=== PATIENT | male | born 1930 | race Caucasian/White ===

== ENCOUNTER 2018-11-13 12:27 | Observation (INO) | payer MEDICARE ==
[2018-11-13] MEDS ORDERED: Sodium Chloride 0.9% 1000 ML 1,000 ML IV STA (13:27)
--- NOTE | 2018-11-13 13:34 | ERPHSYRPT ---
- History of Present Illness Time Seen by Provider: 11/13/18 13:31 Source: patient, family Exam Limitations: no limitations Patient Subjective Stated Complaint: overall weakness, hasn't really ate anything since , no desire to drink anything, tingling in right middle finger for 1 week, just doesn't feel right Triage Nursing Assessment: Pt c/o of overall weakness for the past couple of days, hasn't really ate anything since , no desire to drink anything, mucous membranes dry, tingling in right middle finger for past week, was on vacation and family reports some confusion that has resolved, states "I just don 't feel right", lungs clear, vitals normal, pulses normal, sinus rhythm, A&O x3 , walked with unsteady gait, denies pain Physician History: overall weakness, hasn't really ate anything since , no desire to drink anything, tingling in right middle finger for 1 week, just doesn't feel right family reports some confusion that has resolved, states "I just don't feel right " Timing/Duration: day(s) Associated Symptoms: weakness Allergies/Adverse Reactions: No Known Drug Allergies Allergy (Verified 07/29/16 15:26) Home Medications: [place]-3 Fatty Acids [[place]-3] 1,000 mg PO DAILY 09/16/14 [History] FA/Mv,Ca,Iron,Min/Lycopene/Lut [Centrum Tablet] 1 each PO DAILY 12/12/14 [ History] Indapamide 2.5 mg PO DAILY 12/12/14 [History] Metoprolol Tartrate 25 mg PO DAILY 12/12/14 [History] Gabapentin 300 mg PO TID 11/13/18 [History] Hx Tetanus, Diphtheria Vaccination/Date Given: Yes (UNKNOWN) Hx Influenza Vaccination/Date Given: Yes Hx Pneumococcal Vaccination/Date Given: Yes - Review of Systems Constitutional: Weakness, No Fever, No Chills Eyes: No Symptoms Ears, Nose, & Throat: No Symptoms Respiratory: No Cough, No Dyspnea Cardiac: No Chest Pain, No Edema, No Syncope Abdominal/Gastrointestinal: No Abdominal Pain, No Nausea, No Vomiting, No Diarrhea Genitourinary Symptoms: No Dysuria Musculoskeletal: No Back Pain, No Neck Pain Skin: No Rash Neurological: No Dizziness, No Focal Weakness, No Sensory Changes Psychological: No Symptoms Endocrine: No Symptoms All Other Systems: Reviewed and Negative - Past Medical History Pertinent Past Medical History: Yes Neurological History: No Pertinent History ENT History: No Pertinent History Cardiac History: Hypertension Respiratory History: No Pertinent History Endocrine Medical History: No Pertinent History Musculoskeletal History: Arthritis, Degenerative Disk Disease GI Medical History: No Pertinent History History: No Pertinent History Psycho-Social History: No Pertinent History Male Reproductive Disorders: No Pertinent History Other Medical History: BACK PAIN, Abdominal aortic aneurysm - Past Surgical History Past Surgical History: Yes Neuro Surgical History: No Pertinent History Cardiac: No Pertinent History Respiratory: No Pertinent History Gastrointestinal: Cholecystectomy, Other Genitourinary: No Pertinent History Musculoskeletal: Orthopedic Surgery Male Surgical History: No Pertinent History Other Surgical History: back surgery, EGD w/ dilitation, bilateral knee surgeries-repairs on minicus, VEDA - Social History Smoking Status: Former smoker Exposure to second hand smoke: No Drug Use: none Patient Lives Alone: No - Nursing Vital Signs Nursing Vital Signs: Initial Vital Signs Temperature 98.1 F 11/13/18 12:56 Pulse Rate 95 H 11/13/18 12:56 Blood Pressure 128/83 11/13/18 12:56 O2 Sat by Pulse Oximetry 94 L 11/13/18 12:56 Pain Scale Pain Intensity 0 - Physical Exam General Appearance: no apparent distress, alert Eye Exam: PERRL/EOMI, eyes nml inspection Ears, Nose, Throat Exam: normal ENT inspection, TMs normal, pharynx normal, moist mucous membranes Neck Exam: normal inspection, non-tender, supple, full range of motion Respiratory Exam: normal breath sounds, lungs clear, No respiratory distress Cardiovascular Exam: regular rate/rhythm, normal heart sounds, normal peripheral pulses Gastrointestinal/Abdomen Exam: soft, normal bowel sounds, No tenderness, No mass Back Exam: normal inspection, normal range of motion, No CVA tenderness, No vertebral tenderness Extremity Exam: normal inspection, normal range of motion, pelvis stable Neurologic Exam: alert, oriented x 3, cooperative, normal mood/affect, nml cerebellar function, nml station & gait, sensation nml, No motor deficits Skin Exam: normal color, warm, dry, No rash Lymphatic Exam: No adenopathy SpO2: 94 - Course Nursing assessment & vital signs reviewed: Yes - Radiology Exams Chest X-ray Interpretation: Reviewed by me (COPD changes) Ordered Tests: Active Orders 24 hr Category Date Time Status Clean Catch Urine Specimen STAT Care 11/13/18 13:27 Active EKG-ER Only STAT Care 11/13/18 13:27 Active CHEST 1 VIEW (PORTABLE) Stat Exams 11/13/18 13:44 Taken CBC W DIFF Stat Lab 11/13/18 13:35 Completed CMP Stat Lab 11/13/18 13:35 Completed Lactic Acid Stat Lab 11/13/18 13:27 Completed MAGNESIUM Stat Lab 11/13/18 13:35 Completed NT PRO BNP Stat Lab 11/13/18 13:35 Completed TROPONIN Q3H Lab 11/13/18 13:35 Completed TROPONIN Q3H Lab 11/13/18 16:30 Ordered TROPONIN Q3H Lab 11/13/18 19:30 Ordered TROPONIN Q3H Lab 11/13/18 22:30 Ordered TROPONIN Q3H Lab 11/14/18 01:30 Ordered UA W/RFX UR CULTURE Stat Lab 11/13/18 14:41 Ordered Transfer Order Routine Transfer 11/13/18 Ordered Medication Summary Discontinued Medications Generic Name Dose Route Start Last Admin Trade Name Anastasiya PRN Reason Stop Dose Admin Sodium Chloride 1,000 mls @ 999 mls/hr 11/13/18 13:27 11/13/18 14:53 Sodium Chloride 0.9% 1000 Ml IV 11/13/18 14:27 Infused .Q1H1M STA Infusion Sodium Chloride Confirm 11/13/18 13:36 Sodium Chloride 0.9% 1000 Ml Administered 11/13/18 13:37 Dose 1,000 mls @ ud .ROUTE .STK-MED ONE Lab/Rad Data: Laboratory Result Diagrams 11/13/18 13:35 11/13/18 13:35 Laboratory Results 11/13/18 11/13/18 11/13/18 Range/Units 13:35 13:35 13:35 WBC 11.6 H (4.0-10.5) K/mm3 RBC 3.69 L (4.1-5.6) M/mm3 Hgb 10.9 L (12.5-18.0) gm/dl Hct 33.4 L (42-50) % MCV 90.5 (78-100) fl MCH 29.5 (26-32) pg MCHC 32.6 (32-36) g/dl RDW 14.7 H (11.5-14.0) % Plt Count 226 (150-450) K/mm3 MPV 8.9 (6-9.5) fl Gran % 75.6 H (36.0-66.0) % Eos # (Auto) 0.18 (0-0.5) Absolute Lymphs (auto) 1.69 (1.0-4.6) Absolute Monos (auto) 0.93 (0.0-1.3) Lymphocytes % 14.6 L (24.0-44.0) % Monocytes % 8.0 (0.0-12.0) % Eosinophils % 1.6 (0.00-5.0) % Basophils % 0.2 (0.0-0.4) % Absolute Granulocytes 8.74 H (1.4-6.9) Basophils # 0.02 (0-0.4) Sodium 140 (137-145) mmol/L Potassium 3.0 L (3.5-5.1) mmol/L Chloride 107 (98-107) mmol/L Carbon Dioxide 25 (22-30) mmol/L Anion Gap 11.3 (5-15) MEQ/L BUN 25 H (9-20) mg/dL Creatinine 1.36 H (0.66-1.25) mg/dL Estimated GFR 52.7 ML/MIN Glucose 95 (74-106) mg/dL Lactic Acid (0.4-2.0) Calcium 9.3 (8.4-10.2) mg/dL Magnesium 1.8 (1.6-2.3) mg/dL Total Bilirubin 0.70 (0.2-1.3) mg/dL AST 20 (17-59) U/L ALT 17 (0-50) U/L Alkaline Phosphatase 51 (38-126) U/L Troponin I 0.034 (0.000-0.034) ng/mL NT-Pro-B Natriuret Pep 218 (0-1800) pg/mL Serum Total Protein 6.9 (6.3-8.2) g/dL Albumin 3.5 (3.5-5.0) g/dL 11/13/18 Range/Units 13:27 WBC (4.0-10.5) K/mm3 RBC (4.1-5.6) M/mm3 Hgb (12.5-18.0) gm/dl Hct (42-50) % MCV (78-100) fl MCH (26-32) pg MCHC (32-36) g/dl RDW (11.5-14.0) % Plt Count (150-450) K/mm3 MPV (6-9.5) fl Gran % (36.0-66.0) % Eos # (Auto) (0-0.5) Absolute Lymphs (auto) (1.0-4.6) Absolute Monos (auto) (0.0-1.3) Lymphocytes % (24.0-44.0) % Monocytes % (0.0-12.0) % Eosinophils % (0.00-5.0) % Basophils % (0.0-0.4) % Absolute Granulocytes (1.4-6.9) Basophils # (0-0.4) Sodium (137-145) mmol/L Potassium (3.5-5.1) mmol/L Chloride (98-107) mmol/L Carbon Dioxide (22-30) mmol/L Anion Gap (5-15) MEQ/L BUN (9-20) mg/dL Creatinine (0.66-1.25) mg/dL Estimated GFR ML/MIN Glucose (74-106) mg/dL Lactic Acid 1.1 (0.4-2.0) Calcium (8.4-10.2) mg/dL Magnesium (1.6-2.3) mg/dL Total Bilirubin (0.2-1.3) mg/dL AST (17-59) U/L ALT (0-50) U/L Alkaline Phosphatase (38-126) U/L Troponin I (0.000-0.034) ng/mL NT-Pro-B Natriuret Pep (0-1800) pg/mL Serum Total Protein (6.3-8.2) g/dL Albumin (3.5-5.0) g/dL - Progress Progress: unchanged Discussed with : Beltran (Dr Martínez covering) Will see patient in: hospital (observation) Counseled pt/family regarding: lab results, diagnosis, need for follow-up, rad results - Departure Departure Disposition: Observation Clinical Impression: Hypokalemia UTI (urinary tract infection) Qualifiers: Urinary tract infection type: acute cystitis Hematuria presence: without hematuria Qualified Code(s): N30.00 - Acute cystitis without hematuria Condition: Fair Critical Care Time: Yes Critical Care Time(excluding separately billable procedures): 30-74 minutes Referrals: CRISTINA HORTA MD [Primary Care Provider] -
[2018-11-13] MEDS ORDERED: Sodium Chloride 0.9% 1000 ML 1,000 ML ONE (13:36)
[2018-11-13 14:01] LABS: BASOPHIL % 0.2 % (0.0-0.4); Basophil (Absolute #) 0.02 (0-0.4); Eosinophil % 1.6 % (0.00-5.0); Eosinophil (Absolute #) 0.18 (0-0.5); Granulocyte Absolute (ANC) 8.74 (1.4-6.9); Granulocytes % 75.6 % (36.0-66.0); Hematocrit 33.4 % (42-50); Hemoglobin 10.9 gm/dl (12.5-18.0); Lymphocyte (Absolute #) 1.69 (1.0-4.6); Lymphocytes % 14.6 % (24.0-44.0); Mean Cell Volume 90.5 fl (78-100); Mean Corpuscular Hemoglobin 29.5 pg (26-32); Mean Corpuscular Hgb Concent. 32.6 g/dl (32-36); Mean Platelet Volume 8.9 fl (6-9.5); Monocyte (Absolute #) 0.93 (0.0-1.3); Platelet Count 226 K/mm3 (150-450); Red Blood Count 3.69 M/mm3 (4.1-5.6); Red Cell Distribution Width 14.7 % (11.5-14.0); White Blood Count 11.6 K/mm3 (4.0-10.5)
[2018-11-13 14:24] LABS: ALBUMIN 3.5 g/dL (3.5-5.0); ANION GAP 11.3 MEQ/L (5-15); BILIRUBIN,TOTAL 0.7 mg/dL (0.2-1.3); Calcium 9.3 mg/dL (8.4-10.2); Creatinine 1 1.36 mg/dL (0.66-1.25); MAGNESIUM 1.8 mg/dL (1.6-2.3); Total Protein 6.9 g/dL (6.3-8.2)
[2018-11-13] MEDS ORDERED: TYLENOL 325 MG PO PRN (15:07)
[2018-11-13 15:08] LABS: Appearance CLEAR (CLEAR); Bacteria FEW /HPF (NEGATIVE); Bilirubin NEGATIVE (NEGATIVE); Blood SMALL Ery/ul (0-5); Epithelial Cells RARE /HPF (FEW); Glucose NEGATIVE (NEGATIVE); Ketones SMALL (NEGATIVE); Leukocyte Esterase NEGATIVE (NEGATIVE); Mucus SLIGHT /HPF (NEGATIVE); Nitrite NEGATIVE (NEGATIVE); Protein,Urine Dip 30 (Negative); Specific Gravity 1.019 (1.005-1.025); Urobilinogen 2 mg/dL (0-1)
[2018-11-13] MEDS: ROCEPHIN 1 Gm-D5w 50 ml Bag** 1 G/50 ML IVPB IV SCH (15:56)
[2018-11-13] MEDS: Sodium Chloride 0.9% W/ 20 mEq KCl/LITER 1,000 ML IV SCH (15:56)
--- NOTE | 2018-11-13 20:09 | XRAY ---
Indication: Weakness. Comparison: August 19, 2014. Portable apical lordotic chest hyperinflated again with lingular calcified granuloma. No focal infiltrate, consolidation, or large effusion. Heart and mediastinal structures within normal limits. Bony thorax intact again with mild osteopenia and degenerative changes. Impression: Nonacute hyperinflated chest with chronic features.
[2018-11-13] MEDS: NEURONTIN 300 MG PO SCH (21:19)
[2018-11-13] MEDS: Pepcid 20 MG VIAL IV SCH (21:19)
[2018-11-14 02:41] LABS: BASOPHIL % 0.3 % (0.0-0.4); Basophil (Absolute #) 0.03 (0-0.4); Eosinophil % 3.5 % (0.00-5.0); Eosinophil (Absolute #) 0.36 (0-0.5); Granulocyte Absolute (ANC) 6.87 (1.4-6.9); Hematocrit 28.1 % (42-50); Hemoglobin 9.1 gm/dl (12.5-18.0); Lymphocyte (Absolute #) 2.23 (1.0-4.6); Lymphocytes % 21.5 % (24.0-44.0); Mean Cell Volume 91.2 fl (78-100); Mean Corpuscular Hemoglobin 29.5 pg (26-32); Mean Corpuscular Hgb Concent. 32.4 g/dl (32-36); Monocytes % 8.7 % (0.0-12.0); Platelet Count 194 K/mm3 (150-450); Red Blood Count 3.08 M/mm3 (4.1-5.6); Red Cell Distribution Width 14.4 % (11.5-14.0); White Blood Count 10.4 K/mm3 (4.0-10.5)
[2018-11-14 02:53] LABS: ALBUMIN 2.7 g/dL (3.5-5.0); ALKALINE PHOSPHATASE 43 U/L (38-126); ANION GAP 9.6 MEQ/L (5-15); BLOOD UREA NITROGEN 22 mg/dL (9-20); CHLORIDE 108 mmol/L (98-107); Calcium 8.4 mg/dL (8.4-10.2); Carbon Dioxide 24 mmol/L (22-30); Creatinine 1 1.11 mg/dL (0.66-1.25); Glucose 76 mg/dL (74-106); SGOT/AST 18 U/L (17-59); SGPT/ALT 15 U/L (0-50); SODIUM 139 mmol/L (137-145); Total Protein 5.4 g/dL (6.3-8.2)
[2018-11-14 02:55] LABS: Potassium 3.1 mmol/L (3.5-5.1)
[2018-11-14] MEDS: Sodium Chloride 0.9% W/ 20 mEq KCl/LITER 1,000 ML IV SCH ×2 (03:20→21:32)
--- NOTE | 2018-11-14 08:29 | PCM.HP ---
History of Present Illness - Chief Complaint Chief Complaint: weakness hypokalemia History of Present Illness: is a 87 year old male who arrived yesterday complaining of weakness and feeling poorly, he denies chest pain or shortness of breath. no recent vomiting or diarrhea. he is feeling better since receiving IV fluids. - Review of Systems Constitutional: Weakness, No Fever, No Chills Respiratory: No Cough, No Short Of Breath Cardiac: No Chest Pain, No Edema, No Syncope Abdominal/Gastrointestinal: No Abdominal Pain, No Nausea, No Vomiting, No Diarrhea Genitourinary Symptoms: No Dysuria Skin: No Rash All Other Systems: Reviewed and Negative Medications & Allergies Home Medications: Home Medication List Indapamide 2.5 mg PO DAILY 12/12/14 [History Confirmed 11/13/18] Metoprolol Tartrate 25 mg PO DAILY 12/12/14 [History Confirmed 11/13/18] Gabapentin 300 mg PO TID 11/13/18 [History Confirmed 11/13/18] Allergies/Adverse Reactions: Allergies Allergy/AdvReac Type Severity Reaction Status Date / Time No Known Drug Allergies Allergy Verified 07/29/16 15:26 - Past Medical History Past Medical History: Yes Neurological History: No Pertinent History ENT History: No Pertinent History Cardiac History: Hypertension Respiratory History: No Pertinent History Endocrine Medical History: No Pertinent History Musculoskelatal History: Arthritis, Degenerative Disk Disease GI Medical History: No Pertinent History History: No Pertinent History Pyscho-Social History: No Pertinent History Male Reproductive Disorders: No Pertinent History Comment: BACK PAIN, Abdominal aortic aneurysm - Past Surgical History Past Surgical History: Yes Neuro Surgical History: No Pertinent History Cardiac History: No Pertinent History Respiratory Surgery: No Pertinent History GI Surgical History: Cholecystectomy, Other Genitourinary Surgical Hx: No Pertinent History Musculskeletal Surgical Hx: Orthopedic Surgery Male Surgical History: No Pertinent History Other Surgical History: back surgery, EGD w/ dilitation, bilateral knee surgeries-repairs on minicus, VEDA - Social History Smoking Status: Former smoker Exposure to second hand smoke: No Alcohol: Occasionally Drug Use: none - Physical Exam Vital Signs: Vital Signs - 24 hr Temp Pulse Resp BP Pulse Ox 11/14/18 07:33 97.5 F 81 16 138/67 96 11/14/18 04:00 97.7 F 80 18 127/63 95 11/14/18 00:00 97.6 F 72 18 119/56 94 L 11/13/18 20:00 98.5 F 92 H 16 139/92 94 L 11/13/18 15:13 97.6 F 97 H 20 166/82 99 11/13/18 14:55 94 L 11/13/18 14:51 92 H 27 H 139/83 96 11/13/18 12:56 98.1 F 95 H 128/83 94 L General Appearance: no apparent distress, alert Neurologic Exam: alert, oriented x 3, cooperative Eye Exam: PERRL/EOMI, eyes nml inspection Respiratory Exam: normal breath sounds, lungs clear, No respiratory distress Cardiovascular Exam: regular rate/rhythm, normal heart sounds, normal peripheral pulses Gastrointestinal/Abdomen Exam: soft, normal bowel sounds, No tenderness, No mass Extremity Exam: normal inspection, normal range of motion, pelvis stable Skin Exam: normal color, warm, dry, No rash Results - Labs Lab/Micro Results: Lab Results-Last 24 Hours 11/13/18 11/13/18 11/13/18 Range/Units 13:27 13:35 13:35 WBC 11.6 H (4.0-10.5) K/mm3 RBC 3.69 L (4.1-5.6) M/mm3 Hgb 10.9 L (12.5-18.0) gm/dl Hct 33.4 L (42-50) % MCV 90.5 (78-100) fl MCH 29.5 (26-32) pg MCHC 32.6 (32-36) g/dl RDW 14.7 H (11.5-14.0) % Plt Count 226 (150-450) K/mm3 MPV 8.9 (6-9.5) fl Gran % 75.6 H (36.0-66.0) % Eos # (Auto) 0.18 (0-0.5) Absolute Lymphs (auto) 1.69 (1.0-4.6) Absolute Monos (auto) 0.93 (0.0-1.3) Lymphocytes % 14.6 L (24.0-44.0) % Monocytes % 8.0 (0.0-12.0) % Eosinophils % 1.6 (0.00-5.0) % Basophils % 0.2 (0.0-0.4) % Absolute Granulocytes 8.74 H (1.4-6.9) Basophils # 0.02 (0-0.4) Sodium 140 (137-145) mmol/L Potassium 3.0 L (3.5-5.1) mmol/L Chloride 107 (98-107) mmol/L Carbon Dioxide 25 (22-30) mmol/L Anion Gap 11.3 (5-15) MEQ/L BUN 25 H (9-20) mg/dL Creatinine 1.36 H (0.66-1.25) mg/dL Estimated GFR 52.7 ML/MIN Glucose 95 (74-106) mg/dL Lactic Acid 1.1 (0.4-2.0) Calcium 9.3 (8.4-10.2) mg/dL Magnesium 1.8 (1.6-2.3) mg/dL Total Bilirubin 0.70 (0.2-1.3) mg/dL AST 20 (17-59) U/L ALT 17 (0-50) U/L Alkaline Phosphatase 51 (38-126) U/L Troponin I (0.000-0.034) ng/mL NT-Pro-B Natriuret Pep 218 (0-1800) pg/mL Serum Total Protein 6.9 (6.3-8.2) g/dL Albumin 3.5 (3.5-5.0) g/dL Urine Color (YELLOW) Urine Appearance (CLEAR) Urine pH (5-6) Ur Specific [place] (1.005-1.025) Urine Protein (Negative) Urine Ketones (NEGATIVE) Urine Blood (0-5) Sanjay/ul Urine Nitrite (NEGATIVE) Urine Bilirubin (NEGATIVE) Urine Urobilinogen (0-1) mg/dL Ur Leukocyte Esterase (NEGATIVE) Urine WBC (Auto) (0-5) /HPF Urine RBC (Auto) (0-2) /HPF U Hyaline Cast (Auto) (0-2) /LPF U Epithel Cells (Auto) (FEW) /HPF Urine Bacteria (Auto) (NEGATIVE) /HPF Urine Mucus (Auto) (NEGATIVE) /HPF Urine Culture Reflexed (NO) Urine Glucose (NEGATIVE) mg/dL 11/13/18 11/13/18 11/13/18 Range/Units 13:35 14:41 16:16 WBC (4.0-10.5) K/mm3 RBC (4.1-5.6) M/mm3 Hgb (12.5-18.0) gm/dl Hct (42-50) % MCV (78-100) fl MCH (26-32) pg MCHC (32-36) g/dl RDW (11.5-14.0) % Plt Count (150-450) K/mm3 MPV (6-9.5) fl Gran % (36.0-66.0) % Eos # (Auto) (0-0.5) Absolute Lymphs (auto) (1.0-4.6) Absolute Monos (auto) (0.0-1.3) Lymphocytes % (24.0-44.0) % Monocytes % (0.0-12.0) % Eosinophils % (0.00-5.0) % Basophils % (0.0-0.4) % Absolute Granulocytes (1.4-6.9) Basophils # (0-0.4) Sodium (137-145) mmol/L Potassium (3.5-5.1) mmol/L Chloride (98-107) mmol/L Carbon Dioxide (22-30) mmol/L Anion Gap (5-15) MEQ/L BUN (9-20) mg/dL Creatinine (0.66-1.25) mg/dL Estimated GFR ML/MIN Glucose (74-106) mg/dL Lactic Acid (0.4-2.0) Calcium (8.4-10.2) mg/dL Magnesium (1.6-2.3) mg/dL Total Bilirubin (0.2-1.3) mg/dL AST (17-59) U/L ALT (0-50) U/L Alkaline Phosphatase (38-126) U/L Troponin I 0.034 0.033 (0.000-0.034) ng/mL NT-Pro-B Natriuret Pep (0-1800) pg/mL Serum Total Protein (6.3-8.2) g/dL Albumin (3.5-5.0) g/dL Urine Color YELLOW (YELLOW) Urine Appearance CLEAR (CLEAR) Urine pH 5.0 (5-6) Ur Specific [place] 1.019 (1.005-1.025) Urine Protein 30 (Negative) Urine Ketones SMALL (NEGATIVE) Urine Blood SMALL (0-5) Sanjay/ul Urine Nitrite NEGATIVE (NEGATIVE) Urine Bilirubin NEGATIVE (NEGATIVE) Urine Urobilinogen 2 (0-1) mg/dL Ur Leukocyte Esterase NEGATIVE (NEGATIVE) Urine WBC (Auto) 6-10 (0-5) /HPF Urine RBC (Auto) 6-10 (0-2) /HPF U Hyaline Cast (Auto) 6-10 (0-2) /LPF U Epithel Cells (Auto) RARE (FEW) /HPF Urine Bacteria (Auto) FEW (NEGATIVE) /HPF Urine Mucus (Auto) SLIGHT (NEGATIVE) /HPF Urine Culture Reflexed YES (NO) Urine Glucose NEGATIVE (NEGATIVE) mg/dL 11/13/18 11/13/18 11/14/18 Range/Units 19:37 22:26 02:38 WBC (4.0-10.5) K/mm3 RBC (4.1-5.6) M/mm3 Hgb (12.5-18.0) gm/dl Hct (42-50) % MCV (78-100) fl MCH (26-32) pg MCHC (32-36) g/dl RDW (11.5-14.0) % Plt Count (150-450) K/mm3 MPV (6-9.5) fl Gran % (36.0-66.0) % Eos # (Auto) (0-0.5) Absolute Lymphs (auto) (1.0-4.6) Absolute Monos (auto) (0.0-1.3) Lymphocytes % (24.0-44.0) % Monocytes % (0.0-12.0) % Eosinophils % (0.00-5.0) % Basophils % (0.0-0.4) % Absolute Granulocytes (1.4-6.9) Basophils # (0-0.4) Sodium (137-145) mmol/L Potassium (3.5-5.1) mmol/L Chloride (98-107) mmol/L Carbon Dioxide (22-30) mmol/L Anion Gap (5-15) MEQ/L BUN (9-20) mg/dL Creatinine (0.66-1.25) mg/dL Estimated GFR ML/MIN Glucose (74-106) mg/dL Lactic Acid (0.4-2.0) Calcium (8.4-10.2) mg/dL Magnesium (1.6-2.3) mg/dL Total Bilirubin (0.2-1.3) mg/dL AST (17-59) U/L ALT (0-50) U/L Alkaline Phosphatase (38-126) U/L Troponin I 0.041 H* 0.041 H* 0.047 H* (0.000-0.034) ng/mL NT-Pro-B Natriuret Pep (0-1800) pg/mL Serum Total Protein (6.3-8.2) g/dL Albumin (3.5-5.0) g/dL Urine Color (YELLOW) Urine Appearance (CLEAR) Urine pH (5-6) Ur Specific [place] (1.005-1.025) Urine Protein (Negative) Urine Ketones (NEGATIVE) Urine Blood (0-5) Sanjay/ul Urine Nitrite (NEGATIVE) Urine Bilirubin (NEGATIVE) Urine Urobilinogen (0-1) mg/dL Ur Leukocyte Esterase (NEGATIVE) Urine WBC (Auto) (0-5) /HPF Urine RBC (Auto) (0-2) /HPF U Hyaline Cast (Auto) (0-2) /LPF U Epithel Cells (Auto) (FEW) /HPF Urine Bacteria (Auto) (NEGATIVE) /HPF Urine Mucus (Auto) (NEGATIVE) /HPF Urine Culture Reflexed (NO) Urine Glucose (NEGATIVE) mg/dL 11/14/18 11/14/18 Range/Units 02:38 02:38 WBC 10.4 (4.0-10.5) K/mm3 RBC 3.08 L (4.1-5.6) M/mm3 Hgb 9.1 L (12.5-18.0) gm/dl Hct 28.1 L (42-50) % MCV 91.2 (78-100) fl MCH 29.5 (26-32) pg MCHC 32.4 (32-36) g/dl RDW 14.4 H (11.5-14.0) % Plt Count 194 (150-450) K/mm3 MPV 9.0 (6-9.5) fl Gran % 66.0 (36.0-66.0) % Eos # (Auto) 0.36 (0-0.5) Absolute Lymphs (auto) 2.23 (1.0-4.6) Absolute Monos (auto) 0.90 (0.0-1.3) Lymphocytes % 21.5 L (24.0-44.0) % Monocytes % 8.7 (0.0-12.0) % Eosinophils % 3.5 (0.00-5.0) % Basophils % 0.3 (0.0-0.4) % Absolute Granulocytes 6.87 (1.4-6.9) Basophils # 0.03 (0-0.4) Sodium 139 (137-145) mmol/L Potassium 3.1 L (3.5-5.1) mmol/L Chloride 108 H (98-107) mmol/L Carbon Dioxide 24 (22-30) mmol/L Anion Gap 9.6 (5-15) MEQ/L BUN 22 H (9-20) mg/dL Creatinine 1.11 (0.66-1.25) mg/dL Estimated GFR > 60.0 ML/MIN Glucose 76 (74-106) mg/dL Lactic Acid (0.4-2.0) Calcium 8.4 (8.4-10.2) mg/dL Magnesium (1.6-2.3) mg/dL Total Bilirubin 0.50 (0.2-1.3) mg/dL AST 18 (17-59) U/L ALT 15 (0-50) U/L Alkaline Phosphatase 43 (38-126) U/L Troponin I (0.000-0.034) ng/mL NT-Pro-B Natriuret Pep (0-1800) pg/mL Serum Total Protein 5.4 L (6.3-8.2) g/dL Albumin 2.7 L (3.5-5.0) g/dL Urine Color (YELLOW) Urine Appearance (CLEAR) Urine pH (5-6) Ur Specific [place] (1.005-1.025) Urine Protein (Negative) Urine Ketones (NEGATIVE) Urine Blood (0-5) Sanjay/ul Urine Nitrite (NEGATIVE) Urine Bilirubin (NEGATIVE) Urine Urobilinogen (0-1) mg/dL Ur Leukocyte Esterase (NEGATIVE) Urine WBC (Auto) (0-5) /HPF Urine RBC (Auto) (0-2) /HPF U Hyaline Cast (Auto) (0-2) /LPF U Epithel Cells (Auto) (FEW) /HPF Urine Bacteria (Auto) (NEGATIVE) /HPF Urine Mucus (Auto) (NEGATIVE) /HPF Urine Culture Reflexed (NO) Urine Glucose (NEGATIVE) mg/dL - Radiology Impressions Radiology Exams & Impressions: Radiology Procedures Category Date Time Status CHEST 1 VIEW (PORTABLE) Stat Exams 11/13/18 13:44 Completed Assessment/Plan (1) Hypokalemia Current Visit: Yes Status: Acute Assessment & Plan: mild improvement, receiving potassium in fluids. will add po Code(s): E87.6 - HYPOKALEMIA (2) UTI (urinary tract infection) Current Visit: Yes Status: Acute Qualifiers: Urinary tract infection type: acute cystitis Hematuria presence: without hematuria Qualified Code(s): N30.00 - Acute cystitis without hematuria Assessment & Plan: continue rocephin Code(s): N39.0 - URINARY TRACT INFECTION, SITE NOT SPECIFIED
[2018-11-14] MEDS: Lopressor 25MG Tab PO SCH (09:39)
[2018-11-14] MEDS: ENOXAPARIN SODIUM SQ SCH (09:39)
[2018-11-14] MEDS: Pepcid 20 MG VIAL IV SCH ×2 (09:39→21:44)
[2018-11-14] MEDS: NEURONTIN 300 MG PO SCH ×3 (09:40→21:34)
[2018-11-14] MEDS: Klor Con 10 MEQ PO SCH (09:40)
[2018-11-14] MEDS: INDAPAMIDE PO SCH (09:41)
[2018-11-14] MEDS: ROCEPHIN 1 Gm-D5w 50 ml Bag** 1 G/50 ML IVPB IV SCH (09:41)
[2018-11-15 05:10] VITALS: O2SAT 94
[2018-11-15 06:11] LABS: BASOPHIL % 0.4 % (0.0-0.4); Basophil (Absolute #) 0.03 (0-0.4); Eosinophil % 4.4 % (0.00-5.0); Eosinophil (Absolute #) 0.36 (0-0.5); Granulocyte Absolute (ANC) 5.56 (1.4-6.9); Granulocytes % 67.1 % (36.0-66.0); Hematocrit 29.9 % (42-50); Hemoglobin 9.5 gm/dl (12.5-18.0); Lymphocytes % 20.6 % (24.0-44.0); Mean Corpuscular Hemoglobin 29.2 pg (26-32); Mean Corpuscular Hgb Concent. 31.8 g/dl (32-36); Mean Platelet Volume 9.4 fl (6-9.5); Monocyte (Absolute #) 0.62 (0.0-1.3); Monocytes % 7.5 % (0.0-12.0); Platelet Count 190 K/mm3 (150-450); Red Blood Count 3.25 M/mm3 (4.1-5.6); Red Cell Distribution Width 14.5 % (11.5-14.0); White Blood Count 8.3 K/mm3 (4.0-10.5)
[2018-11-15 06:27] LABS: ANION GAP 10.5 MEQ/L (5-15); BLOOD UREA NITROGEN 19 mg/dL (9-20); CHLORIDE 111 mmol/L (98-107); Calcium 8.7 mg/dL (8.4-10.2); Carbon Dioxide 23 mmol/L (22-30); Creatinine 1 1.04 mg/dL (0.66-1.25); Glucose 74 mg/dL (74-106); MAGNESIUM 1.8 mg/dL (1.6-2.3); Potassium 3.4 mmol/L (3.5-5.1); SODIUM 141 mmol/L (137-145)
[2018-11-15 07:40] VITALS: BP 147/69; PULSE 72
--- NOTE | 2018-11-15 09:08 | PCM.DS ---
Discharge Summary Date of Admission: 11/13/18 15:06 Admitting Physician: CLAUDIO IBARRA Primary Care Provider: CRISTINA HORTA PARKER Allergies Allergies No Known Drug Allergies Allergy (Verified 07/29/16 15:26) Hospital Summary - Hospital Course Hospital Course: patient was admitted with weakness, found to have low potassium. was started on antibiotics but urine culture returned negative. - Vitals & Intake/Output Vital Signs: Vital Signs Temperature 98.1 F 11/15/18 07:39 Pulse Rate 72 11/15/18 07:39 Respiratory Rate 18 11/15/18 07:39 Blood Pressure 147/69 11/15/18 07:39 O2 Sat by Pulse Oximetry 94 L 11/15/18 07:39 Intake & Output: Intake & Output 11/12/18 11/13/18 11/14/18 11/15/18 11:59 11:59 11:59 11:59 Intake Total 2184 2933 Balance 2184 2933 Weight 95.8 kg - Lab Result Diagrams: 11/15/18 05:20 11/15/18 05:20 Lab Results-Last 24 Hrs: Lab Results-Last 24 Hours 11/15/18 11/15/18 Range/Units 05:20 05:20 WBC 8.3 (4.0-10.5) K/mm3 RBC 3.25 L (4.1-5.6) M/mm3 Hgb 9.5 L (12.5-18.0) gm/dl Hct 29.9 L (42-50) % MCV 92.0 (78-100) fl MCH 29.2 (26-32) pg MCHC 31.8 L (32-36) g/dl RDW 14.5 H (11.5-14.0) % Plt Count 190 (150-450) K/mm3 MPV 9.4 (6-9.5) fl Gran % 67.1 H (36.0-66.0) % Eos # (Auto) 0.36 (0-0.5) Absolute Lymphs (auto) 1.70 (1.0-4.6) Absolute Monos (auto) 0.62 (0.0-1.3) Lymphocytes % 20.6 L (24.0-44.0) % Monocytes % 7.5 (0.0-12.0) % Eosinophils % 4.4 (0.00-5.0) % Basophils % 0.4 (0.0-0.4) % Absolute Granulocytes 5.56 (1.4-6.9) Basophils # 0.03 (0-0.4) Sodium 141 (137-145) mmol/L Potassium 3.4 L (3.5-5.1) mmol/L Chloride 111 H (98-107) mmol/L Carbon Dioxide 23 (22-30) mmol/L Anion Gap 10.5 (5-15) MEQ/L BUN 19 (9-20) mg/dL Creatinine 1.04 (0.66-1.25) mg/dL Estimated GFR > 60.0 ML/MIN Glucose 74 (74-106) mg/dL Calcium 8.7 (8.4-10.2) mg/dL Magnesium 1.8 (1.6-2.3) mg/dL Micro Results-Entire Visit: Microbiology 11/13/18 14:41 Urine Culture - Final Clean Catch Midstream NO GROWTH - Radiology Exams Ordered Rad Exams-Entire Visit: Radiology Procedures Category Date Time Status CHEST 1 VIEW (PORTABLE) Stat Exams 11/13/18 13:44 Completed - Procedures and Test Procedures and Tests throughout Hospitalization: Therapy Orders & Screens 11/13/18 15:07 Oxygen Nasal Cannula 2 lpm Comment: Discharge Exam General Appearance: no apparent distress, alert Neurologic Exam: alert, oriented x 3 Skin Exam: normal color, warm, dry Respiratory Exam: normal breath sounds, lungs clear, No respiratory distress Cardiovascular Exam: regular rate/rhythm, normal heart sounds Gastrointestinal/Abdomen Exam: soft, No tenderness, No mass Extremity Exam: normal inspection, normal range of motion Final Diagnosis/Problem List - Final Discharge Diagnosis/Problem (1) Weakness Current Visit: Yes Status: Acute Assessment & Plan: resolved with hydration and potassium replacement Code(s): R53.1 - WEAKNESS (2) Hypokalemia Current Visit: Yes Status: Acute Assessment & Plan: replaced Code(s): E87.6 - HYPOKALEMIA (3) UTI (urinary tract infection) Current Visit: Yes Status: Acute Assessment & Plan: urine culture negative, no further abx required Code(s): N39.0 - URINARY TRACT INFECTION, SITE NOT SPECIFIED - Discharge Disposition: Home, Self-Care Condition: Fair Prescriptions: Continue Metoprolol Tartrate 25 mg PO DAILY Indapamide 2.5 mg PO DAILY Gabapentin 300 mg PO TID Follow up with: CRISTINA HORTA MD [Primary Care Provider] - 1 Week
[2018-11-15] MEDS: Lopressor 25MG Tab PO SCH (09:57)
[2018-11-15] MEDS: Klor Con 10 MEQ PO SCH (09:57)
[2018-11-15] MEDS: INDAPAMIDE PO SCH (09:58)
[2018-11-15] MEDS: NEURONTIN 300 MG PO SCH (09:58)
[2018-11-15] MEDS: ENOXAPARIN SODIUM SQ SCH (10:11)
[2018-11-15] MEDS: ROCEPHIN 1 Gm-D5w 50 ml Bag** 1 G/50 ML IVPB IV SCH (10:12)
[2018-11-15] MEDS: Pepcid 20 MG VIAL IV SCH (10:12)
== END 2018-11-15 10:45 | disposition home or self-care (01) ==
LOC: ED 12:27 → MED SURG 15:06
PROVIDERS: ADMIT General Practice; ATTEND Family Medicine
DX: R53.1 Weakness (principal); E87.6 Hypokalemia; N39.0 Urinary tract infection, site not specified; Z79.899 Other long term (current) drug therapy
CPT/HCPCS: 36415; 71045; 80048; 80053; 81001; 83605; 83735; 83880; 84484; 85025; 87086; 93005; 93268; 96360; 99285; G0378; J0696; J1650; A9270-GY

== ENCOUNTER 2018-12-06 02:54 | Observation (INO) | payer MEDICARE ==
--- NOTE | 2018-12-06 03:22 | ERPHSYRPT ---
- History of Present Illness Time Seen by Provider: 12/06/18 03:10 Source: patient, family Exam Limitations: no limitations Patient Subjective Stated Complaint: pt reports shortness of breath beginning yesterday, states he has periods where he cannot catch his breath, pt reports he has not been sleeping well, reports his days and nights are mixed up. pt reports a recent visit to this ED for hypokalemia and dehydration. states he was observed for his hypokalemia and an elevated troponin. Triage Nursing Assessment: pt is aox3, pupils perrl, afebrile, resps easy and non labored, pt appears in no distress, lung sounds are clear and equal, radial pulses are strong and irregular, cap refill < 3 seconds, no edema appreciated. pt skin pale warm dry. Physician History: 88 y/o white male with h/o htn and low potassium in the past, presents with 2 to 3 day h/o worsening intermittent soa. has intermittent substernal nonradiating mild pressure. denies fever, denies cough, denies abd pain. denies diarrhea and denies vomiting Timing/Duration: day(s) (2 to 3) Activities at Onset: none Severity of Dyspnea-Max: mild Severity of Dyspnea-Current: mild Possible Cause: occasional episodes Modifying Factors: Improves With: nothing Associated Symptoms: intermittent, insomnia, No chest pain/discomfort, No muscle spasms hands, No painful breathing, No productive cough, No tightness, No tingling hands Allergies/Adverse Reactions: No Known Drug Allergies Allergy (Verified 12/06/18 03:15) Home Medications: Indapamide 2.5 mg PO DAILY 12/12/14 [History] Metoprolol Tartrate 25 mg PO DAILY 12/12/14 [History] Gabapentin 300 mg PO TID 11/13/18 [History] Hx Tetanus, Diphtheria Vaccination/Date Given: No Hx Influenza Vaccination/Date Given: Yes Hx Pneumococcal Vaccination/Date Given: Yes Immunizations Up to Date: No - Review of Systems Constitutional: No Symptoms Eyes: No Symptoms Ears, Nose, & Throat: No Symptoms Respiratory: Dyspnea (mild), No Cough, No Stridor, No Wheezing Cardiac: No Symptoms Abdominal/Gastrointestinal: No Symptoms Genitourinary Symptoms: No Symptoms Musculoskeletal: No Symptoms Skin: No Symptoms Neurological: No Symptoms Psychological: No Symptoms Endocrine: No Symptoms Hematologic/Lymphatic: No Symptoms Immunological/Allergic: No Symptoms All Other Systems: Reviewed and Negative - Past Medical History Pertinent Past Medical History: Yes Neurological History: No Pertinent History ENT History: No Pertinent History Cardiac History: Hypertension Respiratory History: No Pertinent History Endocrine Medical History: No Pertinent History Musculoskeletal History: Arthritis, Degenerative Disk Disease GI Medical History: No Pertinent History History: No Pertinent History Psycho-Social History: No Pertinent History Male Reproductive Disorders: No Pertinent History Other Medical History: BACK PAIN, Abdominal aortic aneurysm. hypokalemia - Past Surgical History Past Surgical History: Yes Neuro Surgical History: No Pertinent History Cardiac: No Pertinent History Respiratory: No Pertinent History Gastrointestinal: Cholecystectomy, Other Genitourinary: No Pertinent History Musculoskeletal: Orthopedic Surgery Male Surgical History: No Pertinent History Other Surgical History: back surgery, EGD w/ dilitation, bilateral knee surgeries-repairs on minicus, VDEA - Social History Smoking Status: Never smoker Exposure to second hand smoke: No Drug Use: none Patient Lives Alone: No - Nursing Vital Signs Nursing Vital Signs: Initial Vital Signs Temperature 97.8 F 12/06/18 02:55 Pulse Rate 76 12/06/18 02:55 Respiratory Rate 22 12/06/18 02:55 Blood Pressure 159/74 12/06/18 02:55 O2 Sat by Pulse Oximetry 96 12/06/18 02:55 Pain Scale Pain Intensity 0 - Physical Exam General Appearance: no apparent distress, alert Eye Exam: PERRL/EOMI Ears, Nose, Throat Exam: hearing grossly normal, normal ENT inspection, normal pharynx Neck Exam: normal inspection, non-tender, supple, full range of motion Respiratory Exam: normal breath sounds, lungs clear, airway intact, No chest tenderness, No respiratory distress, No accessory muscle use, No rhonchi, No wheezing, No stridor Cardiovascular/Chest Exam: normal heart sounds, regular rate/rhythm, murmur Abdominal/Gastrointestinal Exam: soft, normal bowel sounds, No tenderness, No guarding, No rebound Rectal Exam: not done Extremity Exam: non-tender, normal range of motion, normal inspection Neurologic Exam: alert, oriented x 3, cooperative, 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, normal mood/affect Skin Exam: normal color, warm, dry Lymphatic Exam: No adenopathy SpO2 Interpretation: normal SpO2: 97 O2 Delivery: Room Air - Course Nursing assessment & vital signs reviewed: Yes EKG Interpreted by Me: RATE (71), Sinus Rhythm, Left [place] Deviation, 1st degree AV Block, Other (persisent left ant fascicular block and new pvcs and incomplete rbbb compared to ekg 11/13/18) Ordered Tests: Active Orders 24 hr Category Date Time Status Chief Guard STAT Care 12/06/18 03:25 Active EKG-ER Only STAT Care 12/06/18 03:24 Active IV Insertion STAT Care 12/06/18 03:24 Active Pulse Oximetry (ED) STAT Care 12/06/18 03:24 Active CHEST 1 VIEW (PORTABLE) Stat Exams 12/06/18 03:24 Taken CBC W DIFF Stat Lab 12/06/18 03:25 Completed CMP Stat Lab 12/06/18 03:25 Completed D-DIMER QUANTITATION Stat Lab 12/06/18 03:25 Completed NT PRO BNP Stat Lab 12/06/18 03:25 Completed PROTIME WITH INR Stat Lab 12/06/18 03:25 Completed TROPONIN Q3H Lab 12/06/18 03:25 Completed TROPONIN Q3H Lab 12/06/18 06:30 Ordered TROPONIN Q3H Lab 12/06/18 09:30 Ordered TROPONIN Q3H Lab 12/06/18 12:30 Ordered TROPONIN Q3H Lab 12/06/18 15:30 Ordered Transfer Order Routine Transfer 12/06/18 Ordered Medication Summary Generic Name Dose Route Start Last Admin Trade Name Freq PRN Reason Stop Dose Admin Potassium Chloride 20 meq in 100 mls @ 50 mls/hr 12/06/18 03:56 12/06/18 04: 04 Potassium Chloride 20 Meq In Water 100ml IV 12/06/18 05:55 50 mls/hr STAT ONE Administration Sodium Chloride 1,000 mls @ 50 mls/hr 12/06/18 04:30 12/06/18 04:29 Sodium Chloride 0.9% 1000 Ml IV 01/05/19 04:29 50 mls/hr .Q20H RACHELLE Administration Discontinued Medications Generic Name Dose Route Start Last Admin Trade Name Freq PRN Reason Stop Dose Admin Al Hydrox/Mg Hydrox/Simethicone Confirm 12/06/18 04:10 Maalox Es 30 Ml Unit Dose Administered 12/06/18 04:11 Dose 30 ml .ROUTE .STK-MED ONE Enoxaparin Sodium 90 mg 12/06/18 04:28 12/06/18 04:31 Enoxaparin Sodium 1 mg/kg (90 mg) 12/06/18 04:29 90 mg SQ Administration STAT ONE Enoxaparin Sodium Confirm 12/06/18 04:30 Enoxaparin Sodium Administered 12/06/18 04:31 Dose 120 mg SQ .STK-MED ONE Potassium Chloride Confirm 12/06/18 03:59 Potassium Chloride 20 Meq In Water 100ml Administered 12/06/18 04:00 Dose 100 mls @ ud IV .STK-MED ONE Sodium Chloride Confirm 12/06/18 04:19 Sodium Chloride 0.9% 1000 Ml Administered 12/06/18 04:20 Dose 1,000 mls @ ud .ROUTE .STK-MED ONE Lidocaine HCl Confirm 12/06/18 04:09 Xylocaine Hcl Viscous * Administered 12/06/18 04:10 Dose 15 ml .ROUTE .STK-MED ONE Magnesium Hydroxide 45 ml 12/06/18 04:08 12/06/18 04:12 Gi Cocktail 45 Ml (Maalox/Lidocaine) PO 12/06/18 04:09 45 ml STAT ONE Administration Potassium Bicarbonate 25 meq 12/06/18 03:56 12/06/18 04:04 K-Lyte 25 Meq PO 12/06/18 03:57 25 meq STAT ONE Administration Potassium Bicarbonate Confirm 12/06/18 03:59 K-Lyte 25 Meq Administered 12/06/18 04:00 Dose 25 meq .ROUTE .STK-MED ONE Lab/Rad Data: Laboratory Result Diagrams 12/06/18 03:25 12/06/18 03:25 Laboratory Results 12/06/18 12/06/18 12/06/18 Range/Units 03:25 03:25 03:25 WBC (4.0-10.5) K/mm3 RBC (4.1-5.6) M/mm3 Hgb (12.5-18.0) gm/dl Hct (42-50) % MCV (78-100) fl MCH (26-32) pg MCHC (32-36) g/dl RDW (11.5-14.0) % Plt Count (150-450) K/mm3 MPV (6-9.5) fl Gran % (36.0-66.0) % Eos # (Auto) (0-0.5) Absolute Lymphs (auto) (1.0-4.6) Absolute Monos (auto) (0.0-1.3) Lymphocytes % (24.0-44.0) % Monocytes % (0.0-12.0) % Eosinophils % (0.00-5.0) % Basophils % (0.0-0.4) % Absolute Granulocytes (1.4-6.9) Basophils # (0-0.4) PT 13.6 H (8.83-12.87) SECONDS INR 1.17 (0.8-3.0) D-Dimer 1905 H* (215-500) ng/mL Sodium 140 (137-145) mmol/L Potassium 3.3 L (3.5-5.1) mmol/L Chloride 102 (98-107) mmol/L Carbon Dioxide 26 (22-30) mmol/L Anion Gap 14.7 (5-15) MEQ/L BUN 28 H (9-20) mg/dL Creatinine 1.49 H (0.66-1.25) mg/dL Estimated GFR 47.3 ML/MIN Glucose 122 H (74-106) mg/dL Calcium 11.3 H (8.4-10.2) mg/dL Total Bilirubin 0.80 (0.2-1.3) mg/dL AST 20 (17-59) U/L ALT 17 (0-50) U/L Alkaline Phosphatase 73 (38-126) U/L Troponin I < 0.012 (0.000-0.034) ng/mL NT-Pro-B Natriuret Pep 337 (0-1800) pg/mL Serum Total Protein 7.6 (6.3-8.2) g/dL Albumin 3.9 (3.5-5.0) g/dL 12/06/18 Range/Units 03:25 WBC 10.2 (4.0-10.5) K/mm3 RBC 3.84 L (4.1-5.6) M/mm3 Hgb 11.1 L (12.5-18.0) gm/dl Hct 34.6 L (42-50) % MCV 90.1 (78-100) fl MCH 28.9 (26-32) pg MCHC 32.1 (32-36) g/dl RDW 14.3 H (11.5-14.0) % Plt Count 238 (150-450) K/mm3 MPV 9.5 (6-9.5) fl Gran % 73.9 H (36.0-66.0) % Eos # (Auto) 0.13 (0-0.5) Absolute Lymphs (auto) 1.84 (1.0-4.6) Absolute Monos (auto) 0.66 (0.0-1.3) Lymphocytes % 18.1 L (24.0-44.0) % Monocytes % 6.5 (0.0-12.0) % Eosinophils % 1.3 (0.00-5.0) % Basophils % 0.2 (0.0-0.4) % Absolute Granulocytes 7.52 H (1.4-6.9) Basophils # 0.02 (0-0.4) PT (8.83-12.87) SECONDS INR (0.8-3.0) D-Dimer (215-500) ng/mL Sodium (137-145) mmol/L Potassium (3.5-5.1) mmol/L Chloride (98-107) mmol/L Carbon Dioxide (22-30) mmol/L Anion Gap (5-15) MEQ/L BUN (9-20) mg/dL Creatinine (0.66-1.25) mg/dL Estimated GFR ML/MIN Glucose (74-106) mg/dL Calcium (8.4-10.2) mg/dL Total Bilirubin (0.2-1.3) mg/dL AST (17-59) U/L ALT (0-50) U/L Alkaline Phosphatase (38-126) U/L Troponin I (0.000-0.034) ng/mL NT-Pro-B Natriuret Pep (0-1800) pg/mL Serum Total Protein (6.3-8.2) g/dL Albumin (3.5-5.0) g/dL - Progress Progress: improved Air Movement: good Progress Note: 12/06/18 04:00 cxr- no acute process. no changes when compared to cxr dated 11/13/18 12/06/18 04:09 denies cp but does have some heartburn. family states they are concerned about his confusion more than anything. 12/06/18 04:[address] cates, pts pcp. i reviewed hx, condition, labs, ekg and cxr results. he accepts pt for observation. will begin lovenox, recheck labs on floor. Discussed with : Beltran Counseled pt/family regarding: lab results, diagnosis, need for follow-up, rad results - Departure Departure Disposition: Observation Clinical Impression: Dyspnea, Elevated d-dimer, Hypokalemia, Renal insufficiency Condition: Stable Critical Care Time: No Referrals: CRISTINA CATES MD [Primary Care Provider] -
[2018-12-06 03:41] LABS: BASOPHIL % 0.2 % (0.0-0.4); Basophil (Absolute #) 0.02 (0-0.4); Eosinophil % 1.3 % (0.00-5.0); Eosinophil (Absolute #) 0.13 (0-0.5); Granulocyte Absolute (ANC) 7.52 (1.4-6.9); Granulocytes % 73.9 % (36.0-66.0); Hematocrit 34.6 % (42-50); Hemoglobin 11.1 gm/dl (12.5-18.0); Lymphocyte (Absolute #) 1.84 (1.0-4.6); Lymphocytes % 18.1 % (24.0-44.0); Mean Cell Volume 90.1 fl (78-100); Mean Corpuscular Hemoglobin 28.9 pg (26-32); Mean Corpuscular Hgb Concent. 32.1 g/dl (32-36); Mean Platelet Volume 9.5 fl (6-9.5); Monocyte (Absolute #) 0.66 (0.0-1.3); Monocytes % 6.5 % (0.0-12.0); Platelet Count 238 K/mm3 (150-450); Red Blood Count 3.84 M/mm3 (4.1-5.6); Red Cell Distribution Width 14.3 % (11.5-14.0); White Blood Count 10.2 K/mm3 (4.0-10.5)
[2018-12-06 03:47] LABS: ALBUMIN 3.9 g/dL (3.5-5.0); ANION GAP 14.7 MEQ/L (5-15); BILIRUBIN,TOTAL 0.8 mg/dL (0.2-1.3); Calcium 11.3 mg/dL (8.4-10.2); Creatinine 1 1.49 mg/dL (0.66-1.25); Potassium 3.3 mmol/L (3.5-5.1); Total Protein 7.6 g/dL (6.3-8.2)
[2018-12-06 03:55] LABS: INR 1.17 (0.8-3.0); PROTIME 13.6 SECONDS (8.83-12.87)
[2018-12-06] MEDS ORDERED: POTASSIUM CHLORIDE 20 mEq IN WATER 100ML 20 MEQ/100 ML BAG IV ONE (03:56)
[2018-12-06] MEDS ORDERED: K-LYTE 25 MEQ PO ONE (03:56)
[2018-12-06] MEDS ORDERED: K-LYTE 25 MEQ ONE (03:59)
[2018-12-06] MEDS ORDERED: POTASSIUM CHLORIDE 20 mEq IN WATER 100ML 100 ML IV ONE (03:59)
[2018-12-06] MEDS ORDERED: GI COCKTAIL 45 ML (Maalox/Lidocaine) PO ONE (04:08)
[2018-12-06] MEDS ORDERED: XYLOCAINE HCl Viscous ONE (04:09)
[2018-12-06] MEDS ORDERED: MAALOX ES 30 ML UNIT DOSE ONE (04:10)
[2018-12-06] MEDS ORDERED: Sodium Chloride 0.9% 1000 ML 1,000 ML ONE (04:19)
[2018-12-06] MEDS ORDERED: ENOXAPARIN SODIUM SQ ONE ×2 (04:28→04:30)
[2018-12-06] MEDS ORDERED: Sodium Chloride 0.9% 1000 ML 1,000 ML IV SCH ×2 (04:30→04:43)
[2018-12-06] MEDS ORDERED: Zofran 4 MG/2 ML VIAL IV PRN (04:43)
[2018-12-06] MEDS ORDERED: TYLENOL 325 MG PO PRN (04:43)
[2018-12-06] MEDS ORDERED: PROTONIX 40 MG IV IV SCH (04:45)
[2018-12-06] MEDS: PROTONIX 40 MG IV IV SCH (08:08)
--- NOTE | 2018-12-06 08:43 | XRAY ---
Indication: Short of breath. Comparison: November 13, 2018. Portable apical lordotic chest remains hyperinflated again with minimal right midlung fibrosis/scarring and a few incidental tiny calcified granulomas. Remaining heart and lungs unremarkable. No new/acute findings.
--- NOTE | 2018-12-06 09:32 | PCM.HP ---
History of Present Illness - Chief Complaint Chief Complaint: Elevated Ddimer, Hypokalemia History of Present Illness: is a 88 year old male pt of Dr. Hdz with PMHx CAD, AAA (2.9 cm), HTN, and esophageal stricture who was brought to ER for SOB. He was recently in the hospital for hypokalemia apparently. Pt's potassium 3.3 here. D-dimer 1905. CXR read is pending. Troponins neg x 2. Apparently his family was concerned most about his change in mental status/ increase in confusion. Pt was started on lovenox 90mg SQ q12h. Renal function was decreased with BUN 28 and Cr 1.49, for eGFR 47.3 (usually eGFR in 50s->60). This morning he tells me that he was having epigastric pain. States not SOB this morning. Not on O2. He is oriented to place, but says the month is, "I don't know - February" and the year is 2018. He tells me he has been sleeping all day and up at night with the belly pain. Thinks the epigastric pain, characterized as burning, was due to drinking more coffee than usual lately. - Review of Systems All Other Systems: Unable due to condition (disorientation) Medications & Allergies Home Medications: Home Medication List Indapamide 2.5 mg PO DAILY 12/12/14 [History Confirmed 12/06/18] Metoprolol Tartrate 25 mg PO DAILY 12/12/14 [History Confirmed 12/06/18] Gabapentin 300 mg PO TID 11/13/18 [History Confirmed 12/06/18] Allergies/Adverse Reactions: Allergies Allergy/AdvReac Type Severity Reaction Status Date / Time No Known Drug Allergies Allergy Verified 12/06/18 03:15 - Past Medical History Past Medical History: Yes Neurological History: No Pertinent History ENT History: No Pertinent History Cardiac History: Hypertension Respiratory History: No Pertinent History Endocrine Medical History: No Pertinent History Musculoskelatal History: Arthritis, Degenerative Disk Disease GI Medical History: No Pertinent History History: No Pertinent History Pyscho-Social History: No Pertinent History Male Reproductive Disorders: No Pertinent History Comment: BACK PAIN, Abdominal aortic aneurysm. hypokalemia - Past Surgical History Past Surgical History: Yes Neuro Surgical History: No Pertinent History Cardiac History: No Pertinent History Respiratory Surgery: No Pertinent History GI Surgical History: Cholecystectomy, Other Genitourinary Surgical Hx: No Pertinent History Musculskeletal Surgical Hx: Orthopedic Surgery Male Surgical History: No Pertinent History Other Surgical History: back surgery, EGD w/ dilitation, bilateral knee surgeries-repairs on minicus, VEDA - Social History Smoking Status: Former smoker Exposure to second hand smoke: No Alcohol: None Drug Use: none - Physical Exam Vital Signs: Vital Signs - 24 hr Temp Pulse Resp BP Pulse Ox 12/06/18 07:21 98.3 F 67 17 157/70 94 L 12/06/18 05:52 99 F 68 21 152/65 93 L 12/06/18 05:22 99 F 68 21 152/65 93 L 12/06/18 04:43 93 L 12/06/18 04:34 97 12/06/18 04:13 65 22 115/73 93 L 12/06/18 03:25 97 12/06/18 02:57 22 97 12/06/18 02:55 97.8 F 76 22 159/74 96 General Appearance: no apparent distress, alert Neurologic Exam: cooperative, normal mood/affect, disoriented Eye Exam: eyes nml inspection Ears, Nose, Throat Exam: moist mucous membranes Neck Exam: normal inspection, non-tender, No lymphadenopathy Respiratory Exam: normal breath sounds, diminished breath sounds, No crackles/ rales, No rhonchi, No wheezing Cardiovascular Exam: regular rate/rhythm, normal heart sounds, No murmur Gastrointestinal/Abdomen Exam: soft, normal bowel sounds, No tenderness, No distention, No mass, No guarding, No rebound Back Exam: normal inspection, No rash Extremity Exam: normal inspection, No pedal edema, No swelling Skin Exam: normal color, warm, dry, No rash Results - Labs Lab/Micro Results: Lab Results-Last 24 Hours 12/06/18 12/06/18 12/06/18 Range/Units 03:25 03:25 03:25 WBC 10.2 (4.0-10.5) K/mm3 RBC 3.84 L (4.1-5.6) M/mm3 Hgb 11.1 L (12.5-18.0) gm/dl Hct 34.6 L (42-50) % MCV 90.1 (78-100) fl MCH 28.9 (26-32) pg MCHC 32.1 (32-36) g/dl RDW 14.3 H (11.5-14.0) % Plt Count 238 (150-450) K/mm3 MPV 9.5 (6-9.5) fl Gran % 73.9 H (36.0-66.0) % Eos # (Auto) 0.13 (0-0.5) Absolute Lymphs (auto) 1.84 (1.0-4.6) Absolute Monos (auto) 0.66 (0.0-1.3) Lymphocytes % 18.1 L (24.0-44.0) % Monocytes % 6.5 (0.0-12.0) % Eosinophils % 1.3 (0.00-5.0) % Basophils % 0.2 (0.0-0.4) % Absolute Granulocytes 7.52 H (1.4-6.9) Basophils # 0.02 (0-0.4) PT 13.6 H (8.83-12.87) SECONDS INR 1.17 (0.8-3.0) D-Dimer 1905 H* (215-500) ng/mL Sodium 140 (137-145) mmol/L Potassium 3.3 L (3.5-5.1) mmol/L Chloride 102 (98-107) mmol/L Carbon Dioxide 26 (22-30) mmol/L Anion Gap 14.7 (5-15) MEQ/L BUN 28 H (9-20) mg/dL Creatinine 1.49 H (0.66-1.25) mg/dL Estimated GFR 47.3 ML/MIN Glucose 122 H (74-106) mg/dL Calcium 11.3 H (8.4-10.2) mg/dL Total Bilirubin 0.80 (0.2-1.3) mg/dL AST 20 (17-59) U/L ALT 17 (0-50) U/L Alkaline Phosphatase 73 (38-126) U/L Troponin I (0.000-0.034) ng/mL NT-Pro-B Natriuret Pep 337 (0-1800) pg/mL Serum Total Protein 7.6 (6.3-8.2) g/dL Albumin 3.9 (3.5-5.0) g/dL 12/06/18 12/06/18 12/06/18 Range/Units 03:25 06:30 08:36 WBC (4.0-10.5) K/mm3 RBC (4.1-5.6) M/mm3 Hgb (12.5-18.0) gm/dl Hct (42-50) % MCV (78-100) fl MCH (26-32) pg MCHC (32-36) g/dl RDW (11.5-14.0) % Plt Count (150-450) K/mm3 MPV (6-9.5) fl Gran % (36.0-66.0) % Eos # (Auto) (0-0.5) Absolute Lymphs (auto) (1.0-4.6) Absolute Monos (auto) (0.0-1.3) Lymphocytes % (24.0-44.0) % Monocytes % (0.0-12.0) % Eosinophils % (0.00-5.0) % Basophils % (0.0-0.4) % Absolute Granulocytes (1.4-6.9) Basophils # (0-0.4) PT (8.83-12.87) SECONDS INR (0.8-3.0) D-Dimer (215-500) ng/mL Sodium (137-145) mmol/L Potassium (3.5-5.1) mmol/L Chloride (98-107) mmol/L Carbon Dioxide (22-30) mmol/L Anion Gap (5-15) MEQ/L BUN (9-20) mg/dL Creatinine (0.66-1.25) mg/dL Estimated GFR ML/MIN Glucose (74-106) mg/dL Calcium (8.4-10.2) mg/dL Total Bilirubin (0.2-1.3) mg/dL AST (17-59) U/L ALT (0-50) U/L Alkaline Phosphatase (38-126) U/L Troponin I < 0.012 < 0.012 < 0.012 (0.000-0.034) ng/mL NT-Pro-B Natriuret Pep (0-1800) pg/mL Serum Total Protein (6.3-8.2) g/dL Albumin (3.5-5.0) g/dL 12/06/18 Range/Units 08:36 WBC (4.0-10.5) K/mm3 RBC (4.1-5.6) M/mm3 Hgb (12.5-18.0) gm/dl Hct (42-50) % MCV (78-100) fl MCH (26-32) pg MCHC (32-36) g/dl RDW (11.5-14.0) % Plt Count (150-450) K/mm3 MPV (6-9.5) fl Gran % (36.0-66.0) % Eos # (Auto) (0-0.5) Absolute Lymphs (auto) (1.0-4.6) Absolute Monos (auto) (0.0-1.3) Lymphocytes % (24.0-44.0) % Monocytes % (0.0-12.0) % Eosinophils % (0.00-5.0) % Basophils % (0.0-0.4) % Absolute Granulocytes (1.4-6.9) Basophils # (0-0.4) PT (8.83-12.87) SECONDS INR (0.8-3.0) D-Dimer (215-500) ng/mL Sodium (137-145) mmol/L Potassium 3.5 (3.5-5.1) mmol/L Chloride (98-107) mmol/L Carbon Dioxide (22-30) mmol/L Anion Gap (5-15) MEQ/L BUN (9-20) mg/dL Creatinine (0.66-1.25) mg/dL Estimated GFR ML/MIN Glucose (74-106) mg/dL Calcium (8.4-10.2) mg/dL Total Bilirubin (0.2-1.3) mg/dL AST (17-59) U/L ALT (0-50) U/L Alkaline Phosphatase (38-126) U/L Troponin I (0.000-0.034) ng/mL NT-Pro-B Natriuret Pep (0-1800) pg/mL Serum Total Protein (6.3-8.2) g/dL Albumin (3.5-5.0) g/dL - Radiology Impressions Radiology Exams & Impressions: Radiology Procedures Category Date Time Status CHEST 1 VIEW (PORTABLE) Stat Exams 12/06/18 03:24 Completed PULMONARY PERF VENTILATION [NUCMED] Urgent Exams 12/06/18 09:25 Ordered VENOUS BILATERAL EXTREMITY [US] Urgent Exams 12/06/18 Ordered - Other Procedures and Tests Respiratory Therapy 12/06/18 04:43 EKG REPEAT IN AM Assessment/Plan (1) Altered mental status Current Visit: Yes Status: Acute Qualifiers: Altered mental status type: disorientation Qualified Code(s): R41.0 - Disorientation, unspecified Assessment & Plan: Nurse to check with family, when they come in, to see if pt is at his baseline or not. Code(s): R41.82 - ALTERED MENTAL STATUS, UNSPECIFIED (2) Dyspnea Current Visit: Yes Status: Resolved Qualifiers: Dyspnea type: shortness of breath Qualified Code(s): R06.02 - Shortness of breath; R06.00 - Dyspnea, unspecified; R06.01 - Orthopnea Assessment & Plan: Not currently present. However, with his elevated d-dimer and c/o dyspnea on presentation, will check VQ scan. On lovenox therapeutic dose. Will also check bilat LE dopplers. Code(s): R06.00 - DYSPNEA, UNSPECIFIED (3) Elevated d-dimer Current Visit: Yes Status: Acute Code(s): R79.89 - OTHER SPECIFIED ABNORMAL FINDINGS OF BLOOD CHEMISTRY (4) Renal insufficiency Current Visit: Yes Status: Acute Assessment & Plan: recheck in a.m.
[2018-12-06] MEDS: NEURONTIN 300 MG PO SCH ×3 (10:27→22:02)
[2018-12-06] MEDS: Lopressor 25MG Tab PO SCH (10:27)
[2018-12-06] MEDS: INDAPAMIDE PO SCH (10:43)
--- NOTE | 2018-12-06 11:15 | XRAY ---
Indication: Elevated d-dimer. Two-dimensional sonogram and color Doppler imaging of the major venous vessels of the left and right leg was performed. Comparison: None No thrombus seen in the examined deep venous vessels of the left and right leg including greater saphenous vein. Veins demonstrate normal compressibility. Venous waveforms are normal with and without augmentation. Impression: Left and right legs negative for DVT.
[2018-12-06] MEDS: ENOXAPARIN SODIUM SQ SCH (17:35)
[2018-12-06] MEDS ORDERED: ENOXAPARIN SODIUM SQ SCH (18:00)
[2018-12-06 18:38] LABS: Folate (Folic Acid) 10.5 ng/mL (2.76 - >20)
[2018-12-07 05:55] LABS: BASOPHIL % 0.4 % (0.0-0.4); Basophil (Absolute #) 0.03 (0-0.4); Eosinophil % 4.8 % (0.00-5.0); Eosinophil (Absolute #) 0.37 (0-0.5); Granulocyte Absolute (ANC) 3.87 (1.4-6.9); Granulocytes % 50.2 % (36.0-66.0); Hemoglobin 9.5 gm/dl (12.5-18.0); Lymphocyte (Absolute #) 2.77 (1.0-4.6); Mean Cell Volume 91.5 fl (78-100); Mean Corpuscular Hgb Concent. 31.7 g/dl (32-36); Mean Platelet Volume 9.5 fl (6-9.5); Monocyte (Absolute #) 0.66 (0.0-1.3); Monocytes % 8.6 % (0.0-12.0); Platelet Count 196 K/mm3 (150-450); Red Blood Count 3.28 M/mm3 (4.1-5.6); Red Cell Distribution Width 14.4 % (11.5-14.0); White Blood Count 7.7 K/mm3 (4.0-10.5)
[2018-12-07 06:00] LABS: Mean Corpuscular Hemoglobin 28.9 pg (26-32)
[2018-12-07 06:16] LABS: ALBUMIN 3.2 g/dL (3.5-5.0); ANION GAP 13.2 MEQ/L (5-15); BILIRUBIN,TOTAL 0.4 mg/dL (0.2-1.3); Calcium 9.5 mg/dL (8.4-10.2); Creatinine 1 1.5 mg/dL (0.66-1.25); Potassium 3.1 mmol/L (3.5-5.1); Total Protein 6.3 g/dL (6.3-8.2)
[2018-12-07] MEDS: ENOXAPARIN SODIUM SQ SCH (06:34)
--- NOTE | 2018-12-07 08:56 | PCM.NOTE ---
Date and Time: 12/07/18 0852 Subjective Assessment: patient feeling better today, he denies any shortness of breath or chest pain since admission, sats are good on room air. Objective Exam General Appearance: no apparent distress, alert Skin Exam: normal color, warm, dry Respiratory Exam: normal breath sounds, lungs clear, No respiratory distress Cardiovascular Exam: regular rate/rhythm, normal heart sounds Gastrointestinal/Abdomen Exam: soft, No tenderness, No mass Extremity Exam: normal inspection, normal range of motion OBJECTIVE DATA Vital Signs: Vital Signs - 24 hr Temp Pulse Resp BP Pulse Ox 12/07/18 08:00 18 12/07/18 07:31 98.2 F 51 L 18 111/55 95 12/07/18 07:24 92 L 12/07/18 04:00 18 12/07/18 03:49 97.4 F 52 L 20 116/56 93 L 12/06/18 23:53 97.7 F 52 L 20 121/58 93 L 12/06/18 20:00 16 12/06/18 19:57 97.9 F 56 L 16 94/50 96 12/06/18 19:26 94 L 12/06/18 16:00 98.4 F 58 L 18 115/55 93 L 12/06/18 12:00 98.3 F 59 L 18 102/55 95 Pain Assessment - Last Documented Pain Intensity 0 Pain Scale Used 0-10 Pain Scale Intake and Output: Intake & Output 12/04/18 12/05/18 12/06/18 12/07/18 11:59 11:59 11:59 11:59 Intake Total 480 1240 Output Total 280 1200 Balance 200 40 Weight 99.2 kg 99 kg Lab Results: Lab Results-Last 24 Hours 12/06/18 12/06/18 12/06/18 Range/Units 08:36 12:32 16:03 WBC (4.0-10.5) K/mm3 RBC (4.1-5.6) M/mm3 Hgb (12.5-18.0) gm/dl Hct (42-50) % MCV (78-100) fl MCH (26-32) pg MCHC (32-36) g/dl RDW (11.5-14.0) % Plt Count (150-450) K/mm3 MPV (6-9.5) fl Gran % (36.0-66.0) % Eos # (Auto) (0-0.5) Absolute Lymphs (auto) (1.0-4.6) Absolute Monos (auto) (0.0-1.3) Lymphocytes % (24.0-44.0) % Monocytes % (0.0-12.0) % Eosinophils % (0.00-5.0) % Basophils % (0.0-0.4) % Absolute Granulocytes (1.4-6.9) Basophils # (0-0.4) Sodium (137-145) mmol/L Potassium (3.5-5.1) mmol/L Chloride (98-107) mmol/L Carbon Dioxide (22-30) mmol/L Anion Gap (5-15) MEQ/L BUN (9-20) mg/dL Creatinine (0.66-1.25) mg/dL Estimated GFR ML/MIN Glucose (74-106) mg/dL Calcium (8.4-10.2) mg/dL Total Bilirubin (0.2-1.3) mg/dL AST (17-59) U/L ALT (0-50) U/L Alkaline Phosphatase (38-126) U/L Ammonia (9-30) umol/L Troponin I < 0.012 < 0.012 < 0.012 (0.000-0.034) ng/mL Serum Total Protein (6.3-8.2) g/dL Albumin (3.5-5.0) g/dL Vitamin B12 (239-931) pg/mL Folic Acid (2.76 - >20) ng/mL TSH 3rd Generation (0.47-4.68) mIU/L 12/06/18 12/06/18 12/06/18 Range/Units 17:12 17:12 17:12 WBC (4.0-10.5) K/mm3 RBC (4.1-5.6) M/mm3 Hgb (12.5-18.0) gm/dl Hct (42-50) % MCV (78-100) fl MCH (26-32) pg MCHC (32-36) g/dl RDW (11.5-14.0) % Plt Count (150-450) K/mm3 MPV (6-9.5) fl Gran % (36.0-66.0) % Eos # (Auto) (0-0.5) Absolute Lymphs (auto) (1.0-4.6) Absolute Monos (auto) (0.0-1.3) Lymphocytes % (24.0-44.0) % Monocytes % (0.0-12.0) % Eosinophils % (0.00-5.0) % Basophils % (0.0-0.4) % Absolute Granulocytes (1.4-6.9) Basophils # (0-0.4) Sodium (137-145) mmol/L Potassium (3.5-5.1) mmol/L Chloride (98-107) mmol/L Carbon Dioxide (22-30) mmol/L Anion Gap (5-15) MEQ/L BUN (9-20) mg/dL Creatinine (0.66-1.25) mg/dL Estimated GFR ML/MIN Glucose (74-106) mg/dL Calcium (8.4-10.2) mg/dL Total Bilirubin (0.2-1.3) mg/dL AST (17-59) U/L ALT (0-50) U/L Alkaline Phosphatase (38-126) U/L Ammonia < 9 L (9-30) umol/L Troponin I (0.000-0.034) ng/mL Serum Total Protein (6.3-8.2) g/dL Albumin (3.5-5.0) g/dL Vitamin B12 300 (239-931) pg/mL Folic Acid 10.5 (2.76 - >20) ng/mL TSH 3rd Generation 1.180 (0.47-4.68) mIU/L 12/07/18 12/07/18 Range/Units 05:12 05:12 WBC 7.7 (4.0-10.5) K/mm3 RBC 3.28 L (4.1-5.6) M/mm3 Hgb 9.5 L (12.5-18.0) gm/dl Hct 30.0 L (42-50) % MCV 91.5 (78-100) fl MCH 28.9 (26-32) pg MCHC 31.7 L (32-36) g/dl RDW 14.4 H (11.5-14.0) % Plt Count 196 (150-450) K/mm3 MPV 9.5 (6-9.5) fl Gran % 50.2 (36.0-66.0) % Eos # (Auto) 0.37 (0-0.5) Absolute Lymphs (auto) 2.77 (1.0-4.6) Absolute Monos (auto) 0.66 (0.0-1.3) Lymphocytes % 36.0 (24.0-44.0) % Monocytes % 8.6 (0.0-12.0) % Eosinophils % 4.8 (0.00-5.0) % Basophils % 0.4 (0.0-0.4) % Absolute Granulocytes 3.87 (1.4-6.9) Basophils # 0.03 (0-0.4) Sodium 142 (137-145) mmol/L Potassium 3.1 L (3.5-5.1) mmol/L Chloride 103 (98-107) mmol/L Carbon Dioxide 28 (22-30) mmol/L Anion Gap 13.2 (5-15) MEQ/L BUN 29 H (9-20) mg/dL Creatinine 1.50 H (0.66-1.25) mg/dL Estimated GFR 46.9 ML/MIN Glucose 81 (74-106) mg/dL Calcium 9.5 D (8.4-10.2) mg/dL Total Bilirubin 0.40 (0.2-1.3) mg/dL AST 17 (17-59) U/L ALT 13 (0-50) U/L Alkaline Phosphatase 53 (38-126) U/L Ammonia (9-30) umol/L Troponin I (0.000-0.034) ng/mL Serum Total Protein 6.3 (6.3-8.2) g/dL Albumin 3.2 L (3.5-5.0) g/dL Vitamin B12 (239-931) pg/mL Folic Acid (2.76 - >20) ng/mL TSH 3rd Generation (0.47-4.68) mIU/L Radiology Exams: Radiology Procedures Category Date Time Status CHEST 1 VIEW (PORTABLE) Stat Exams 12/06/18 03:24 Completed PULMONARY PERF VENTILATION [NUCMED] Urgent Exams 12/08/18 09:25 Ordered VENOUS BILATERAL EXTREMITY [US] Urgent Exams 12/06/18 11:00 Completed Assessment/Plan (1) Altered mental status Current Visit: Yes Status: Acute Qualifiers: Altered mental status type: disorientation Qualified Code(s): R41.0 - Disorientation, unspecified Assessment & Plan: b12 and folate are normal, nothing acute on chest xray. plan to check u/a at this time. Code(s): R41.82 - ALTERED MENTAL STATUS, UNSPECIFIED (2) Hypokalemia Current Visit: Yes Status: Acute Assessment & Plan: replacing at this time Code(s): E87.6 - HYPOKALEMIA (3) Elevated d-dimer Current Visit: Yes Status: Acute Assessment & Plan: no symptoms at this time, no chest pain, shortness of breath was short lived. he feels great and doesn't see the need for any further testing and frankly I agree, will cancel vq and therapeutic lovenox. he agrees to cancelling and understands possibility of missing embolus Code(s): R79.89 - OTHER SPECIFIED ABNORMAL FINDINGS OF BLOOD CHEMISTRY
[2018-12-07] MEDS: Klor Con 10 MEQ PO SCH ×2 (09:21→22:59)
[2018-12-07] MEDS: INDAPAMIDE PO SCH (09:21)
[2018-12-07] MEDS: NEURONTIN 300 MG PO SCH ×3 (09:21→22:59)
[2018-12-07] MEDS: Lopressor 25MG Tab PO SCH (09:21)
[2018-12-07] MEDS: PROTONIX 40 MG IV IV SCH (09:21)
[2018-12-07] MEDS: Sodium Chloride 0.9% W/ 20 mEq KCl/LITER 1,000 ML IV SCH (18:32)
[2018-12-07 22:07] LABS: Appearance CLEAR (CLEAR); Bilirubin NEGATIVE (NEGATIVE); Blood NEGATIVE Ery/ul (0-5); Glucose NEGATIVE (NEGATIVE); Ketones NEGATIVE (NEGATIVE); Leukocyte Esterase NEGATIVE (NEGATIVE); Mucus SLIGHT /HPF (NEGATIVE); Nitrite NEGATIVE (NEGATIVE); Protein,Urine Dip NEGATIVE (Negative); Specific Gravity 1.016 (1.005-1.025); Urobilinogen NEGATIVE mg/dL (0-1); WBC 0-2 /HPF (0-5)
[2018-12-07 22:11] LABS: Bacteria NONE SEEN /HPF (NEGATIVE)
[2018-12-08 07:24] VITALS: BP 132/78; PULSE 80; O2SAT 96
[2018-12-08] MEDS: Sodium Chloride 0.9% W/ 20 mEq KCl/LITER 1,000 ML IV SCH (07:49)
--- NOTE | 2018-12-08 07:58 | PCM.DS ---
Discharge Summary Date of Admission: 12/06/18 04:41 Admitting Physician: CRISTINA HORTA Primary Care Provider: CRISTINA HORTA Allergies Allergies No Known Drug Allergies Allergy (Verified 12/06/18 03:15) Hospital Summary - Hospital Course Hospital Course: patient was admitted with shortness of breath, was very shortlived and resolved. he has been complaint free and sats are good on room air. had a minimally decreased potassium, resolved with fluids. doing great at this time - Vitals & Intake/Output Vital Signs: Vital Signs Temperature 97.7 F 12/08/18 07:23 Pulse Rate 80 12/08/18 07:23 Respiratory Rate 20 12/08/18 07:44 Blood Pressure 132/78 12/08/18 07:23 O2 Sat by Pulse Oximetry 96 12/08/18 07:23 Intake & Output: Intake & Output 12/05/18 12/06/18 12/07/18 12/08/18 11:59 11:59 11:59 11:59 Intake Total 480 1720 1200 Output Total 280 1200 Balance 180 342 8479 Weight 99.2 kg 99 kg 99.2 kg - Lab Result Diagrams: 12/07/18 05:12 12/07/18 05:12 Lab Results-Last 24 Hrs: Lab Results-Last 24 Hours 12/07/18 Range/Units 21:40 Urine Color YELLOW (YELLOW) Urine Appearance CLEAR (CLEAR) Urine pH 5.0 (5-6) Ur Specific Trail 1.016 (1.005-1.025) Urine Protein NEGATIVE (Negative) Urine Ketones NEGATIVE (NEGATIVE) Urine Blood NEGATIVE (0-5) Sanjay/ul Urine Nitrite NEGATIVE (NEGATIVE) Urine Bilirubin NEGATIVE (NEGATIVE) Urine Urobilinogen NEGATIVE (0-1) mg/dL Ur Leukocyte Esterase NEGATIVE (NEGATIVE) Urine WBC (Auto) 0-2 (0-5) /HPF Urine RBC (Auto) NONE (0-2) /HPF U Epithel Cells (Auto) NONE (FEW) /HPF Urine Bacteria (Auto) NONE SEEN (NEGATIVE) /HPF Urine Mucus (Auto) SLIGHT (NEGATIVE) /HPF Urine Culture Reflexed NO (NO) Urine Glucose NEGATIVE (NEGATIVE) mg/dL - Radiology Exams Ordered Rad Exams-Entire Visit: Radiology Procedures Category Date Time Status VENOUS BILATERAL EXTREMITY [US] Urgent Exams 12/06/18 11:00 Completed - Procedures and Test Procedures and Tests throughout Hospitalization: Therapy Orders & Screens 12/06/18 04:43 EKG Comment: 12/06/18 14:19 PT Eval & Treat ( Order) Reason for Eval:: WEAKNESS Diagnosis: Elevated Ddimer, Hypokalemia Discharge Exam General Appearance: no apparent distress, alert Skin Exam: normal color, warm, dry Respiratory Exam: normal breath sounds, lungs clear, No respiratory distress Cardiovascular Exam: regular rate/rhythm, normal heart sounds Gastrointestinal/Abdomen Exam: soft, No tenderness, No mass Extremity Exam: normal inspection, normal range of motion Final Diagnosis/Problem List - Final Discharge Diagnosis/Problem (1) Altered mental status Current Visit: Yes Status: Acute Assessment & Plan: resolved Code(s): R41.82 - ALTERED MENTAL STATUS, UNSPECIFIED (2) Hypokalemia Current Visit: Yes Status: Acute Code(s): E87.6 - HYPOKALEMIA (3) Elevated d-dimer Current Visit: Yes Status: Acute Code(s): R79.89 - OTHER SPECIFIED ABNORMAL FINDINGS OF BLOOD CHEMISTRY - Discharge Disposition: Home, Self-Care Condition: Stable Prescriptions: New Potassium Chloride 10 Meq Tab* [Klor Con 10 MEQ] 10 meq PO DAILY #30 tab Continue Metoprolol Tartrate 25 mg PO DAILY Indapamide 2.5 mg PO DAILY Gabapentin 300 mg PO TID Instructions: Hypokalemia (DC) Follow up with: CRISTINA HORTA MD [Primary Care Provider] - 1 Week
[2018-12-08] MEDS ORDERED: ENOXAPARIN SODIUM SQ SCH (10:00)
[2018-12-09 16:56] LABS: RPR Screen Non Reactive (Non Reactive)
== END 2018-12-08 08:20 | disposition home or self-care (01) ==
LOC: ED 02:54 → MED SURG 04:41
PROVIDERS: ADMIT Family Medicine; ATTEND Family Medicine
DX: R41.82 Altered mental status, unspecified (principal); R06.00 Dyspnea, unspecified; E87.6 Hypokalemia; R79.1 Abnormal coagulation profile; Z79.899 Other long term (current) drug therapy; I71.4 Abdominal aortic aneurysm, without rupture; I10 Essential (primary) hypertension; R10.13 Epigastric pain; N28.9 Disorder of kidney and ureter, unspecified
CPT/HCPCS: 36000; 36415; 71045; 80053; 81001; 82140; 82607; 82746; 83880; 84132; 84443; 84484; 85025; 85379; 85610; 86592; 86593; 86780; 93005; 93041; 93268; 93970; 94760; 96360; 96365; 96372; 99285; G0378; J1650; J3480; A9270-GY

== ENCOUNTER 2018-12-14 13:03 | Day surgery (SDC) | payer MEDICARE ==
[2018-12-14] MEDS ORDERED: Sodium Chloride 0.9(Preservative Free) 10 ML IJ ONE (13:04)
[2018-12-14] MEDS ORDERED: Depo-Medrol 40 MG/ML IM ONE (13:04)
[2018-12-14] MEDS ORDERED: Xylocaine 1% Vial 30 ML PF IJ ONE (13:04)
--- NOTE | 2018-12-14 16:43 | XRAY ---
Indication: L5-S1 VEDA. Intraoperative fluoroscopy was provided for 14 seconds. 2 digital spot images submitted for interpretation demonstrates midline posterior needle tip just posterior to the lumbosacral interspace. Correlate with intraoperative findings/report.
--- NOTE | 2018-12-14 16:47 | XRAY ---
14 seconds of fluoroscopy was used in surgery for L5-S1 VEDA.
== END 2018-12-14 15:11 | disposition home or self-care (01) ==
LOC: SDC-PAIN 13:03
PROVIDERS: ATTEND Psychiatry & Neurology Pain Medicine
DX: M54.16 Radiculopathy, lumbar region (principal); M47.9 Spondylosis, unspecified; I10 Essential (primary) hypertension; Z79.899 Other long term (current) drug therapy
CPT/HCPCS: 62323; 72100; 77003; J1030; J2001; Q9966

== ENCOUNTER 2019-07-09 10:02 | Observation (INO) | payer MEDICARE ==
--- NOTE | 2019-07-09 10:19 | ERPHSYRPT ---
- History of Present Illness Time Seen by Provider: 07/09/19 10:10 Source: patient, family Exam Limitations: no limitations Physician History: 88 y/o left handed white male presents with chronic right hand pain that shoots proximally. present for over a year. pt and great nephew have noticed redness and swelling back of right hand for last 2 days. pt did start accupuncture tx 2 weeks ago. pt not eating or drinking well last couple of days. Occurred: days ago (2) Method of Injury: other (unknown chronic injury. no acute trauma. however, accupuncture tx 2 weeks ago. ) Quality: constant, aching Severity of Pain-Max: moderate Severity of Pain-Current: mild Extremities Pain Location: hand: right (dorsal aspect) Modifying Factors: Improves With: movement Associated Symptoms: other (decreased appetite) Allergies/Adverse Reactions: No Known Drug Allergies Allergy (Verified 07/09/19 10:09) Home Medications: Indapamide 2.5 mg PO DAILY 12/12/14 [History] Metoprolol Tartrate 25 mg PO DAILY 12/12/14 [History] Gabapentin 300 mg PO TID 11/13/18 [History] Glucosam/Chondr/Collagn/Hyalur [Glucosamine & Chondroitin Cap] 1 each PO DAILY 07/05/19 [History] [place]-3/Dha/Epa/Fish Oil [[place] 3 500 Softgel] 1 each PO DAILY 07/05/19 [History ] Hx Tetanus, Diphtheria Vaccination/Date Given: No Hx Influenza Vaccination/Date Given: Yes Hx Pneumococcal Vaccination/Date Given: Yes - Review of Systems Constitutional: Malaise Eyes: No Symptoms Ears, Nose, & Throat: No Symptoms Respiratory: No Symptoms Cardiac: No Symptoms Abdominal/Gastrointestinal: Appetite Changes Genitourinary Symptoms: No Symptoms Musculoskeletal: Other (right hand pain) Skin: Cellulitis (dorsal aspect) Neurological: No Symptoms Psychological: No Symptoms Endocrine: No Symptoms Hematologic/Lymphatic: No Symptoms Immunological/Allergic: No Symptoms All Other Systems: Reviewed and Negative - Past Medical History Pertinent Past Medical History: Yes Neurological History: No Pertinent History ENT History: No Pertinent History Cardiac History: Hypertension Respiratory History: No Pertinent History Endocrine Medical History: No Pertinent History Musculoskeletal History: Arthritis, Degenerative Disk Disease GI Medical History: No Pertinent History History: No Pertinent History Psycho-Social History: No Pertinent History Male Reproductive Disorders: No Pertinent History Other Medical History: BACK PAIN, Abdominal aortic aneurysm. hypokalemia - Past Surgical History Past Surgical History: Yes Neuro Surgical History: No Pertinent History Cardiac: No Pertinent History Respiratory: No Pertinent History Gastrointestinal: Cholecystectomy, Other Genitourinary: No Pertinent History Musculoskeletal: Orthopedic Surgery Male Surgical History: No Pertinent History Other Surgical History: back surgery, EGD w/ dilitation, bilateral knee surgeries-repairs on minicus, VEDA - Social History Smoking Status: Former smoker How long have you smoked: 65 years Exposure to second hand smoke: No Drug Use: none Patient Lives Alone: No - Nursing Vital Signs Nursing Vital Signs: Initial Vital Signs Temperature 97.9 F 07/09/19 10:09 Pulse Rate 86 07/09/19 10:09 Respiratory Rate 18 07/09/19 10:09 Blood Pressure 153/88 07/09/19 10:09 O2 Sat by Pulse Oximetry 97 07/09/19 10:09 Pain Scale Pain Intensity 10 - Physical Exam General Appearance: no apparent distress, alert, anxiety Eyes, Ears, Nose, Throat Exam: normal ENT inspection, moist mucous membranes Neck Exam: normal inspection, non-tender, supple, full range of motion Cardiovascular/Respiratory Exam: chest non-tender Abdominal Exam: non-tender Back Exam: normal inspection, normal range of motion, No CVA tenderness, No vertebral tenderness Shoulder Exam: normal inspection, non-tender, no evidence of injury, normal ROM Elbow/Forearm Exam: normal inspection, non-tender, no evidence of injury, normal ROM Wrist Exam: normal inspection, non-tender, no evidence of injury, normal ROM Hand Exam: no evidence of injury, normal ROM, soft tissue tenderness (dorsally right hand), swelling (mild dorsal aspect right hand) Neuro/Tendon Exam: normal sensation, normal motor functions, normal tendon functions Mental Status Exam: alert, oriented x 3, cooperative Skin Exam: other (see above) SpO2 Interpretation: normal O2 Delivery: Room Air - Course Nursing assessment & vital signs reviewed: Yes Ordered Tests: Active Orders 24 hr Category Date Time Status IV Insertion STAT Care 07/09/19 10:19 Active HAND (MINIMUM 3 VIEWS) Stat Exams 07/09/19 10:45 Taken BLOOD CULTURE Stat Lab 07/09/19 10:38 Received BMP Stat Lab 07/09/19 10:25 Completed CBC W DIFF Stat Lab 07/09/19 10:25 Completed Lactic Acid Stat Lab 07/09/19 10:37 Results Transfer Order Routine Transfer 07/09/19 Ordered Medication Summary Generic Name Dose Route Start Last Admin Trade Name Anastasiya PRN Reason Stop Dose Admin Ceftriaxone Sodium/Dextrose 1 g in 50 mls @ 100 mls/hr 07/09/19 10:55 11:21 Rocephin 1 Gm-D5w 50 Ml Bag IV 07/09/19 11:24 100 mls/hr STAT STA 100 mls/hr Administration Discontinued Medications Generic Name Dose Route Start Last Admin Trade Name Anastasiya PRN Reason Stop Dose Admin Sodium Chloride 500 mls @ 500 mls/hr 07/09/19 10:21 07/09/19 10:27 Sodium Chloride 0.9% 500 Ml IV 07/09/19 11:20 500 mls/hr .Q1H ONE Administration Sodium Chloride Confirm 07/09/19 10:26 Sodium Chloride 0.9% 500 Ml Administered 07/09/19 10:27 Dose 500 mls @ ud IV .STK-MED ONE Lab/Rad Data: Laboratory Result Diagrams 07/09/19 10:25 07/09/19 10:25 Laboratory Results 07/09/19 07/09/19 07/09/19 Range/Units 10:37 10:25 10:25 WBC 9.7 (4.0-10.5) K/mm3 RBC 3.94 L (4.1-5.6) M/mm3 Hgb 11.3 L (12.5-18.0) gm/dl Hct 34.6 L (42-50) % MCV 87.8 (78-100) fl MCH 28.6 (26-32) pg MCHC 32.7 (32-36) g/dl RDW 14.1 H (11.5-14.0) % Plt Count 194 (150-450) K/mm3 MPV 9.7 H (6-9.5) fl Gran % 76.5 H (36.0-66.0) % Eos # (Auto) 0.20 (0-0.5) Absolute Lymphs (auto) 1.30 (1.0-4.6) Absolute Monos (auto) 0.75 (0.0-1.3) Lymphocytes % 13.4 L (24.0-44.0) % Monocytes % 7.8 (0.0-12.0) % Eosinophils % 2.1 (0.00-5.0) % Basophils % 0.2 (0.0-0.4) % Absolute Granulocytes 7.40 H (1.4-6.9) Basophils # 0.02 (0-0.4) Sodium 139 (137-145) mmol/L Potassium 2.5 L* (3.5-5.1) mmol/L Chloride 96 L (98-107) mmol/L Carbon Dioxide 28 (22-30) mmol/L Anion Gap 18.0 H (5-15) MEQ/L BUN 21 H (9-20) mg/dL Creatinine 1.18 (0.66-1.25) mg/dL Estimated GFR > 60.0 ML/MIN Glucose 97 (74-106) mg/dL Lactic Acid 1.9 (0.4-2.0) Calcium 9.5 (8.4-10.2) mg/dL - Progress Progress: improved Progress Note: 07/09/19 11:15 xray right hand-no acute fx or dislocation 07/09/19 11:[address] davila, covering for dr. cates. i reviewed pt hx, lab and xray results. she agrees with placement into observation Discussed with .: Cornelius Counseled pt/family regarding: lab results, diagnosis, rad results - Departure Departure Disposition: Observation Clinical Impression: Cellulitis, Hypokalemia Condition: Stable Critical Care Time: No Referrals: CRISTINA CATES MD [Primary Care Provider] -
[2019-07-09] MEDS ORDERED: Sodium Chloride 0.9% 500 ML 500 ML IV ONE ×2 (10:21→10:26)
[2019-07-09 10:39] LABS: Lactic Acid 1.9 (0.4-2.0)
[2019-07-09 10:45] LABS: BASOPHIL % 0.2 % (0.0-0.4); Basophil (Absolute #) 0.02 (0-0.4); Eosinophil % 2.1 % (0.00-5.0); Hematocrit 34.6 % (42-50); Hemoglobin 11.3 gm/dl (12.5-18.0); Lymphocytes % 13.4 % (24.0-44.0); Mean Cell Volume 87.8 fl (78-100); Mean Corpuscular Hgb Concent. 32.7 g/dl (32-36); Mean Platelet Volume 9.7 fl (6-9.5); Monocyte (Absolute #) 0.75 (0.0-1.3); Monocytes % 7.8 % (0.0-12.0); Neutrophil % 76.5 % (36.0-66.0); Platelet Count 194 K/mm3 (150-450); Red Blood Count 3.94 M/mm3 (4.1-5.6); Red Cell Distribution Width 14.1 % (11.5-14.0); White Blood Count 9.7 K/mm3 (4.0-10.5)
[2019-07-09 10:47] LABS: Mean Corpuscular Hemoglobin 28.6 pg (26-32)
[2019-07-09] MEDS ORDERED: ROCEPHIN 1 Gm-D5w 50 ml Bag** 1 G/50 ML IVPB IV STA (10:55)
[2019-07-09 10:58] LABS: BLOOD UREA NITROGEN 21 mg/dL (9-20); CHLORIDE 96 mmol/L (98-107); Calcium 9.5 mg/dL (8.4-10.2); Carbon Dioxide 28 mmol/L (22-30); Creatinine 1 1.18 mg/dL (0.66-1.25); Glucose 97 mg/dL (74-106); SODIUM 139 mmol/L (137-145)
[2019-07-09 11:08] LABS: Potassium 2.5 mmol/L (3.5-5.1)
[2019-07-09] MEDS ORDERED: ROCEPHIN 1 Gm-D5w 50 ml Bag** 1 G/50 ML IVPB IV ONE (11:20)
[2019-07-09] MEDS ORDERED: PERCOCET TABLET 5/325MG PO STA (12:11)
[2019-07-09] MEDS ORDERED: Klor Con 10 MEQ PO ONE ×2 (12:12→12:33)
[2019-07-09] MEDS ORDERED: PERCOCET TABLET 5/325MG ONE (12:33)
[2019-07-09] MEDS ORDERED: Zofran 4 MG/2 ML VIAL IV PRN (13:04)
[2019-07-09] MEDS: Sodium Chloride 0.9% W/ 20 mEq KCl/LITER 1,000 ML IV SCH (13:23)
[2019-07-09] MEDS: POTASSIUM CHLORIDE 20 mEq IN WATER 100ML 20 MEQ/100 ML BAG IV SCH ×2 (13:23→16:22)
[2019-07-09] MEDS ORDERED: PHARMACY DOSING REQUEST MC ONE (15:44)
[2019-07-09] MEDS ORDERED: Protonix 40MG Tablet PO PRN (15:46)
[2019-07-09] MEDS: TYLENOL 325 MG PO PRN (16:18)
[2019-07-09] MEDS: NEURONTIN 300 MG PO SCH ×2 (17:00→22:38)
[2019-07-09] MEDS: Lopressor 25MG Tab PO SCH (17:00)
[2019-07-09] MEDS: PERCOCET TABLET 5/325MG PO PRN (17:49)
[2019-07-09] MEDS: DELTASONE 20 MG PO SCH (17:50)
--- NOTE | 2019-07-09 20:08 | XRAY ---
Indication: Pain. Comparison: None 3 views of the right hand demonstrates mild osteopenia, mild degenerative changes all IP/MCP joints, moderate degenerative changes base 1st metacarpal, and widening scaphoid lunate interval favoring underlying ligamentous tear. No other bony, articular, or soft tissue abnormalities.
[2019-07-10] MEDS: Sodium Chloride 0.9% W/ 20 mEq KCl/LITER 1,000 ML IV SCH (04:33)
[2019-07-10 05:18] LABS: Absolute Neutrophil Ct (ANC) 7.35 (1.4-6.9); BASOPHIL % 0.1 % (0.0-0.4); Basophil (Absolute #) 0.01 (0-0.4); Eosinophil % 0.1 % (0.00-5.0); Eosinophil (Absolute #) 0.01 (0-0.5); Hematocrit 31.9 % (42-50); Hemoglobin 10.4 gm/dl (12.5-18.0); Lymphocyte (Absolute #) 0.78 (1.0-4.6); Lymphocytes % 9.2 % (24.0-44.0); Mean Cell Volume 87.2 fl (78-100); Mean Corpuscular Hemoglobin 28.4 pg (26-32); Mean Corpuscular Hgb Concent. 32.6 g/dl (32-36); Mean Platelet Volume 10.2 fl (6-9.5); Monocyte (Absolute #) 0.32 (0.0-1.3); Monocytes % 3.8 % (0.0-12.0); Neutrophil % 86.8 % (36.0-66.0); Platelet Count 192 K/mm3 (150-450); Red Blood Count 3.66 M/mm3 (4.1-5.6); Red Cell Distribution Width 14.1 % (11.5-14.0); White Blood Count 8.5 K/mm3 (4.0-10.5)
[2019-07-10 05:27] LABS: ANION GAP 13.9 MEQ/L (5-15); BLOOD UREA NITROGEN 19 mg/dL (9-20); CHLORIDE 99 mmol/L (98-107); Calcium 8.7 mg/dL (8.4-10.2); Carbon Dioxide 27 mmol/L (22-30); Creatinine 1 0.95 mg/dL (0.66-1.25); Glucose 145 mg/dL (74-106); Potassium 3.1 mmol/L (3.5-5.1); SODIUM 137 mmol/L (137-145)
[2019-07-10] MEDS ORDERED: Protonix 40MG Tablet PO PRN (06:33)
[2019-07-10] MEDS ORDERED: Pepto-Bismol PO PRN (07:29)
--- NOTE | 2019-07-10 08:52 | PCM.NOTE ---
Date and Time: 07/10/19 0850 Subjective Assessment: reports some improvement in pain, redness and swelling in the right hand. no new complaints. family reports he was not taking meds at home, gabapentin helps his neuropathic pain but he stops taking it and his potassium which explains the recurrence of hypokalemia Objective Exam General Appearance: no apparent distress, alert Respiratory Exam: normal breath sounds, lungs clear, No respiratory distress Cardiovascular Exam: regular rate/rhythm, normal heart sounds Gastrointestinal/Abdomen Exam: soft, No tenderness, No mass Extremity Exam: other (right dorsum of hand mild swelling, mild erythema. tender ) OBJECTIVE DATA Vital Signs: Vital Signs - 24 hr Temp Pulse Resp BP Pulse Ox 07/10/19 08:20 93 L 07/10/19 08:00 97.5 F 62 18 113/55 96 07/10/19 07:45 95 07/10/19 06:55 97.5 F 62 18 113/55 96 07/10/19 04:00 97.9 F 61 16 130/61 95 07/09/19 23:33 98.4 F 64 20 124/61 97 07/09/19 20:21 97 07/09/19 20:17 98.1 F 69 18 152/69 96 07/09/19 16:00 98.1 F 85 17 159/67 97 07/09/19 14:25 98.3 F 86 18 142/66 95 07/09/19 12:31 80 18 132/65 97 07/09/19 11:32 79 18 128/68 96 07/09/19 10:09 97.9 F 86 18 153/88 97 Oxygen-Last 24 hours O2 Percentage 2 Liters = 28% O2 Percentage 2 Liters = 28% O2 Percentage 2 Liters = 28% O2 Percentage 2 Liters = 28% O2 Percentage 2 Liters = 28% O2 Percentage 2 Liters = 28% Oxygen Flowrate (L/min)-RT 2 Pain Assessment - Last Documented Pain Intensity 10 [facility] Intake and Output: Intake & Output 07/07/19 07/08/19 07/09/19 07/10/19 11:59 11:59 11:59 11:59 Intake Total 1620 Balance 1620 Weight 84.368 kg 87.1 kg Lab Results: Lab Results-Last 24 Hours 07/09/19 07/09/19 07/09/19 Range/Units 10:25 10:25 10:25 WBC 9.7 (4.0-10.5) K/mm3 RBC 3.94 L (4.1-5.6) M/mm3 Hgb 11.3 L (12.5-18.0) gm/dl Hct 34.6 L (42-50) % MCV 87.8 (78-100) fl MCH 28.6 (26-32) pg MCHC 32.7 (32-36) g/dl RDW 14.1 H (11.5-14.0) % Plt Count 194 (150-450) K/mm3 MPV 9.7 H (6-9.5) fl Gran % 76.5 H (36.0-66.0) % Eos # (Auto) 0.20 (0-0.5) Absolute Lymphs (auto) 1.30 (1.0-4.6) Absolute Monos (auto) 0.75 (0.0-1.3) Lymphocytes % 13.4 L (24.0-44.0) % Monocytes % 7.8 (0.0-12.0) % Eosinophils % 2.1 (0.00-5.0) % Basophils % 0.2 (0.0-0.4) % Absolute Granulocytes 7.40 H (1.4-6.9) Basophils # 0.02 (0-0.4) Sodium 139 (137-145) mmol/L Potassium 2.5 L* (3.5-5.1) mmol/L Chloride 96 L (98-107) mmol/L Carbon Dioxide 28 (22-30) mmol/L Anion Gap 18.0 H (5-15) MEQ/L BUN 21 H (9-20) mg/dL Creatinine 1.18 (0.66-1.25) mg/dL Estimated GFR > 60.0 ML/MIN Glucose 97 (74-106) mg/dL Lactic Acid (0.4-2.0) Uric Acid (3.5-7.2) mg/dL Calcium 9.5 (8.4-10.2) mg/dL Magnesium 1.6 (1.6-2.3) mg/dL 07/09/19 07/09/19 07/09/19 Range/Units 10:30 10:37 20:40 WBC (4.0-10.5) K/mm3 RBC (4.1-5.6) M/mm3 Hgb (12.5-18.0) gm/dl Hct (42-50) % MCV (78-100) fl MCH (26-32) pg MCHC (32-36) g/dl RDW (11.5-14.0) % Plt Count (150-450) K/mm3 MPV (6-9.5) fl Gran % (36.0-66.0) % Eos # (Auto) (0-0.5) Absolute Lymphs (auto) (1.0-4.6) Absolute Monos (auto) (0.0-1.3) Lymphocytes % (24.0-44.0) % Monocytes % (0.0-12.0) % Eosinophils % (0.00-5.0) % Basophils % (0.0-0.4) % Absolute Granulocytes (1.4-6.9) Basophils # (0-0.4) Sodium (137-145) mmol/L Potassium 3.1 L D (3.5-5.1) mmol/L Chloride (98-107) mmol/L Carbon Dioxide (22-30) mmol/L Anion Gap (5-15) MEQ/L BUN (9-20) mg/dL Creatinine (0.66-1.25) mg/dL Estimated GFR ML/MIN Glucose (74-106) mg/dL Lactic Acid 1.9 (0.4-2.0) Uric Acid 9.9 H (3.5-7.2) mg/dL Calcium (8.4-10.2) mg/dL Magnesium (1.6-2.3) mg/dL 07/10/19 07/10/19 Range/Units 04:20 04:20 WBC 8.5 (4.0-10.5) K/mm3 RBC 3.66 L (4.1-5.6) M/mm3 Hgb 10.4 L (12.5-18.0) gm/dl Hct 31.9 L (42-50) % MCV 87.2 (78-100) fl MCH 28.4 (26-32) pg MCHC 32.6 (32-36) g/dl RDW 14.1 H (11.5-14.0) % Plt Count 192 (150-450) K/mm3 MPV 10.2 H (6-9.5) fl Gran % 86.8 H (36.0-66.0) % Eos # (Auto) 0.01 (0-0.5) Absolute Lymphs (auto) 0.78 L (1.0-4.6) Absolute Monos (auto) 0.32 (0.0-1.3) Lymphocytes % 9.2 L (24.0-44.0) % Monocytes % 3.8 (0.0-12.0) % Eosinophils % 0.1 (0.00-5.0) % Basophils % 0.1 (0.0-0.4) % Absolute Granulocytes 7.35 H (1.4-6.9) Basophils # 0.01 (0-0.4) Sodium 137 (137-145) mmol/L Potassium 3.1 L (3.5-5.1) mmol/L Chloride 99 (98-107) mmol/L Carbon Dioxide 27 (22-30) mmol/L Anion Gap 13.9 (5-15) MEQ/L BUN 19 (9-20) mg/dL Creatinine 0.95 (0.66-1.25) mg/dL Estimated GFR > 60.0 ML/MIN Glucose 145 H (74-106) mg/dL Lactic Acid (0.4-2.0) Uric Acid (3.5-7.2) mg/dL Calcium 8.7 (8.4-10.2) mg/dL Magnesium (1.6-2.3) mg/dL Radiology Exams: Radiology Procedures Category Date Time Status HAND (MINIMUM 3 VIEWS) Stat Exams 07/09/19 10:45 Completed Assessment/Plan (1) Gout attack Current Visit: Yes Status: Acute Assessment & Plan: continue prednisone and observe, appears more gout than infectious based on presentation Code(s): M10.9 - GOUT, UNSPECIFIED (2) Cellulitis Current Visit: Yes Status: Acute Assessment & Plan: continue rocephin Code(s): L03.90 - CELLULITIS, UNSPECIFIED (3) Hypokalemia Current Visit: Yes Status: Acute Assessment & Plan: replacing with po potassium and IV Code(s): E87.6 - HYPOKALEMIA
[2019-07-10] MEDS: ROCEPHIN 1 Gm-D5w 50 ml Bag** 1 G/50 ML IVPB IV SCH (09:30)
[2019-07-10] MEDS: Lopressor 25MG Tab PO SCH (09:30)
--- NOTE | 2019-07-10 10:15 | HP ---
HISTORY OF PRESENT ILLNESS: This is an 88 year-old patient of Dr. Hdz who presented to the emergency room with severe right hand pain and was found also to be hypokalemic. His great-nephew is at the bedside. The patient reports that he has had pain for quite some time. He goes to have acupuncture done and did have some acupuncture done on his right hand. His nephew reports the patient lives in an apartment connected to their house and he woke up screaming in pain last night. They gave him a Vicoprofen that he had left over from some back pain and then this morning the patient asked to come to the hospital. The patient reports that the stinging pain has been going on for about a week. It has also been red and tender. When asked if he had any diarrhea the patient said no but his great-nephew said he has. He has had decrease in appetite. For his hand he has gone to PT one time but was frustrated that they were working more on his gait than his hand. He had seen Dr. Hernandez one time but was again frustrated with any progress and did not follow up. His nephew reports he has been confused for a couple of days. REVIEW OF SYSTEMS: No chest pain. No dyspnea. No fever. No blood in his stool. Otherwise the review of systems is negative. MEDICATIONS: Please see the ambulatory orders which I have reviewed. ALLERGIES: NKDA. PAST MEDICAL HISTORY: Arthritis multiple places. Esophagus problems. He is actually scheduled for a dilatation tomorrow at 0900 hours here at our hospital. Hypertension. Hypokalemia. PAST SURGICAL HISTORY: Esophageal dilatation. SOCIAL HISTORY: He does not have any children. He lives with his great-nephew. He used to work in a [employer]. FAMILY HISTORY: Noncontributory. PHYSICAL EXAMINATION: VITAL SIGNS: Temperature current 97.9F, temperature max 97.9F, heart rate 80, respiratory rate 18, blood pressure 132/65, weight 84.3 kg. Oxygen saturation 97% on room air. GENERAL: The patient is a pleasant man sitting up in bed alert and talkative. CVS: He has a regular rate and rhythm. No murmurs, gallops or rubs. CHEST: Clear to auscultation bilaterally. No crackles or wheezes. ABDOMEN: Soft, nontender, nondistended with normal bowel sounds. EXTREMITIES: His right hand has mild swelling and erythema around his wrist. No tenderness to palpation. 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 He is left-handed. He has good range of motion of his left wrist and fingers. Toes - His left second toe is mildly erythematous. No clubbing, cyanosis or edema of his lower extremities. ASSESSMENT AND PLAN: 1) RIGHT HAND PAIN: I am concerned that there may be some infection after acupuncture so he has been started on IV antibiotics. I am also going to check uric acid level as I am concerned he may have gout. He had an x-ray done in the emergency room and will await for the radiologist dictation on that. 2) HYPOKALEMIA: Will preplace his potassium through IV, check magnesium level as well. 3) HYPERTENSION: Will probably hold his Dyazide diuretic and use something else to help control his blood pressure that may be contributing to his hypokalemia. 4) DIARRHEA: Will continue to monitor him and see how is here in the hospital. 5) CONFUSION: His nephew said he had been more confused over the past couple of days. Will monitor carefully, will put him on fall precautions.
[2019-07-10] MEDS ORDERED: Ketamine HCl 50 MG/ML IV ONE (11:36)
[2019-07-10] MEDS ORDERED: DIPRIVAN 200 MG/20 ML IV ONE (11:36)
[2019-07-10] MEDS ORDERED: Lactated Ringers 2,000 ML IV ONE (12:12)
[2019-07-10] MEDS: PERCOCET TABLET 5/325MG PO PRN (13:55)
[2019-07-10] MEDS: NEURONTIN 300 MG PO SCH ×2 (15:25→15:34)
[2019-07-10] MEDS: DELTASONE 20 MG PO SCH (15:34)
[2019-07-10] MEDS: Klor Con 10 MEQ PO SCH (15:34)
[2019-07-10] MEDS: INDAPAMIDE PO SCH (15:34)
[2019-07-10] MEDS: TYLENOL 325 MG PO PRN (15:35)
[2019-07-11] MEDS: Klor Con 10 MEQ PO SCH ×3 (00:04→22:38)
[2019-07-11] MEDS: NEURONTIN 300 MG PO SCH ×4 (00:05→22:38)
[2019-07-11 05:21] LABS: BASOPHIL % 0.1 % (0.0-0.4); Basophil (Absolute #) 0.01 (0-0.4); Eosinophil (Absolute #) 0 (0-0.5); Hematocrit 28.9 % (42-50); Hemoglobin 9.5 gm/dl (12.5-18.0); Lymphocyte (Absolute #) 1.08 (1.0-4.6); Lymphocytes % 12.3 % (24.0-44.0); Mean Cell Volume 86.8 fl (78-100); Mean Corpuscular Hemoglobin 28.5 pg (26-32); Mean Corpuscular Hgb Concent. 32.9 g/dl (32-36); Mean Platelet Volume 10.2 fl (6-9.5); Monocytes % 6.8 % (0.0-12.0); Neutrophil % 80.8 % (36.0-66.0); Platelet Count 212 K/mm3 (150-450); Red Blood Count 3.33 M/mm3 (4.1-5.6); Red Cell Distribution Width 14.3 % (11.5-14.0); White Blood Count 8.8 K/mm3 (4.0-10.5)
[2019-07-11 05:26] LABS: ALKALINE PHOSPHATASE 53 U/L (38-126); ANION GAP 10.8 MEQ/L (5-15); BLOOD UREA NITROGEN 21 mg/dL (9-20); CHLORIDE 103 mmol/L (98-107); Calcium 8.9 mg/dL (8.4-10.2); Carbon Dioxide 28 mmol/L (22-30); Glucose 142 mg/dL (74-106); MAGNESIUM 1.8 mg/dL (1.6-2.3); SGOT/AST 16 U/L (17-59); SGPT/ALT 9 U/L (0-50); SODIUM 139 mmol/L (137-145)
[2019-07-11 05:53] LABS: Potassium 2.8 mmol/L (3.5-5.1)
[2019-07-11] MEDS: POTASSIUM CHLORIDE 20 mEq IN WATER 100ML 20 MEQ/100 ML BAG IV SCH ×2 (06:39→10:43)
--- NOTE | 2019-07-11 08:24 | OP ---
SURGERY DATE/TIME: 07/10/2019 1145 PREOPERATIVE DIAGNOSIS: Dysphasia, need for upper endoscopy. POSTOPERATIVE DIAGNOSES: 1) Minimal gastritis just few little petechial hemorrhages. 2) Proximal esophageal spasm and narrowing requiring dilatation. 3) Distal esophageal narrowing and spasm requiring dilatation. PROCEDURES: 1) EGD with cold biopsy of the antrum to evaluate for Helicobacter pylori. 2) Cold biopsy distal esophagus. 3) Esophageal balloon dilatation distal esophagus size 20 balloon dilator. 4) Esophageal balloon dilatation symptomatic proximal esophageal narrowing and spasm (size 20 balloon dilator). SURGEON: Dr. Jorge Ceja. ANESTHESIA: MAC. ESTIMATED BLOOD LOSS: Minimal. INDICATIONS: The patient was in the hospital for some hand problems. There was question whether it was gout. He still had dysphagia and needed the endoscopy while he was here in the hospital as he had already been scheduled as an outpatient. Consent had been obtained. Risks and benefits explained in detail and not limited to and consent obtained. DESCRIPTION OF PROCEDURE AND FINDINGS: The patient is taken to the endoscopy suite. MAC anesthesia introduced. After official time out and no disagreement with planned procedure, bite block positioned. Video gastroscope passed down the oropharynx. There is a tightened, narrowing area in the proximal esophagus. There was no evidence of any obvious mass but it was felt that this definitely warrants dilatation as he is having symptoms choking and some bread getting stuck in this area. Otherwise the scope was able to be passed down through the distal esophagus which also appeared to have a little bit of narrowing and spasm area. It was felt this warranted dilatation as well. There is no obvious mass here. He did have some mild erythema. Some cold biopsies taken to evaluate for esophagitis versus other etiology. Otherwise the scope passed through the patent pylorus to the junction of the second and third portion of the duodenum. On withdrawal of the scope he did have little petechial hemorrhages in the stomach. Cold biopsy taken to evaluate for Helicobacter pylori. Good hemostasis noted. On retroflex he had a slight weakness in hiatus but no evidence of any large hiatal hernia. The scope was pulled back to gastroesophageal junction. Again, cold biopsy had been taken for further evaluation. No evidence of any obvious mass in the area. The scope pass passed back down into the stomach. A 20 balloon catheter carefully inserted and pulled back to the distal esophageal narrowing and this is carefully inflated up to size 19 initially for about 40 to 45 seconds and then finally the size 20 for a couple of minutes and then balloon catheter released. The catheter is then pulled back up to the main area of symptoms in proximal esophagus area. I felt this definitely warranted dilatation. There was no evidence of any obvious mass or mucosal lesion to biopsy. He had symptomatic narrowed area there. There for the balloon catheter is carefully pulled up to this area and inflated to size 18 for 30 to 45 seconds, size 19 for 30 to 45 seconds and finally size 20 balloon dilator for about 2 minutes. It was then decompressed. Balloon catheter removed. The scope much more easily passed through this area back down in the stomach and then gradually withdrawn. The two areas that were dilated had minimal abrasion but no evidence of any full thickness issues or injuries secondary to dilatation. Both of those areas appeared to be much more patent than they were previously. The scope much more easily passed through this area. The patient tolerated the procedure well. There was no family initially but I saw family over on the floor later and updated them on the findings.
--- NOTE | 2019-07-11 08:26 | PCM.NOTE ---
Date and Time: 07/11/19822 Subjective Assessment: patient had a very bad night, could not sleep well and feels poorly. has some pain in his hands Objective Exam General Appearance: no apparent distress, alert Respiratory Exam: normal breath sounds, lungs clear, No respiratory distress Cardiovascular Exam: regular rate/rhythm, normal heart sounds Gastrointestinal/Abdomen Exam: soft, No tenderness, No mass Extremity Exam: other (mild swelling right hand, redness and warmth improved) OBJECTIVE DATA Vital Signs: Vital Signs - 24 hr Temp Pulse Resp BP Pulse Ox 07/11/19 04:00 98.8 F 55 L 18 145/66 07/11/19 00:00 98.7 F 59 L 18 137/65 91 L 07/10/19 21:32 94 L 07/10/19 20:00 14 07/10/19 16:00 97.7 F 60 17 130/63 91 L 07/10/19 12:00 98.1 F 70 18 120/77 94 L Pain Assessment - Last Documented Pain Intensity 6 Pain [facility] Intake and Output: Intake & Output 07/08/19 07/09/19 07/10/19 07/11/19 11:59 11:59 11:59 11:59 Intake Total 1620 560 Balance 1620 560 Weight 84.368 kg 87.1 kg Lab Results: Lab Results-Last 24 Hours 07/11/19 07/11/19 Range/Units 04:22 04:22 WBC 8.8 (4.0-10.5) K/mm3 RBC 3.33 L (4.1-5.6) M/mm3 Hgb 9.5 L (12.5-18.0) gm/dl Hct 28.9 L (42-50) % MCV 86.8 (78-100) fl MCH 28.5 (26-32) pg MCHC 32.9 (32-36) g/dl RDW 14.3 H (11.5-14.0) % Plt Count 212 (150-450) K/mm3 MPV 10.2 H (6-9.5) fl Gran % 80.8 H (36.0-66.0) % Eos # (Auto) 0 (0-0.5) Absolute Lymphs (auto) 1.08 (1.0-4.6) Absolute Monos (auto) 0.60 (0.0-1.3) Lymphocytes % 12.3 L (24.0-44.0) % Monocytes % 6.8 (0.0-12.0) % Eosinophils % 0.0 (0.00-5.0) % Basophils % 0.1 (0.0-0.4) % Absolute Granulocytes 7.10 H (1.4-6.9) Basophils # 0.01 (0-0.4) Sodium 139 (137-145) mmol/L Potassium 2.8 L* (3.5-5.1) mmol/L Chloride 103 (98-107) mmol/L Carbon Dioxide 28 (22-30) mmol/L Anion Gap 10.8 (5-15) MEQ/L BUN 21 H (9-20) mg/dL Creatinine 0.90 (0.66-1.25) mg/dL Estimated GFR > 60.0 ML/MIN Glucose 142 H (74-106) mg/dL Calcium 8.9 (8.4-10.2) mg/dL Magnesium 1.8 (1.6-2.3) mg/dL Total Bilirubin 0.30 (0.2-1.3) mg/dL AST 16 L (17-59) U/L ALT 9 (0-50) U/L Alkaline Phosphatase 53 (38-126) U/L Serum Total Protein 6.0 L (6.3-8.2) g/dL Albumin 3.0 L (3.5-5.0) g/dL Radiology Exams: Radiology Procedures Category Date Time Status HAND (MINIMUM 3 VIEWS) Stat Exams 07/09/19 10:45 Completed Multi-Disciplinary Progress Notes: Multi-Disciplinary Progress Notes 07/10/19 11:01 Case Management Note by Danni Vázquez NORMALLY INDEPENDENT WITH ALL ADL'S. PLANS TO RETURN HOME TO PRE EPISODIC LEVEL OF FNX. Initialized on 07/10/19 11:01 - END OF NOTE Assessment/Plan (1) Gout attack Current Visit: Yes Status: Acute Assessment & Plan: continue prednisone, improving clinically Code(s): M10.9 - GOUT, UNSPECIFIED (2) Cellulitis Current Visit: Yes Status: Acute Assessment & Plan: on rocephin Code(s): L03.90 - CELLULITIS, UNSPECIFIED (3) Hypokalemia Current Visit: Yes Status: Acute Assessment & Plan: replace IV Code(s): E87.6 - HYPOKALEMIA (4) Altered mental status Current Visit: Yes Status: Acute Code(s): R41.82 - ALTERED MENTAL STATUS, UNSPECIFIED (5) Altered mental status Current Visit: No Status: Acute Qualifiers: Altered mental status type: disorientation Qualified Code(s): R41.0 - Disorientation, unspecified Assessment & Plan: will order prn zyprexa for agitation, has some underlying dementia exacerbated by hospital admission Code(s): R41.82 - ALTERED MENTAL STATUS, UNSPECIFIED
[2019-07-11] MEDS ORDERED: Zyprexa Zydis 5 MG PO PRN (08:30)
[2019-07-11] MEDS: ROCEPHIN 1 Gm-D5w 50 ml Bag** 1 G/50 ML IVPB IV SCH (10:25)
[2019-07-11] MEDS: Lopressor 25MG Tab PO SCH (10:25)
[2019-07-11] MEDS: DELTASONE 20 MG PO SCH (10:25)
[2019-07-11] MEDS: INDAPAMIDE PO SCH (10:26)
[2019-07-11] MEDS: PERCOCET TABLET 5/325MG PO PRN (10:45)
[2019-07-12 04:40] LABS: BASOPHIL % 0.1 % (0.0-0.4); Basophil (Absolute #) 0.01 (0-0.4); Eosinophil % 0.2 % (0.00-5.0); Eosinophil (Absolute #) 0.02 (0-0.5); Hemoglobin 10.7 gm/dl (12.5-18.0); Lymphocyte (Absolute #) 1.81 (1.0-4.6); Lymphocytes % 14.9 % (24.0-44.0); Mean Corpuscular Hemoglobin 28.5 pg (26-32); Mean Corpuscular Hgb Concent. 32.4 g/dl (32-36); Mean Platelet Volume 9.6 fl (6-9.5); Monocyte (Absolute #) 0.91 (0.0-1.3); Monocytes % 7.5 % (0.0-12.0); Neutrophil % 77.3 % (36.0-66.0); Platelet Count 263 K/mm3 (150-450); Red Blood Count 3.75 M/mm3 (4.1-5.6); Red Cell Distribution Width 14.6 % (11.5-14.0); White Blood Count 12.2 K/mm3 (4.0-10.5)
[2019-07-12 04:54] LABS: ANION GAP 11.5 MEQ/L (5-15); BLOOD UREA NITROGEN 25 mg/dL (9-20); CHLORIDE 104 mmol/L (98-107); Calcium 9.1 mg/dL (8.4-10.2); Carbon Dioxide 28 mmol/L (22-30); Creatinine 1 0.98 mg/dL (0.66-1.25); Glucose 109 mg/dL (74-106); MAGNESIUM 1.8 mg/dL (1.6-2.3); Potassium 3.5 mmol/L (3.5-5.1); SODIUM 140 mmol/L (137-145)
--- NOTE | 2019-07-12 09:13 | PCM.DS ---
Discharge Summary Date of Admission: 07/09/19 12:52 Admitting Physician: NIECY ELAM Consults: Consults on Case 07/10/19 07:06 Consult Surgery ROUTINE Primary Care Provider: CRISTINA HORTA PRAKER Allergies Allergies No Known Drug Allergies Allergy (Verified 07/09/19 10:09) Hospital Summary - Hospital Course Hospital Course: patient was admitted with pain, swelling in the hand and low potassium. treated with rocephin, had elevated uric acid. improved with prednisone. - Vitals & Intake/Output Vital Signs: Vital Signs Temperature 98.0 F 07/12/19 08:00 Pulse Rate 56 L 07/12/19 08:00 Respiratory Rate 16 07/12/19 08:00 Blood Pressure 145/72 07/12/19 08:00 O2 Sat by Pulse Oximetry 95 07/12/19 08:00 Oxygen-Last Documented O2 Percentage 2 Liters = 28% Intake & Output: Intake & Output 07/09/19 07/10/19 07/11/19 07/12/19 11:59 11:59 11:59 11:59 Intake Total 0987 547 0744 Output Total 2 Balance 9242 359 9677 Weight 84.368 kg 87.1 kg 89.2 kg 90.2 kg - Lab Result Diagrams: 07/12/19 04:39 07/12/19 04:39 Lab Results-Last 24 Hrs: Lab Results-Last 24 Hours 07/11/19 07/12/19 07/12/19 Range/Units 18:16 04:39 04:39 WBC 12.2 H (4.0-10.5) K/mm3 RBC 3.75 L (4.1-5.6) M/mm3 Hgb 10.7 L (12.5-18.0) gm/dl Hct 33.0 L (42-50) % MCV 88.0 (78-100) fl MCH 28.5 (26-32) pg MCHC 32.4 (32-36) g/dl RDW 14.6 H (11.5-14.0) % Plt Count 263 (150-450) K/mm3 MPV 9.6 H (6-9.5) fl Gran % 77.3 H (36.0-66.0) % Eos # (Auto) 0.02 (0-0.5) Absolute Lymphs (auto) 1.81 (1.0-4.6) Absolute Monos (auto) 0.91 (0.0-1.3) Lymphocytes % 14.9 L (24.0-44.0) % Monocytes % 7.5 (0.0-12.0) % Eosinophils % 0.2 (0.00-5.0) % Basophils % 0.1 (0.0-0.4) % Absolute Granulocytes 9.40 H (1.4-6.9) Basophils # 0.01 (0-0.4) Sodium 140 (137-145) mmol/L Potassium 3.7 D 3.5 (3.5-5.1) mmol/L Chloride 104 (98-107) mmol/L Carbon Dioxide 28 (22-30) mmol/L Anion Gap 11.5 (5-15) MEQ/L BUN 25 H (9-20) mg/dL Creatinine 0.98 (0.66-1.25) mg/dL Estimated GFR > 60.0 ML/MIN Glucose 109 H (74-106) mg/dL Calcium 9.1 (8.4-10.2) mg/dL Magnesium 1.8 (1.6-2.3) mg/dL Micro Results-Entire Visit: Microbiology 07/09/19 10:38 Blood Culture - Preliminary Blood NO GROWTH TO DATE 07/09/19 10:25 Blood Culture - Preliminary Blood NO GROWTH TO DATE - Procedures and Test Procedures and Tests throughout Hospitalization: Therapy Orders & Screens 07/09/19 15:20 OT Screen per Nursing Assess ONCE Comment: Protocol Order Physician Instructions: Greater than 3 points order OT Admission Screening Reason For Exam: Triggered on Admission Diagnosis: cellulitis Open Wound/Cellutlitis/Pressure Ulcers: Yes Acute Fx/ORIF/Change in wt bearing status: No Severe MUSCULOSKELETAL pain: No ADL Dysfunction: No Acute CVA w/Hemiparesis/Hemiplegia: No Decreased Functional Mobility/Strength: Yes Sprain/Strain: No Acute Post-op Mobility Dysfunction: No Total Points: 6 PT Screen per Nursing Assess ONCE Comment: Protocol Order Physician Instructions: Greater than 3 points order PT Admission Screenin Reason For Exam: Triggered on Admission Diagnosis: cellulitis Open Wound/Cellutlitis/Pressure Ulcers: Yes Acute Fx/ORIF/Change in wt bearing status: No Severe MUSCULOSKELETAL pain: No ADL Dysfunction: No Acute CVA w/Hemiparesis/Hemiplegia: No Decreased Functional Mobility/Strength: Yes Sprain/Strain: No Acute Post-op Mobility Dysfunction: No Total Points: 6 07/09/19 16:04 RT Screen per Nursing Assess ONCE Comment: Protocol Order Physician Instructions: Greater than 3 points order RT Admission Screen Reason For Exam: PLACED ON OXYGEN BY ER Diagnosis: cellulitis Diagnosis: cellulitis Pneumonia: No Home O2: No Asthma: No CHF: No Home CPAP/BIPAP: No Home Nebs/MDI: No Total Points: 0 07/09/19 20:20 Oxygen Nasal Cannula 2 lpm Comment: Diagnosis: cellulitis Discharge Exam General Appearance: no apparent distress, alert Respiratory Exam: normal breath sounds, lungs clear, No respiratory distress Cardiovascular Exam: regular rate/rhythm, normal heart sounds Gastrointestinal/Abdomen Exam: soft, No tenderness, No mass Extremity Exam: other (redness and swelling in right hand resolved) Final Diagnosis/Problem List - Final Discharge Diagnosis/Problem (1) Gout attack Current Visit: Yes Status: Acute Code(s): M10.9 - GOUT, UNSPECIFIED (2) Cellulitis Current Visit: Yes Status: Acute Code(s): L03.90 - CELLULITIS, UNSPECIFIED (3) Hypokalemia Current Visit: Yes Status: Acute Code(s): E87.6 - HYPOKALEMIA (4) Altered mental status Current Visit: Yes Status: Acute Assessment & Plan: has some underlying dementia, family lives with him and cares for him Code(s): R41.82 - ALTERED MENTAL STATUS, UNSPECIFIED - Discharge Disposition: Home, Self-Care Condition: Stable Prescriptions: New Prednisone 20 mg [Deltasone 20 mg] 60 mg PO DAILY #18 tablet Oxycodone/APAP 5 mg/325 mg [Percocet Tablet 5/325Mg] 1 tab PO Q4H PRN PRN #20 tablet MDD 5 PRN Reason: Pain Allopurinol 300 mg [Zyloprim 300 mg] 300 mg PO DAILY #30 tablet Continue Metoprolol Tartrate 25 mg PO DAILY Indapamide 2.5 mg PO DAILY Gabapentin 300 mg PO TID Potassium Chloride 10 Meq Tab* [Klor Con 10 MEQ] 10 meq PO DAILY #30 tab Senath-3/Dha/Epa/Fish Oil [Senath 3 500 Softgel] 1 each PO DAILY Aspirin [Aspir-Low] 81 mg PO DAILY Non-Formulary Drug [Non-Formulary Item] 1 each PO DAILY Non-Formulary Drug [Non-Formulary Item] 1 each PO DAILY Non-Formulary Drug [Non-Formulary Item] 1 each PO DAILY Non-Formulary Drug [Non-Formulary Item] 1 each PO DAILY Follow up with: CRISTINA HORTA MD [Primary Care Provider] - 1 Week LOIS VERNON [COURTESY STAFF] - 1 Week (FOLLOW UP WITH DR VERNON 1 WEEK AFTER RELEASE.)
[2019-07-12] MEDS: ROCEPHIN 1 Gm-D5w 50 ml Bag** 1 G/50 ML IVPB IV SCH (10:12)
[2019-07-12] MEDS: NEURONTIN 300 MG PO SCH (10:15)
[2019-07-12] MEDS: Klor Con 10 MEQ PO SCH (10:17)
[2019-07-12] MEDS: DELTASONE 20 MG PO SCH (10:18)
[2019-07-12] MEDS: Lopressor 25MG Tab PO SCH (10:18)
[2019-07-12] MEDS: INDAPAMIDE PO SCH (10:19)
[2019-07-12] MEDS: PERCOCET TABLET 5/325MG PO PRN (12:30)
[2019-07-12 13:06] VITALS: BP 155/74; PULSE 50; O2SAT 93
== END 2019-07-12 12:40 | disposition home or self-care (01) ==
LOC: ED 10:02 → MED SURG 12:52
PROVIDERS: ADMIT Internal Medicine; ATTEND Family Medicine
DX: M10.9 Gout, unspecified (principal); L03.114 Cellulitis of left upper limb; E87.6 Hypokalemia; K22.2 Esophageal obstruction; K29.70 Gastritis, unspecified, without bleeding; K22.4 Dyskinesia of esophagus; R41.82 Altered mental status, unspecified; Z79.899 Other long term (current) drug therapy; R13.10 Dysphagia, unspecified; I10 Essential (primary) hypertension; R19.7 Diarrhea, unspecified
CPT/HCPCS: 36000; 36415; 43239; 43249; 73130; 80048; 80053; 83605; 83735; 84132; 84550; 85025; 87040; 93268; 94760; 96360; 96365; 99285; G0378; 99100; C1726; J0696; J2704; J3480; A9270-GY

== ENCOUNTER 2019-09-05 17:52 | Inpatient (IN) | payer MEDICARE ==
--- NOTE | 2019-09-05 19:08 | ERPHSYRPT ---
- History of Present Illness Source: patient Exam Limitations: other (INAJA) Patient Subjective Stated Complaint: pt here for pain to both feet, and slight confusion for last couple days, eating and drinking well, pt lives with nephew Triage Nursing Assessment: pt arrived per wc,alert .knows year and place,and person,skin w/d/p. abd soft, edema to feet, pt states he has pain when feet are touched, Timing/Duration: day(s) (Past 3 days) Severity: moderate Modifying Factors: Improves With: other (none) Associated Symptoms: loss of appetite, weakness, No nausea, No vomiting, No abdominal pain, No shortness of breath, No heartburn, No diaphoresis, No cough, No chest pain, No fever, No rash, No syncope, No seizure Hx Tetanus, Diphtheria Vaccination/Date Given: No Hx Influenza Vaccination/Date Given: Yes Hx Pneumococcal Vaccination/Date Given: Yes Immunizations Up to Date: Yes - History of Present Illness Time Seen by Provider: 09/05/19 18:15 Physician History: Patient is a 88yo M who presents to our ED with his great nephew for evaluation of confusion, decreased PO, dizziness, generalized weakness, dehydration and bilateral foot pain. Patient lives with his great nephew. Symptoms are progressive. Patient is INAJA. Patient has a history of gout. He saw his slasher hand today. NO trauma. No fevers. NO CP or SOB. (JERRY REINOSO) Allergies/Adverse Reactions: No Known Drug Allergies Allergy (Verified 09/05/19 18:24) Home Medications: Indapamide 2.5 mg PO DAILY 12/12/14 [History] Metoprolol Tartrate 25 mg PO DAILY 12/12/14 [History] Gabapentin 300 mg PO TID 11/13/18 [History] [place]-3/Dha/Epa/Fish Oil [[place] 3 500 Softgel] 1 each PO DAILY 07/05/19 [History ] Aspirin [Aspir-Low] 81 mg PO DAILY 07/09/19 [History] Non-Formulary Drug [Non-Formulary Item] 1 each PO DAILY 07/09/19 [History] Non-Formulary Drug [Non-Formulary Item] 1 each PO DAILY 07/09/19 [History] Non-Formulary Drug [Non-Formulary Item] 1 each PO DAILY 07/09/19 [History] Non-Formulary Drug [Non-Formulary Item] 1 each PO DAILY 07/09/19 [History] - Review of Systems Constitutional: No Fever, No Chills Eyes: No Symptoms Ears, Nose, & Throat: No Symptoms Respiratory: No Cough, No Dyspnea Cardiac: No Chest Pain, No Edema, No Syncope Abdominal/Gastrointestinal: No Abdominal Pain, No Nausea, No Vomiting, No Diarrhea Genitourinary Symptoms: No Dysuria Musculoskeletal: No Back Pain, No Neck Pain Skin: No Rash Neurological: No Dizziness, No Focal Weakness, No Sensory Changes Psychological: No Symptoms Endocrine: No Symptoms All Other Systems: Reviewed and Negative - Past Medical History Pertinent Past Medical History: Yes Neurological History: No Pertinent History ENT History: No Pertinent History Cardiac History: Hypertension Respiratory History: No Pertinent History Endocrine Medical History: No Pertinent History Musculoskeletal History: Arthritis, Degenerative Disk Disease GI Medical History: No Pertinent History History: No Pertinent History Psycho-Social History: No Pertinent History Male Reproductive Disorders: No Pertinent History Other Medical History: BACK PAIN, Abdominal aortic aneurysm. hypokalemia, some confusion - Past Surgical History Past Surgical History: Yes Neuro Surgical History: No Pertinent History Cardiac: No Pertinent History Respiratory: No Pertinent History Gastrointestinal: Cholecystectomy, Other Genitourinary: No Pertinent History Musculoskeletal: Orthopedic Surgery Male Surgical History: No Pertinent History Other Surgical History: back surgery, EGD w/ dilitation, bilateral knee surgeries-repairs on minicus, VEDA - Social History Smoking Status: Former smoker How long have you smoked: 65 years Exposure to second hand smoke: No Drug Use: none Patient Lives Alone: No - Physical Exam General Appearance: no apparent distress, alert Eye Exam: PERRL/EOMI, eyes nml inspection Ears, Nose, Throat Exam: normal ENT inspection, TMs normal, pharynx normal, moist mucous membranes, dry mucous membranes (Dry appearing oral mucous membranes. ), other (No Rt. mastoid pain or TTP) Neck Exam: normal inspection, non-tender, supple, full range of motion Respiratory Exam: normal breath sounds, lungs clear, No respiratory distress Cardiovascular Exam: regular rate/rhythm, normal heart sounds, normal peripheral pulses Gastrointestinal/Abdomen Exam: soft, normal bowel sounds, No tenderness, No mass Back Exam: normal inspection, normal range of motion, No CVA tenderness, No vertebral tenderness Extremity Exam: normal inspection (Bilateral foot pain, L >R. Left NO signs of trauma. Bilateral LE NVI distally. ), normal range of motion, pelvis stable Neurologic Exam: alert, oriented x 3, cooperative, normal mood/affect, nml cerebellar function, nml station & gait, sensation nml, No motor deficits Skin Exam: normal color, warm, dry, No rash Lymphatic Exam: No adenopathy SpO2: 93 - Nursing Vital Signs Nursing Vital Signs: Initial Vital Signs Temperature 98.8 F 09/05/19 18:14 Pulse Rate 92 H 09/05/19 18:14 Respiratory Rate 09/05/19 18:14 Blood Pressure 131/63 09/05/19 18:14 O2 Sat by Pulse Oximetry 93 L 09/05/19 18:14 Pain Scale Pain Intensity [] 6 Pain Intensity 0 - Course EKG Interpreted by Me: RATE (84), LAFB, NORMAL INTERVALS - Radiology Exams Foot X-ray Interpretation: Interpreted by me (xr of feet shows osteopenia, heel spur and degenerative arthritis. NO obvious fractures or dislocation. ) Chest X-ray Interpretation: Interpreted by me (No effusion, consolidation or masses. No pneumothorax. ) - CT Exams Head CT Interpretation: Other (No Comparison, nonacute senile brain, incidental parial opacification R. Middle ear and Rt. Mastoid air cells, probable inflammatory. Previous L mastoidectomy) Ordered Tests: Active Orders 24 hr Category Date Time Status EKG-ER Only STAT Care 09/05/19 19:12 Active Order K Level 2 hours post-inf 2 HRS POST K-INFUSED Care 09/05/19 20:46 Active Telemetry q4h Care 09/05/19 20:46 Active CHEST 1 VIEW (PORTABLE) Stat Exams 09/05/19 18:41 Taken FOOT (2 VIEWS) Stat Exams 09/05/19 18:41 Taken FOOT (2 VIEWS) Stat Exams 09/05/19 18:41 Taken HEAD WITHOUT CONTRAST [CT] Stat Exams 09/05/19 18:42 Taken CMP Stat Lab 09/05/19 18:36 Completed MAGNESIUM Stat Lab 09/05/19 18:36 Completed Potassium AM.LAB Lab 09/06/19 04:00 Ordered TROPONIN Q3H Lab 09/05/19 18:45 Completed TROPONIN Q3H Lab 09/05/19 21:19 Completed TROPONIN Q3H Lab 09/06/19 00:45 Ordered TROPONIN Q3H Lab 09/06/19 03:45 Ordered TROPONIN Q3H Lab 09/06/19 06:45 Ordered TSH, 3RD Generation Stat Lab 09/05/19 18:36 Completed UA W/RFX UR CULTURE Stat Lab 09/05/19 18:41 Completed Transfer Order Routine Transfer 09/05/19 Ordered Medication Summary Generic Name Dose Route Start Last Admin Trade Name Anastasiya PRN Reason Stop Dose Admin Sodium Chloride 1,000 mls @ 100 mls/hr 09/05/19 18:45 09/05/19 21:47 Sodium Chloride 0.9% 1000 Ml IV 10/05/19 18:44 100 mls/hr .Q10H RACHELLE Administration Potassium Chloride 20 meq in 100 mls @ 50 mls/hr 09/05/19 20:46 09/05/19 21: 48 Potassium Chloride 20 Meq In Water 100ml IV 09/05/19 22:45 50 mls/hr STAT ONE Administration Discontinued Medications Generic Name Dose Route Start Last Admin Trade Name Anastasiya PRN Reason Stop Dose Admin Aspirin 325 mg 09/05/19 20:20 09/05/19 22:06 Ecotrin 325 Mg PO 09/05/19 20:21 Not Given ONCE STA Aspirin Confirm 09/05/19 21:35 Baby Aspirin 81 Mg Chew Administered 09/05/19 21:36 Dose 324 mg .ROUTE .STK-MED ONE Aspirin 324 mg 09/05/19 21:39 09/05/19 22:02 Baby Aspirin 81 Mg Chew PO 09/05/19 21:40 324 mg STAT ONE Administration Potassium Chloride Confirm 09/05/19 21:36 Potassium Chloride 20 Meq In Water 100ml Administered 09/05/19 21:37 Dose 100 mls @ ud IV .STK-MED ONE Morphine Sulfate 2 mg 09/05/19 21:17 09/05/19 22:07 Morphine Sulfate 10 Mg/Ml IV 09/05/19 21:18 Not Given ONCE STA Morphine Sulfate Confirm 09/05/19 21:36 Morphine Sulfate 2 Mg Inj Administered 09/05/19 21:37 Dose 2 mg .ROUTE .STK-MED ONE Morphine Sulfate 2 mg 09/05/19 21:39 09/05/19 21:49 Morphine Sulfate 2 Mg Inj IV 09/05/19 21:40 2 mg STAT ONE Administration Potassium Chloride 40 meq 09/05/19 20:22 09/05/19 21:45 Klor Con 10 Meq PO 09/05/19 20:23 40 meq STAT ONE Administration Potassium Chloride Confirm 09/05/19 21:36 Klor Con 10 Meq Administered 09/05/19 21:37 Dose 40 meq PO .STK-MED ONE Lab/Rad Data: Laboratory Result Diagrams 09/05/19 18:36 Laboratory Results 09/05/19 09/05/19 09/05/19 Range/Units 21:19 18:45 18:41 Sodium (137-145) mmol/L Potassium (3.5-5.1) mmol/L Chloride (98-107) mmol/L Carbon Dioxide (22-30) mmol/L Anion Gap (5-15) MEQ/L BUN (9-20) mg/dL Creatinine (0.66-1.25) mg/dL Estimated GFR ML/MIN Glucose (74-106) mg/dL Calcium (8.4-10.2) mg/dL Magnesium (1.6-2.3) mg/dL Total Bilirubin (0.2-1.3) mg/dL AST (17-59) U/L ALT (0-50) U/L Alkaline Phosphatase (38-126) U/L Troponin I 0.038 H* 0.040 H* (0.000-0.034) ng/mL Serum Total Protein (6.3-8.2) g/dL Albumin (3.5-5.0) g/dL TSH 3rd Generation (0.47-4.68) mIU/L Urine Color YELLOW (YELLOW) Urine Appearance CLEAR (CLEAR) Urine pH 5.0 (5-6) Ur Specific [place] 1.017 (1.005-1.025) Urine Protein NEGATIVE (Negative) Urine Ketones TRACE (NEGATIVE) Urine Blood NEGATIVE (0-5) Sanjay/ul Urine Nitrite NEGATIVE (NEGATIVE) Urine Bilirubin NEGATIVE (NEGATIVE) Urine Urobilinogen NEGATIVE (0-1) mg/dL Ur Leukocyte Esterase NEGATIVE (NEGATIVE) Urine WBC (Auto) NONE (0-5) /HPF Urine RBC (Auto) NONE (0-2) /HPF U Epithel Cells (Auto) NONE (FEW) /HPF Urine Bacteria (Auto) NONE (NEGATIVE) /HPF Urine Mucus (Auto) SLIGHT (NEGATIVE) /HPF Urine Culture Reflexed NO (NO) Urine Glucose NEGATIVE (NEGATIVE) mg/dL 09/05/19 Range/Units 18:36 Sodium 138 (137-145) mmol/L Potassium 2.0 L* (3.5-5.1) mmol/L Chloride 96 L (98-107) mmol/L Carbon Dioxide 29 (22-30) mmol/L Anion Gap 15.1 H (5-15) MEQ/L BUN 21 H (9-20) mg/dL Creatinine 1.13 (0.66-1.25) mg/dL Estimated GFR > 60.0 ML/MIN Glucose 117 H (74-106) mg/dL Calcium 8.9 (8.4-10.2) mg/dL Magnesium 1.7 (1.6-2.3) mg/dL Total Bilirubin 1.10 (0.2-1.3) mg/dL AST 19 (17-59) U/L ALT 9 (0-50) U/L Alkaline Phosphatase 68 (38-126) U/L Troponin I (0.000-0.034) ng/mL Serum Total Protein 6.9 (6.3-8.2) g/dL Albumin 3.6 (3.5-5.0) g/dL TSH 3rd Generation 0.894 (0.47-4.68) mIU/L Urine Color (YELLOW) Urine Appearance (CLEAR) Urine pH (5-6) Ur Specific [place] (1.005-1.025) Urine Protein (Negative) Urine Ketones (NEGATIVE) Urine Blood (0-5) Sanjay/ul Urine Nitrite (NEGATIVE) Urine Bilirubin (NEGATIVE) Urine Urobilinogen (0-1) mg/dL Ur Leukocyte Esterase (NEGATIVE) Urine WBC (Auto) (0-5) /HPF Urine RBC (Auto) (0-2) /HPF U Epithel Cells (Auto) (FEW) /HPF Urine Bacteria (Auto) (NEGATIVE) /HPF Urine Mucus (Auto) (NEGATIVE) /HPF Urine Culture Reflexed (NO) Urine Glucose (NEGATIVE) mg/dL - Progress Progress: improved (We will hold off on antibiotics to treat radiologic finding of rt. mastoid inflammation. Patient has no pain and nephew provided that patient has history of "water in hear" likely describing chronic effusion. ) Discussed with Dr.: Pink (Case discussed with Dr. Crystal. We will repeat troponin. If troponin trending upward, we will transfer, otherwise we will admit. ) - Progress Progress Note: 09/05/19 22:[address] reinoso, if pts troponin stabilized or lower, dr. crystal agrees to admission. we will admit pt. (LESLIE HIGGINS) - Departure Departure Disposition: Home, In-patient Admission Critical Care Time: No - Departure Clinical Impression: Mastoiditis of right side, Weakness, Dizziness, Dehydration, Foot pain, bilateral, NSTEMI (non-ST elevated myocardial infarction), Hypokalemia Condition: Stable Referrals: CRISTINA HORTA MD [Primary Care Provider] -
[2019-09-05] MEDS ORDERED: Sodium Chloride 0.9% 1000 ML 1,000 ML ONE ×2 (19:09→21:36)
[2019-09-05] MEDS: Sodium Chloride 0.9% 1000 ML 1,000 ML IV SCH ×2 (19:10→21:47)
[2019-09-05 19:57] LABS: Appearance CLEAR (CLEAR); Bilirubin NEGATIVE (NEGATIVE); Blood NEGATIVE Ery/ul (0-5); Glucose NEGATIVE (NEGATIVE); Ketones TRACE (NEGATIVE); Leukocyte Esterase NEGATIVE (NEGATIVE); Mucus SLIGHT /HPF (NEGATIVE); Nitrite NEGATIVE (NEGATIVE); Protein,Urine Dip NEGATIVE (Negative); Specific Gravity 1.017 (1.005-1.025); Urobilinogen NEGATIVE mg/dL (0-1)
[2019-09-05 20:08] LABS: ALBUMIN 3.6 g/dL (3.5-5.0); ALKALINE PHOSPHATASE 68 U/L (38-126); ANION GAP 15.1 MEQ/L (5-15); BLOOD UREA NITROGEN 21 mg/dL (9-20); CHLORIDE 96 mmol/L (98-107); Calcium 8.9 mg/dL (8.4-10.2); Carbon Dioxide 29 mmol/L (22-30); Creatinine 1 1.13 mg/dL (0.66-1.25); Glucose 117 mg/dL (74-106); MAGNESIUM 1.7 mg/dL (1.6-2.3); SGOT/AST 19 U/L (17-59); SGPT/ALT 9 U/L (0-50); SODIUM 138 mmol/L (137-145); TSH, 3RD Generation 0.894 mIU/L (0.47-4.68); Total Protein 6.9 g/dL (6.3-8.2)
[2019-09-05] MEDS ORDERED: Ecotrin 325 MG PO STA (20:20)
[2019-09-05] MEDS ORDERED: Klor Con 10 MEQ PO ONE ×2 (20:22→21:36)
[2019-09-05] MEDS ORDERED: POTASSIUM CHLORIDE 20 mEq IN WATER 100ML 20 MEQ/100 ML BAG IV ONE ×2 (20:46→23:02)
[2019-09-05] MEDS ORDERED: MORPHINE SULFATE 10 MG/ML IV STA (21:17)
[2019-09-05] MEDS ORDERED: BABY ASPIRIN 81 MG CHEW ONE (21:35)
[2019-09-05] MEDS ORDERED: MORPHINE SULFATE 2 MG INJ ONE (21:36)
[2019-09-05] MEDS ORDERED: POTASSIUM CHLORIDE 20 mEq IN WATER 100ML 100 ML IV ONE (21:36)
[2019-09-05] MEDS ORDERED: MORPHINE SULFATE 2 MG INJ IV ONE (21:39)
[2019-09-05] MEDS ORDERED: BABY ASPIRIN 81 MG CHEW PO ONE (21:39)
[2019-09-05] MEDS ORDERED: Zofran 4 MG/2 ML VIAL IV PRN (23:02)
[2019-09-05] MEDS ORDERED: TYLENOL 325 MG PO PRN (23:02)
[2019-09-06 04:23] LABS: Absolute Neutrophil Ct (ANC) 7.38 (1.4-6.9); BASOPHIL % 0.2 % (0.0-0.4); Basophil (Absolute #) 0.02 (0-0.4); Eosinophil % 2.2 % (0.00-5.0); Eosinophil (Absolute #) 0.24 (0-0.5); Hematocrit 29.6 % (42-50); Lymphocyte (Absolute #) 2.32 (1.0-4.6); Lymphocytes % 21.1 % (24.0-44.0); Mean Corpuscular Hemoglobin 30.4 pg (26-32); Mean Corpuscular Hgb Concent. 33.8 g/dl (32-36); Mean Platelet Volume 8.9 fl (7.5-11.0); Monocyte (Absolute #) 1.04 (0.0-1.3); Monocytes % 9.5 % (0.0-12.0); Platelet Count 209 K/mm3 (150-450); Red Blood Count 3.29 M/mm3 (4.1-5.6); Red Cell Distribution Width 16.1 % (11.5-14.0)
[2019-09-06 04:38] LABS: ALBUMIN 3.3 g/dL (3.5-5.0); ALKALINE PHOSPHATASE 64 U/L (38-126); ANION GAP 13.5 MEQ/L (5-15); BLOOD UREA NITROGEN 18 mg/dL (9-20); CHLORIDE 97 mmol/L (98-107); Calcium 8.5 mg/dL (8.4-10.2); Carbon Dioxide 30 mmol/L (22-30); Creatinine 1 1.02 mg/dL (0.66-1.25); Glucose 96 mg/dL (74-106); SGOT/AST 18 U/L (17-59); SGPT/ALT 9 U/L (0-50); SODIUM 139 mmol/L (137-145); Total Protein 6.6 g/dL (6.3-8.2)
[2019-09-06 04:45] LABS: Potassium 2.4 mmol/L (3.5-5.1)
[2019-09-06] MEDS: POTASSIUM CHLORIDE 20 mEq IN WATER 100ML 20 MEQ/100 ML BAG IV SCH ×6 (05:16→23:24)
--- NOTE | 2019-09-06 08:34 | XRAY ---
Indication: Altered mental status. Multiple contiguous axial images obtained through the head without contrast. Comparison: None Age-appropriate global atrophy and mild periventricular degenerative micro-ischemia bilaterally. No acute intracranial hemorrhage, abnormal extra-axial fluid collection, or mass effect. Fourth ventricle is midline without hydrocephalus. Bony calvarium intact. Minimal mucosal thickening left maxillary sinus. There is near complete opacification of the right middle ear and right mastoid air cells presumed inflammatory. Previous left mastoidectomy. Impression: Nonacute senile brain. Opacification of the right middle ear and right mastoid air cells presumed inflammatory. Minimal paranasal sinus disease.
--- NOTE | 2019-09-06 08:51 | XRAY ---
Indication: Altered mental status. Comparison: December 06, 2018. Portable chest less inflated crowding the lung bases without focal infiltrate, consolidation, or large effusion. Heart is not enlarged. Bony thorax intact. No new/acute findings.
--- NOTE | 2019-09-06 08:53 | XRAY ---
Indication: Pain. Comparison: None 2 nonweightbearing views of the right foot demonstrate mild osteopenia, mild midfoot degenerative changes, small plantar heel spur, and minimal lower leg vascular calcifications. No other bony, articular, or soft tissue abnormalities.
--- NOTE | 2019-09-06 08:55 | XRAY ---
Indication: Pain. Comparison: None 2 nonweightbearing views of the left foot demonstrates mild osteopenia, small plantar heel spur, and minimal lower leg vascular calcifications. No other bony, articular, or soft tissue abnormalities.
[2019-09-06] MEDS: MORPHINE SULFATE 2 MG INJ IV PRN ×2 (09:04→15:44)
--- NOTE | 2019-09-06 09:41 | PCM.HP ---
History of Present Illness - Chief Complaint Chief Complaint: Elevated troponins, hypokalemia, bilat foot pain History of Present Illness: is a 88 year old male who reported to the ER with severe eva foot and ankle pain, has had similar episodes with gout flares in the past, he has dementia and also presented with hypokalemia, family reports he has been compliant with home potassium. - Review of Systems Constitutional: No Fever, No Chills Respiratory: No Cough, No Short Of Breath Cardiac: No Chest Pain, No Edema, No Syncope Musculoskeletal: Joint Pain Skin: No Rash All Other Systems: Reviewed and Negative Medications & Allergies Home Medications: Home Medication List Indapamide 2.5 mg PO DAILY 12/12/14 [History Confirmed 09/05/19] Metoprolol Tartrate 25 mg PO DAILY 12/12/14 [History Confirmed 09/05/19] Gabapentin 300 mg PO QID 11/13/18 [History Confirmed 09/05/19] Potassium Chloride 10 Meq Tab* [Klor Con 10 MEQ] 10 meq PO DAILY #30 tab [Rx Confirmed 09/05/19] [place]-3/Dha/Epa/Fish Oil [[place] 3 500 Softgel] 1 each PO DAILY 07/05/19 [ History Confirmed 09/05/19] Aspirin [Aspir-Low] 81 mg PO DAILY 07/09/19 [History Confirmed 09/05/19] Non-Formulary Drug [Non-Formulary Item] 1 each PO DAILY 07/09/19 [History Confirmed 09/05/19] Non-Formulary Drug [Non-Formulary Item] 1 each PO DAILY 07/09/19 [History Confirmed 09/05/19] Non-Formulary Drug [Non-Formulary Item] 1 each PO DAILY 07/09/19 [History Confirmed 09/05/19] Non-Formulary Drug [Non-Formulary Item] 1 each PO DAILY 07/09/19 [History Confirmed 09/05/19] Allopurinol 300 mg [Zyloprim 300 mg] 300 mg PO DAILY #30 tablet 07/12/19 [ Rx Confirmed 09/05/19] Hydrocodone/Acetaminophen [Hydrocodone-Acetamin 5-325 mg] 1 tab PO BID PRN PRN 09/05/19 [History Confirmed 01/21/20] Allergies/Adverse Reactions: Allergies Allergy/AdvReac Type Severity Reaction Status Date / Time No Known Drug Allergies Allergy Verified 09/05/19 18:24 - Past Medical History Past Medical History: Yes Neurological History: No Pertinent History ENT History: No Pertinent History Cardiac History: Hypertension Respiratory History: No Pertinent History Endocrine Medical History: No Pertinent History Musculoskelatal History: Arthritis, Degenerative Disk Disease GI Medical History: No Pertinent History History: No Pertinent History Pyscho-Social History: No Pertinent History Male Reproductive Disorders: No Pertinent History Comment: BACK PAIN, Abdominal aortic aneurysm. hypokalemia, some confusion - Past Surgical History Past Surgical History: Yes Neuro Surgical History: No Pertinent History Cardiac History: No Pertinent History Respiratory Surgery: No Pertinent History GI Surgical History: Cholecystectomy, Other Genitourinary Surgical Hx: No Pertinent History Musculskeletal Surgical Hx: Orthopedic Surgery Male Surgical History: No Pertinent History Other Surgical History: back surgery, EGD w/ dilitation, bilateral knee surgeries-repairs on minicus, VEDA - Social History Smoking Status: Former smoker How long have you smoked: 65 years Exposure to second hand smoke: No Alcohol: Rarely Drug Use: none - Physical Exam Vital Signs: Vital Signs - 24 hr Temp Pulse Resp BP Pulse Ox 09/06/19 06:51 99.0 F 82 18 131/61 95 09/06/19 04:00 98.1 F 78 20 138/63 98 09/05/19 23:30 98.3 F 81 20 143/66 95 09/05/19 21:56 79 120/58 95 09/05/19 21:37 79 111/59 96 09/05/19 21:22 93 L 09/05/19 19:21 91 H 16 112/80 95 09/05/19 18:14 98.8 F 92 H 20 131/63 93 L General Appearance: no apparent distress, other (very hard of hearing) Neurologic Exam: alert, cooperative, 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, sensation nml, No motor deficits, No sensory deficit, No agitation, No motor weakness, No facial droop, No slurred speech Eye Exam: PERRL/EOMI, eyes nml inspection Respiratory Exam: normal breath sounds, lungs clear, No respiratory distress Cardiovascular Exam: regular rate/rhythm, normal heart sounds, normal peripheral pulses Gastrointestinal/Abdomen Exam: soft, normal bowel sounds, No tenderness, No mass Extremity Exam: other (no obvious swelling or redness to lower feet, very sensitive to touch left>right) Results - Labs Lab/Micro Results: Lab Results-Last 24 Hours 09/05/19 09/05/19 09/05/19 Range/Units 18:36 18:41 18:45 WBC (4.0-10.5) K/mm3 RBC (4.1-5.6) M/mm3 Hgb (12.5-18.0) gm/dl Hct (42-50) % MCV (78-100) fl MCH (26-32) pg MCHC (32-36) g/dl RDW (11.5-14.0) % Plt Count (150-450) K/mm3 MPV (7.5-11.0) fl Gran % (36.0-66.0) % Eos # (Auto) (0-0.5) Absolute Lymphs (auto) (1.0-4.6) Absolute Monos (auto) (0.0-1.3) Lymphocytes % (24.0-44.0) % Monocytes % (0.0-12.0) % Eosinophils % (0.00-5.0) % Basophils % (0.0-0.4) % Absolute Granulocytes (1.4-6.9) Basophils # (0-0.4) Sodium 138 (137-145) mmol/L Potassium 2.0 L* (3.5-5.1) mmol/L Chloride 96 L (98-107) mmol/L Carbon Dioxide 29 (22-30) mmol/L Anion Gap 15.1 H (5-15) MEQ/L BUN 21 H (9-20) mg/dL Creatinine 1.13 (0.66-1.25) mg/dL Estimated GFR > 60.0 ML/MIN Glucose 117 H (74-106) mg/dL Calcium 8.9 (8.4-10.2) mg/dL Magnesium 1.7 (1.6-2.3) mg/dL Total Bilirubin 1.10 (0.2-1.3) mg/dL AST 19 (17-59) U/L ALT 9 (0-50) U/L Alkaline Phosphatase 68 (38-126) U/L Troponin I 0.040 H* (0.000-0.034) ng/mL Serum Total Protein 6.9 (6.3-8.2) g/dL Albumin 3.6 (3.5-5.0) g/dL TSH 3rd Generation 0.894 (0.47-4.68) mIU/L Urine Color YELLOW (YELLOW) Urine Appearance CLEAR (CLEAR) Urine pH 5.0 (5-6) Ur Specific [place] 1.017 (1.005-1.025) Urine Protein NEGATIVE (Negative) Urine Ketones TRACE (NEGATIVE) Urine Blood NEGATIVE (0-5) Sanjay/ul Urine Nitrite NEGATIVE (NEGATIVE) Urine Bilirubin NEGATIVE (NEGATIVE) Urine Urobilinogen NEGATIVE (0-1) mg/dL Ur Leukocyte Esterase NEGATIVE (NEGATIVE) Urine WBC (Auto) NONE (0-5) /HPF Urine RBC (Auto) NONE (0-2) /HPF U Epithel Cells (Auto) NONE (FEW) /HPF Urine Bacteria (Auto) NONE (NEGATIVE) /HPF Urine Mucus (Auto) SLIGHT (NEGATIVE) /HPF Urine Culture Reflexed NO (NO) Urine Glucose NEGATIVE (NEGATIVE) mg/dL 09/05/19 09/06/19 09/06/19 Range/Units 21:19 00:38 04:28 WBC 11.0 H (4.0-10.5) K/mm3 RBC 3.29 L (4.1-5.6) M/mm3 Hgb 10.0 L (12.5-18.0) gm/dl Hct 29.6 L (42-50) % MCV 90.0 (78-100) fl MCH 30.4 (26-32) pg MCHC 33.8 (32-36) g/dl RDW 16.1 H (11.5-14.0) % Plt Count 209 (150-450) K/mm3 MPV 8.9 (7.5-11.0) fl Gran % 67.0 H (36.0-66.0) % Eos # (Auto) 0.24 (0-0.5) Absolute Lymphs (auto) 2.32 (1.0-4.6) Absolute Monos (auto) 1.04 (0.0-1.3) Lymphocytes % 21.1 L (24.0-44.0) % Monocytes % 9.5 (0.0-12.0) % Eosinophils % 2.2 (0.00-5.0) % Basophils % 0.2 (0.0-0.4) % Absolute Granulocytes 7.38 H (1.4-6.9) Basophils # 0.02 (0-0.4) Sodium (137-145) mmol/L Potassium (3.5-5.1) mmol/L Chloride (98-107) mmol/L Carbon Dioxide (22-30) mmol/L Anion Gap (5-15) MEQ/L BUN (9-20) mg/dL Creatinine (0.66-1.25) mg/dL Estimated GFR ML/MIN Glucose (74-106) mg/dL Calcium (8.4-10.2) mg/dL Magnesium (1.6-2.3) mg/dL Total Bilirubin (0.2-1.3) mg/dL AST (17-59) U/L ALT (0-50) U/L Alkaline Phosphatase (38-126) U/L Troponin I 0.038 H* 0.046 H* (0.000-0.034) ng/mL Serum Total Protein (6.3-8.2) g/dL Albumin (3.5-5.0) g/dL TSH 3rd Generation (0.47-4.68) mIU/L Urine Color (YELLOW) Urine Appearance (CLEAR) Urine pH (5-6) Ur Specific [place] (1.005-1.025) Urine Protein (Negative) Urine Ketones (NEGATIVE) Urine Blood (0-5) Sanjay/ul Urine Nitrite (NEGATIVE) Urine Bilirubin (NEGATIVE) Urine Urobilinogen (0-1) mg/dL Ur Leukocyte Esterase (NEGATIVE) Urine WBC (Auto) (0-5) /HPF Urine RBC (Auto) (0-2) /HPF U Epithel Cells (Auto) (FEW) /HPF Urine Bacteria (Auto) (NEGATIVE) /HPF Urine Mucus (Auto) (NEGATIVE) /HPF Urine Culture Reflexed (NO) Urine Glucose (NEGATIVE) mg/dL 09/06/19 09/06/19 Range/Units 04:28 04:28 WBC (4.0-10.5) K/mm3 RBC (4.1-5.6) M/mm3 Hgb (12.5-18.0) gm/dl Hct (42-50) % MCV (78-100) fl MCH (26-32) pg MCHC (32-36) g/dl RDW (11.5-14.0) % Plt Count (150-450) K/mm3 MPV (7.5-11.0) fl Gran % (36.0-66.0) % Eos # (Auto) (0-0.5) Absolute Lymphs (auto) (1.0-4.6) Absolute Monos (auto) (0.0-1.3) Lymphocytes % (24.0-44.0) % Monocytes % (0.0-12.0) % Eosinophils % (0.00-5.0) % Basophils % (0.0-0.4) % Absolute Granulocytes (1.4-6.9) Basophils # (0-0.4) Sodium 139 (137-145) mmol/L Potassium 2.4 L* (3.5-5.1) mmol/L Chloride 97 L (98-107) mmol/L Carbon Dioxide 30 (22-30) mmol/L Anion Gap 13.5 (5-15) MEQ/L BUN 18 (9-20) mg/dL Creatinine 1.02 (0.66-1.25) mg/dL Estimated GFR > 60.0 ML/MIN Glucose 96 (74-106) mg/dL Calcium 8.5 (8.4-10.2) mg/dL Magnesium (1.6-2.3) mg/dL Total Bilirubin 1.00 (0.2-1.3) mg/dL AST 18 (17-59) U/L ALT 9 (0-50) U/L Alkaline Phosphatase 64 (38-126) U/L Troponin I 0.047 H* (0.000-0.034) ng/mL Serum Total Protein 6.6 (6.3-8.2) g/dL Albumin 3.3 L (3.5-5.0) g/dL TSH 3rd Generation (0.47-4.68) mIU/L Urine Color (YELLOW) Urine Appearance (CLEAR) Urine pH (5-6) Ur Specific [place] (1.005-1.025) Urine Protein (Negative) Urine Ketones (NEGATIVE) Urine Blood (0-5) Sanjay/ul Urine Nitrite (NEGATIVE) Urine Bilirubin (NEGATIVE) Urine Urobilinogen (0-1) mg/dL Ur Leukocyte Esterase (NEGATIVE) Urine WBC (Auto) (0-5) /HPF Urine RBC (Auto) (0-2) /HPF U Epithel Cells (Auto) (FEW) /HPF Urine Bacteria (Auto) (NEGATIVE) /HPF Urine Mucus (Auto) (NEGATIVE) /HPF Urine Culture Reflexed (NO) Urine Glucose (NEGATIVE) mg/dL - Radiology Impressions Radiology Exams & Impressions: Radiology Procedures Category Date Time Status CHEST 1 VIEW (PORTABLE) Stat Exams 09/05/19 18:41 Completed FOOT (2 VIEWS) Stat Exams 09/05/19 18:41 Completed FOOT (2 VIEWS) Stat Exams 09/05/19 18:41 Completed HEAD WITHOUT CONTRAST [CT] Stat Exams 09/05/19 18:42 Completed Assessment/Plan (1) Hypokalemia Current Visit: Yes Status: Acute Assessment & Plan: will replace, has frequent diarrhea according to family so might be related to gi losses Code(s): E87.6 - HYPOKALEMIA (2) Elevated troponin Current Visit: Yes Status: Acute Assessment & Plan: no chest pain, nothing acute on ekg, will monitor Code(s): R79.89 - OTHER SPECIFIED ABNORMAL FINDINGS OF BLOOD CHEMISTRY (3) Foot pain, bilateral Current Visit: Yes Status: Acute Assessment & Plan: uric acid level pending, add prednisone Code(s): M79.671 - PAIN IN RIGHT FOOT; M79.672 - PAIN IN LEFT FOOT
[2019-09-06] MEDS ORDERED: NORCO 5/325 MG PO PRN (09:54)
[2019-09-06] MEDS ORDERED: INDAPAMIDE 2.5 MG PO SCH (10:00)
[2019-09-06] MEDS ORDERED: Klor Con 10 MEQ PO SCH (10:00)
[2019-09-06] MEDS ORDERED: MEDICATION INTERVENTION MC SCH (10:15)
[2019-09-06] MEDS: Lopressor 25MG Tab PO SCH (10:16)
[2019-09-06] MEDS: NEURONTIN 300 MG PO SCH ×4 (10:16→21:06)
[2019-09-06] MEDS: ECOTRIN 81 MG PO SCH (10:16)
[2019-09-06] MEDS: Klor Con 10 MEQ PO SCH ×2 (10:16→21:06)
[2019-09-06] MEDS: DELTASONE 20 MG PO SCH ×2 (10:16→21:06)
[2019-09-06] MEDS: ZYLOPRIM 300 MG PO SCH (10:16)
[2019-09-06] MEDS: Sodium Chloride 0.9% 1000 ML 1,000 ML IV SCH (13:40)
[2019-09-06] MEDS ORDERED: xanAX 0.25 MG PO PRN (15:00)
[2019-09-07] MEDS ORDERED: K-LYTE 25 MEQ PO ONE (08:38)
--- NOTE | 2019-09-07 08:42 | PCM.NOTE ---
Date and Time: 09/07/19 0839 Subjective Assessment: patient reports the pain in his feet is much better today, he was sleeping on arrival. no other problems or concerns. Objective Exam General Appearance: no apparent distress Neurologic Exam: alert, cooperative Respiratory Exam: normal breath sounds, lungs clear, No respiratory distress Cardiovascular Exam: regular rate/rhythm, normal heart sounds Gastrointestinal/Abdomen Exam: soft, No tenderness, No mass Extremity Exam: normal inspection, No tenderness OBJECTIVE DATA Vital Signs: Vital Signs - 24 hr Temp Pulse Resp BP Pulse Ox 09/07/19 07:18 96.5 F 61 18 130/63 94 L 09/07/19 04:00 98.2 F 57 L 16 114/55 94 L 09/06/19 23:56 97.9 F 66 20 135/58 95 09/06/19 20:00 98.4 F 68 20 110/57 94 L 09/06/19 16:00 98.4 F 77 18 126/60 95 09/06/19 12:00 98.4 F 70 18 125/60 96 Pain Assessment - Last Documented Pain Intensity [Right Foot] 6 Pain Intensity 0 Pain Scale Used 0-10 Pain Scale Intake and Output: Intake & Output 09/04/19 09/05/19 09/06/19 09/07/19 11:59 11:59 11:59 11:59 Intake Total 950 2549 Balance 950 2549 Weight 83.2 kg Lab Results: Lab Results-Last 24 Hours 09/06/19 09/06/19 09/06/19 Range/Units 04:00 12:30 20:24 Potassium 2.6 L* 2.8 L* (3.5-5.1) mmol/L Uric Acid 4.9 (3.5-7.2) mg/dL 09/07/19 Range/Units 03:35 Potassium 3.1 L (3.5-5.1) mmol/L Uric Acid (3.5-7.2) mg/dL Radiology Exams: Radiology Procedures Category Date Time Status CHEST 1 VIEW (PORTABLE) Stat Exams 09/05/19 18:41 Completed FOOT (2 VIEWS) Stat Exams 09/05/19 18:41 Completed FOOT (2 VIEWS) Stat Exams 09/05/19 18:41 Completed HEAD WITHOUT CONTRAST [CT] Stat Exams 09/05/19 18:42 Completed Assessment/Plan (1) Hypokalemia Current Visit: Yes Status: Acute Assessment & Plan: replacing, likely GI loss as cause Code(s): E87.6 - HYPOKALEMIA (2) Elevated troponin Current Visit: Yes Status: Acute Assessment & Plan: minimal elevation, no evidence of UT. likely related to stress/renal function etc Code(s): R79.89 - OTHER SPECIFIED ABNORMAL FINDINGS OF BLOOD CHEMISTRY (3) Foot pain, bilateral Current Visit: Yes Status: Acute Assessment & Plan: improving with prednisone, uric acid 4.9 Code(s): M79.671 - PAIN IN RIGHT FOOT; M79.672 - PAIN IN LEFT FOOT
[2019-09-07] MEDS: Sodium Chloride 0.9% 1000 ML 1,000 ML IV SCH (09:37)
[2019-09-07] MEDS: ZYLOPRIM 300 MG PO SCH (09:38)
[2019-09-07] MEDS: ECOTRIN 81 MG PO SCH (09:38)
[2019-09-07] MEDS: Lopressor 25MG Tab PO SCH (09:39)
[2019-09-07] MEDS: NEURONTIN 300 MG PO SCH ×4 (09:39→21:06)
[2019-09-07] MEDS: DELTASONE 20 MG PO SCH ×2 (09:39→21:05)
[2019-09-07] MEDS: Klor Con 10 MEQ PO SCH ×2 (09:40→21:05)
[2019-09-07] MEDS ORDERED: PROVENTIL 2.5 MG/3 ML NEB IH PRN (09:43)
[2019-09-07] MEDS ORDERED: Magnesium Sulfate 1 GM/2 ML VIAL IV ONE (09:45)
[2019-09-08 04:26] VITALS: O2SAT 94
[2019-09-08 04:43] LABS: Absolute Neutrophil Ct (ANC) 13.11 (1.4-6.9); BASOPHIL % 0.1 % (0.0-0.4); Basophil (Absolute #) 0.01 (0-0.4); Eosinophil % 0.1 % (0.00-5.0); Eosinophil (Absolute #) 0.01 (0-0.5); Hematocrit 27.6 % (42-50); Lymphocyte (Absolute #) 1.23 (1.0-4.6); Lymphocytes % 8.2 % (24.0-44.0); Mean Cell Volume 91.1 fl (78-100); Mean Corpuscular Hemoglobin 29.7 pg (26-32); Mean Corpuscular Hgb Concent. 32.6 g/dl (32-36); Mean Platelet Volume 9.1 fl (7.5-11.0); Monocyte (Absolute #) 0.56 (0.0-1.3); Monocytes % 3.8 % (0.0-12.0); Neutrophil % 87.8 % (36.0-66.0); Platelet Count 260 K/mm3 (150-450); Red Blood Count 3.03 M/mm3 (4.1-5.6); Red Cell Distribution Width 15.9 % (11.5-14.0); White Blood Count 14.9 K/mm3 (4.0-10.5)
[2019-09-08 04:48] LABS: ANION GAP 8.4 MEQ/L (5-15); BLOOD UREA NITROGEN 25 mg/dL (9-20); CHLORIDE 104 mmol/L (98-107); Calcium 8.4 mg/dL (8.4-10.2); Carbon Dioxide 29 mmol/L (22-30); Creatinine 1 0.89 mg/dL (0.66-1.25); Glucose 127 mg/dL (74-106); MAGNESIUM 1.6 mg/dL (1.6-2.3); Potassium 3.5 mmol/L (3.5-5.1); SODIUM 138 mmol/L (137-145)
[2019-09-08 05:30] LABS: TROPONIN < 0.012 ng/mL (0.000-0.034)
[2019-09-08] MEDS: Sodium Chloride 0.9% 1000 ML 1,000 ML IV SCH (07:44)
--- NOTE | 2019-09-08 08:45 | PCM.DS ---
Discharge Summary Date of Admission: 09/05/19 22:57 Admitting Physician: CRISTINA HORTA Primary Care Provider: CRISTINA HORTA Allergies Allergies No Known Drug Allergies Allergy (Verified 09/05/19 18:24) Hospital Summary - Hospital Course Hospital Course: patient was admitted with foot pain, resolved with correction of hypokalemia. has frequent loose stools according to family, has some mild underlying dementia but they are caring for him in the home. - Vitals & Intake/Output Vital Signs: Vital Signs Temperature 98.5 F 09/08/19 04:15 Pulse Rate 64 09/08/19 04:15 Respiratory Rate 18 09/08/19 04:15 Blood Pressure 116/59 09/08/19 04:15 O2 Sat by Pulse Oximetry 94 L 09/08/19 04:15 Intake & Output: Intake & Output 09/05/19 09/06/19 09/07/19 09/08/19 11:59 11:59 11:59 11:59 Intake Total 950 2789 3267 Balance 950 2789 3267 Weight 83.2 kg 83.2 kg - Lab Result Diagrams: 09/08/19 04:20 09/08/19 04:20 Lab Results-Last 24 Hrs: Lab Results-Last 24 Hours 09/08/19 09/08/19 Range/Units 04:20 04:20 WBC 14.9 H (4.0-10.5) K/mm3 RBC 3.03 L (4.1-5.6) M/mm3 Hgb 9.0 L (12.5-18.0) gm/dl Hct 27.6 L (42-50) % MCV 91.1 (78-100) fl MCH 29.7 (26-32) pg MCHC 32.6 (32-36) g/dl RDW 15.9 H (11.5-14.0) % Plt Count 260 (150-450) K/mm3 MPV 9.1 (7.5-11.0) fl Gran % 87.8 H (36.0-66.0) % Eos # (Auto) 0.01 (0-0.5) Absolute Lymphs (auto) 1.23 (1.0-4.6) Absolute Monos (auto) 0.56 (0.0-1.3) Lymphocytes % 8.2 L (24.0-44.0) % Monocytes % 3.8 (0.0-12.0) % Eosinophils % 0.1 (0.00-5.0) % Basophils % 0.1 (0.0-0.4) % Absolute Granulocytes 13.11 H (1.4-6.9) Basophils # 0.01 (0-0.4) Sodium 138 (137-145) mmol/L Potassium 3.5 (3.5-5.1) mmol/L Chloride 104 (98-107) mmol/L Carbon Dioxide 29 (22-30) mmol/L Anion Gap 8.4 (5-15) MEQ/L BUN 25 H (9-20) mg/dL Creatinine 0.89 (0.66-1.25) mg/dL Estimated GFR > 60.0 ML/MIN Glucose 127 H (74-106) mg/dL Calcium 8.4 (8.4-10.2) mg/dL Magnesium 1.6 (1.6-2.3) mg/dL Troponin I < 0.012 (0.000-0.034) ng/mL - Procedures and Test Procedures and Tests throughout Hospitalization: Therapy Orders & Screens 09/05/19 23:02 EKG REPEAT IN AM Comment: Discharge Exam General Appearance: no apparent distress, alert Neurologic Exam: alert, oriented x 3, cooperative Respiratory Exam: normal breath sounds, lungs clear, No respiratory distress Cardiovascular Exam: regular rate/rhythm, normal heart sounds Gastrointestinal/Abdomen Exam: soft, No tenderness, No mass Final Diagnosis/Problem List - Final Discharge Diagnosis/Problem (1) Hypokalemia Current Visit: Yes Status: Acute Code(s): E87.6 - HYPOKALEMIA (2) Elevated troponin Current Visit: Yes Status: Acute Code(s): R79.89 - OTHER SPECIFIED ABNORMAL FINDINGS OF BLOOD CHEMISTRY (3) Foot pain, bilateral Current Visit: Yes Status: Acute Code(s): M79.671 - PAIN IN RIGHT FOOT; M79.672 - PAIN IN LEFT FOOT - Discharge Disposition: Home, Self-Care Condition: Stable Prescriptions: New Potassium Chloride 20 meq PO DAILY #30 tab.er.prt Continue Metoprolol Tartrate 25 mg PO DAILY Indapamide 2.5 mg PO DAILY Gabapentin 300 mg PO QID [place]-3/Dha/Epa/Fish Oil [[place] 3 500 Softgel] 1 each PO DAILY Aspirin [Aspir-Low] 81 mg PO DAILY Non-Formulary Drug [Non-Formulary Item] 1 each PO DAILY Non-Formulary Drug [Non-Formulary Item] 1 each PO DAILY Non-Formulary Drug [Non-Formulary Item] 1 each PO DAILY Non-Formulary Drug [Non-Formulary Item] 1 each PO DAILY Allopurinol 300 mg [Zyloprim 300 mg] 300 mg PO DAILY #30 tablet Hydrocodone/Acetaminophen [Hydrocodone-Acetamin 5-325 mg] 1 tab PO BID PRN PRN PRN Reason: Pain Discontinued Potassium Chloride 10 Meq Tab* [Klor Con 10 MEQ] 10 meq PO DAILY #30 tab Follow up with: CRISTINA HORTA MD [Primary Care Provider] - 1 Week
[2019-09-08] MEDS: ZYLOPRIM 300 MG PO SCH (09:29)
[2019-09-08] MEDS: ECOTRIN 81 MG PO SCH (09:29)
[2019-09-08] MEDS: NEURONTIN 300 MG PO SCH (09:29)
[2019-09-08] MEDS: Lopressor 25MG Tab PO SCH (09:29)
[2019-09-08] MEDS: DELTASONE 20 MG PO SCH (09:29)
[2019-09-08] MEDS: Klor Con 10 MEQ PO SCH (09:30)
[2019-09-08 11:27] VITALS: BP 118/69; PULSE 90
== END 2019-09-08 10:28 | disposition home or self-care (01) | DRG 641 ==
LOC: ED 17:52 → MED SURG 22:57
PROVIDERS: ADMIT Family Medicine; ATTEND Family Medicine
DX: E87.6 Hypokalemia (principal); M79.672 Pain in left foot; M79.671 Pain in right foot; R41.0 Disorientation, unspecified; R79.89 Other specified abnormal findings of blood chemistry; F03.90 Unspecified dementia, unspecified severity, without behavioral disturbance, psychotic disturbance, mood disturbance, and anxiety; I10 Essential (primary) hypertension; H70.91 Unspecified mastoiditis, right ear; Z79.899 Other long term (current) drug therapy
CPT/HCPCS: 36000; 36415; 70450; 71045; 73620; 80048; 80053; 81001; 83735; 84132; 84443; 84484; 84550; 85025; 93005; 94760; 96360; 96365; 96374; 99284; J2270; J3480; A9270-GY

== ENCOUNTER 2019-12-15 08:20 | Inpatient (IN) | payer MEDICARE ==
[2019-12-15] MEDS ORDERED: Sodium Chloride 0.9% 1000 ML 1,000 ML IV STA ×2 (08:27→08:59)
[2019-12-15] MEDS ORDERED: Zithromax 500 MG/ 250 ML NaCl Premix 500 MG/250 ML IVPB IV STA (08:27)
[2019-12-15] MEDS ORDERED: ROCEPHIN 1 Gm-D5w 50 ml Bag** 1 G/50 ML IVPB IV STA (08:27)
[2019-12-15 08:42] LABS: Absolute Neutrophil Ct (ANC) 12.73 (1.4-6.9); BASOPHIL % 0.2 % (0.0-0.4); Basophil (Absolute #) 0.03 (0-0.4); Eosinophil % 0.1 % (0.00-5.0); Eosinophil (Absolute #) 0.02 (0-0.5); Hematocrit 42.4 % (42-50); Lymphocytes % 11.4 % (24.0-44.0); Mean Cell Volume 96.4 fl (78-100); Mean Corpuscular Hemoglobin 29.5 pg (26-32); Mean Corpuscular Hgb Concent. 30.7 g/dl (32-36); Mean Platelet Volume 9.9 fl (7.5-11.0); Monocyte (Absolute #) 1.21 (0.0-1.3); Monocytes % 7.7 % (0.0-12.0); Neutrophil % 80.6 % (36.0-66.0); Platelet Count 313 K/mm3 (150-450); Red Cell Distribution Width 15.4 % (11.5-14.0); White Blood Count 15.8 K/mm3 (4.0-10.5)
[2019-12-15 08:44] LABS: INR 1.21 (0.8-3.0); PROTIME 13.7 SECONDS (8.83-12.87)
[2019-12-15 08:47] LABS: PTT 38.2 SECONDS (24.1-36.1)
[2019-12-15] MEDS ORDERED: Sodium Chloride 0.9% 1000 ML 2,000 ML ONE (08:47)
--- NOTE | 2019-12-15 08:47 | ERPHSYRPT ---
- History of Present Illness Time Seen by Provider: 12/15/19 08:25 Patient Subjective Stated Complaint: Pt is not communicating at this time, unresponsive to painful and verbal stimuli. Triage Nursing Assessment: Pt presents to ER by EMS. EMS dispatched for 89 year old confusion when they arrived they found patient in obvious respiratory distress. Pt was being ventilated with BVM when arrived to ER. Pt was taken to Room 7. ER Staff donned in appropriate PPE rule out COVID 19. Pt was transferred to hospital bed and ER Staff took over patient care. RT and Pharmacy called to ER. Physician History: 89 yo w male extreme respiratory distress. Unable to give hx. EMS called for confusion and SOA. Family contacted nephew (POA) works at the [employer]. No known COVID exposure. Allergies/Adverse Reactions: No Known Drug Allergies Allergy (Verified 09/05/19 18:24) Home Medications: Indapamide 2.5 mg PO DAILY 12/12/14 [History] Metoprolol Tartrate 25 mg PO DAILY 12/12/14 [History] Gabapentin 300 mg PO QID 11/13/18 [History] [place]-3/Dha/Epa/Fish Oil [[place] 3 500 Softgel] 1 each PO DAILY 07/05/19 [History ] Aspirin [Aspir-Low] 81 mg PO DAILY 07/09/19 [History] Non-Formulary Drug [Non-Formulary Item] 1 each PO DAILY 07/09/19 [History] Non-Formulary Drug [Non-Formulary Item] 1 each PO DAILY 07/09/19 [History] Non-Formulary Drug [Non-Formulary Item] 1 each PO DAILY 07/09/19 [History] Non-Formulary Drug [Non-Formulary Item] 1 each PO DAILY 07/09/19 [History] Hydrocodone/Acetaminophen [Hydrocodone-Acetamin 5-325 mg] 1 tab PO BID PRN PRN 09/05/19 [History] Hx Tetanus, Diphtheria Vaccination/Date Given: No (unknown) Hx Influenza Vaccination/Date Given: No (unknown) Hx Pneumococcal Vaccination/Date Given: No (unknown) Immunizations Up to Date: No (unknown) Travel Risk - International Travel Have you traveled outside of the country in past 3 weeks: No (unknown) Have you or anyone close to you been diagnosed with or: No Do your reside in a community with a known COVID-19 case?: No - Coronavirus Screening Has patient experienced Coronavirus symptoms: No - Review of Systems All Other Systems: Unable due to condition - Past Medical History Pertinent Past Medical History: Yes Neurological History: No Pertinent History ENT History: No Pertinent History Cardiac History: Hypertension Respiratory History: No Pertinent History Endocrine Medical History: No Pertinent History Musculoskeletal History: Arthritis, Degenerative Disk Disease GI Medical History: No Pertinent History History: No Pertinent History Psycho-Social History: No Pertinent History Male Reproductive Disorders: No Pertinent History Other Medical History: BACK PAIN, Abdominal aortic aneurysm. hypokalemia, some confusion - Past Surgical History Past Surgical History: Yes Neuro Surgical History: No Pertinent History Cardiac: No Pertinent History Respiratory: No Pertinent History Gastrointestinal: Cholecystectomy, Other Genitourinary: No Pertinent History Musculoskeletal: Orthopedic Surgery Male Surgical History: No Pertinent History Other Surgical History: back surgery, EGD w/ dilitation, bilateral knee surgeries-repairs on minicus, VEDA - Social History Smoking Status: Unknown if ever smoked How long have you smoked: 65 years Exposure to second hand smoke: No Drug Use: none Patient Lives Alone: No - Nursing Vital Signs Nursing Vital Signs: Initial Vital Signs Temperature 97.9 F 12/15/19 08:22 Pulse Rate 102 H 12/15/19 08:22 Respiratory Rate 16 12/15/19 08:22 Blood Pressure 65/52 12/15/19 08:22 Pain Scale Pain Intensity 0 - Physical Exam General Appearance: severe distress Eye Exam: PERRL/EOMI Ears, Nose, Throat Exam: normal ENT inspection Neck Exam: normal inspection, full range of motion, No JVD Respiratory Exam: diminished breath sounds Cardiovascular/Chest Exam: tachycardia Abdominal/Gastrointestinal Exam: soft, normal bowel sounds Extremity Exam: swelling Peripheral Pulses Exam: carotid (R): 2+, carotid (L): 2+ Lymphatic Exam: No adenopathy SpO2 Interpretation: borderline oxygenation, hypoxic, ABG ordered O2 Delivery: Nasal Cannula - Course Nursing assessment & vital signs reviewed: Yes EKG Interpreted by Me: RATE (98 first degree AV block), Left [place] Deviation, 1st degree AV Block - Radiology Exams Chest X-ray Interpretation: Teleradiologist Report, Infiltrates, Pneumonia Ordered Tests: Active Orders 24 hr Category Date Time Status Pharmacy Services Director STAT Care 12/15/19 08:28 Active EKG-ER Only STAT Care 12/15/19 08:27 Active Oxygen-ED Only NON-REBREATHER 100% Care 12/15/19 08:27 Active Pulse Oximetry (ED) STAT Care 12/15/19 08:27 Active CHEST 1 VIEW (PORTABLE) Stat Exams 12/15/19 08:28 Completed ABG [ARTERIAL BLOOD GASES] Stat Lab 12/15/19 08:33 Ordered BLOOD CULTURE Stat Lab 12/15/19 09:10 Received CBC W DIFF Stat Lab 12/15/19 08:27 Completed CMP Stat Lab 12/15/19 08:30 Completed CULTURE,URINE Stat Lab 12/15/19 09:38 Received D-DIMER QUANTITATIVE Stat Lab 12/15/19 08:27 Completed Ferritin Stat Lab 12/15/19 08:30 Completed LDH-LACTATE DEHYDROGENASE Stat Lab 12/15/19 08:30 Completed Lactic Acid Stat Lab 12/15/19 08:27 Ordered MAGNESIUM Stat Lab 12/15/19 08:30 Completed NT PRO BNP Stat Lab 12/15/19 08:30 Completed PROTIME WITH INR Stat Lab 12/15/19 08:27 Completed PTT Stat Lab 12/15/19 08:27 Completed TROPONIN Q3H Lab 12/15/19 08:30 Completed TROPONIN Q3H Lab 12/15/19 11:30 Ordered TROPONIN Q3H Lab 12/15/19 14:30 Ordered TROPONIN Q3H Lab 12/15/19 17:30 Ordered TROPONIN Q3H Lab 12/15/19 20:30 Ordered UA W/RFX UR CULTURE Stat Lab 12/15/19 09:38 Completed Peak Expiratory Flow Rate ONCE RT 12/15/19 08:27 Active Medication Summary Generic Name Dose Route Start Last Admin Trade Name Freq PRN Reason Stop Dose Admin Norepinephrine 4,000 mcg/ 504 mls @ 37.8 mls/hr 12/15/19 09:32 12/15/19 09:52 Dextrose IV 01/14/20 09:31 10 mcg/min .[id number] PRN 75.6 mls/hr SEVERE HYPOTENSION Titration Protocol 5 MCG/MIN Phenylephrine HCl 10 mg/ 251 mls @ 0 mls/hr 12/15/19 09:10 12/15/19 09:30 Dextrose IV 01/14/20 09:09 150 mcg/min .Q0M PRN 225.9 mls/hr hypotension Infusion Titrate Phenylephrine HCl 0.1 mg 12/15/19 08:47 12/15/19 09:05 Phenylephrine Hcl IV 01/14/20 08:46 0.1 mg PRN PRN Administration hypotension Discontinued Medications Generic Name Dose Route Start Last Admin Trade Name Anastasiya PRN Reason Stop Dose Admin Acetaminophen Confirm 12/15/19 08:58 [place] 650 Mg Administered 12/15/19 08:59 Dose 650 mg .ROUTE .STK-MED ONE Acetaminophen 650 mg 12/15/19 09:03 12/15/19 09:05 [place] 650 Mg UT 12/15/19 09:04 650 mg STAT ONE Administration Ceftriaxone Sodium/Dextrose 1 g in 50 mls @ 100 mls/hr 12/15/19 08:27 09:34 Rocephin 1 Gm-D5w 50 Ml Bag IV 12/15/19 08:56 Infused STAT STA Infusion Sodium Chloride 1,000 mls @ 999 mls/hr 12/15/19 08:27 12/15/19 09:33 Sodium Chloride 0.9% 1000 Ml IV 12/15/19 09:27 Infused .Q1H1M STA Infusion Azithromycin 500 mg in 250 mls @ 250 mls/hr 12/15/19 08:27 12/15/19 09:02 Zithromax 500 Mg/ 250 Ml Nacl Premix IV 12/15/19 09:26 250 mls/hr STAT STA 250 mls/hr Administration Sodium Chloride Confirm 12/15/19 08:47 Sodium Chloride 0.9% 1000 Ml Administered 12/15/19 08:48 Dose 2,000 mls @ ud .ROUTE .STK-MED ONE Sodium Chloride Confirm 12/15/19 08:51 Sodium Chloride 0.9% 100 Ml Ivpb Administered 12/15/19 08:52 Dose 100 mls @ ud IV .STK-MED ONE Azithromycin Confirm 12/15/19 08:58 Zithromax 500 Mg/ 250 Ml Nacl Premix Administered 12/15/19 08:59 Dose 500 mg in 250 mls @ ud IV .STK-MED ONE Ceftriaxone Sodium/Dextrose Confirm 12/15/19 08:59 Rocephin 1 Gm-D5w 50 Ml Bag Administered 12/15/19 09:00 Dose 1 g in 50 mls @ ud IV .STK-MED ONE Sodium Chloride 1,000 mls @ 999 mls/hr 12/15/19 08:59 12/15/19 09:03 Sodium Chloride 0.9% 1000 Ml IV 12/15/19 09:59 999 mls/hr .Q1H1M STA Administration Dextrose Confirm 12/15/19 09:10 Dextrose 5%/Water Iv Soln. 250 Ml Administered 12/15/19 09:11 Dose 250 mls @ ud IV .STK-MED ONE Phenylephrine HCl Confirm 12/15/19 08:51 Phenylephrine Hcl Administered 12/15/19 08:52 Dose 10 mg .ROUTE .STK-MED ONE Phenylephrine HCl Confirm 12/15/19 09:10 Phenylephrine Hcl Administered 12/15/19 09:11 Dose 10 mg .ROUTE .STK-MED ONE Lab/Rad Data: Laboratory Result Diagrams 12/15/19 08:27 12/15/19 08:30 Laboratory Results 12/15/19 12/15/19 12/15/19 Range/Units 09:38 09:10 08:30 WBC (4.0-10.5) K/mm3 RBC (4.1-5.6) M/mm3 Hgb (12.5-18.0) gm/dl Hct (42-50) % MCV (78-100) fl MCH (26-32) pg MCHC (32-36) g/dl RDW (11.5-14.0) % Plt Count (150-450) K/mm3 MPV (7.5-11.0) fl Gran % (36.0-66.0) % Eos # (Auto) (0-0.5) Absolute Lymphs (auto) (1.0-4.6) Absolute Monos (auto) (0.0-1.3) Lymphocytes % (24.0-44.0) % Monocytes % (0.0-12.0) % Eosinophils % (0.00-5.0) % Basophils % (0.0-0.4) % Absolute Granulocytes (1.4-6.9) Basophils # (0-0.4) PT (8.83-12.87) SECONDS INR (0.8-3.0) APTT (24.1-36.1) SECONDS D-Dimer (215-500) ng/mL Sodium (137-145) mmol/L Potassium (3.5-5.1) mmol/L Chloride (98-107) mmol/L Carbon Dioxide (22-30) mmol/L Anion Gap (5-15) MEQ/L BUN (9-20) mg/dL Creatinine (0.66-1.25) mg/dL Estimated GFR ML/MIN Glucose (74-106) mg/dL Calcium (8.4-10.2) mg/dL Magnesium (1.6-2.3) mg/dL Ferritin (17.9-464) ng/mL Total Bilirubin (0.2-1.3) mg/dL AST (17-59) U/L ALT (0-50) U/L Alkaline Phosphatase (38-126) U/L Lactate Dehydrogenase (120-246) U/L Troponin I 0.032 (0.000-0.034) ng/mL NT-Pro-B Natriuret Pep (0-1800) pg/mL Serum Total Protein (6.3-8.2) g/dL Albumin (3.5-5.0) g/dL Urine Color MILO (YELLOW) Urine Appearance CLEAR (CLEAR) Urine pH 5.0 (5-6) Ur Specific [place] 1.018 (1.005-1.025) Urine Protein NEGATIVE (Negative) Urine Ketones TRACE (NEGATIVE) Urine Blood NEGATIVE (0-5) Sanjay/ul Urine Nitrite NEGATIVE (NEGATIVE) Urine Bilirubin NEGATIVE (NEGATIVE) Urine Urobilinogen NEGATIVE (0-1) mg/dL Ur Leukocyte Esterase NEGATIVE (NEGATIVE) Urine WBC (Auto) 0-2 (0-5) /HPF Urine RBC (Auto) NONE (0-2) /HPF U Epithel Cells (Auto) RARE (FEW) /HPF Urine Bacteria (Auto) NONE (NEGATIVE) /HPF Urine Culture Reflexed ORDERED SEPARATELY (NO) Urine Glucose NEGATIVE (NEGATIVE) mg/dL Influenza Type A Ag NEGATIVE (NEGATIVE) Influenza Type B Ag NEGATIVE (NEGATIVE) RSV (PCR) NEGATIVE (Negative) 12/15/19 12/15/19 12/15/19 Range/Units 08:30 08:27 08:27 WBC 15.8 H (4.0-10.5) K/mm3 RBC 4.40 (4.1-5.6) M/mm3 Hgb 13.0 (12.5-18.0) gm/dl Hct 42.4 (42-50) % MCV 96.4 (78-100) fl MCH 29.5 (26-32) pg MCHC 30.7 L (32-36) g/dl RDW 15.4 H (11.5-14.0) % Plt Count 313 (150-450) K/mm3 MPV 9.9 (7.5-11.0) fl Gran % 80.6 H (36.0-66.0) % Eos # (Auto) 0.02 (0-0.5) Absolute Lymphs (auto) 1.80 (1.0-4.6) Absolute Monos (auto) 1.21 (0.0-1.3) Lymphocytes % 11.4 L (24.0-44.0) % Monocytes % 7.7 (0.0-12.0) % Eosinophils % 0.1 (0.00-5.0) % Basophils % 0.2 (0.0-0.4) % Absolute Granulocytes 12.73 H (1.4-6.9) Basophils # 0.03 (0-0.4) PT 13.7 H (8.83-12.87) SECONDS INR 1.21 (0.8-3.0) APTT 38.2 H (24.1-36.1) SECONDS D-Dimer 7351 H* (215-500) ng/mL Sodium 143 (137-145) mmol/L Potassium 3.2 L (3.5-5.1) mmol/L Chloride 104 (98-107) mmol/L Carbon Dioxide 24 (22-30) mmol/L Anion Gap 18.5 H (5-15) MEQ/L BUN 33 H (9-20) mg/dL Creatinine 3.01 H (0.66-1.25) mg/dL Estimated GFR 21.0 ML/MIN Glucose 132 H (74-106) mg/dL Calcium 9.3 (8.4-10.2) mg/dL Magnesium 1.8 (1.6-2.3) mg/dL Ferritin 40.8 (17.9-464) ng/mL Total Bilirubin 1.10 (0.2-1.3) mg/dL AST 21 (17-59) U/L ALT 14 (0-50) U/L Alkaline Phosphatase 58 (38-126) U/L Lactate Dehydrogenase 179 (120-246) U/L Troponin I (0.000-0.034) ng/mL NT-Pro-B Natriuret Pep 509 (0-1800) pg/mL Serum Total Protein 7.0 (6.3-8.2) g/dL Albumin 3.8 (3.5-5.0) g/dL Urine Color (YELLOW) Urine Appearance (CLEAR) Urine pH (5-6) Ur Specific [place] (1.005-1.025) Urine Protein (Negative) Urine Ketones (NEGATIVE) Urine Blood (0-5) Sanjay/ul Urine Nitrite (NEGATIVE) Urine Bilirubin (NEGATIVE) Urine Urobilinogen (0-1) mg/dL Ur Leukocyte Esterase (NEGATIVE) Urine WBC (Auto) (0-5) /HPF Urine RBC (Auto) (0-2) /HPF U Epithel Cells (Auto) (FEW) /HPF Urine Bacteria (Auto) (NEGATIVE) /HPF Urine Culture Reflexed (NO) Urine Glucose (NEGATIVE) mg/dL Influenza Type A Ag (NEGATIVE) Influenza Type B Ag (NEGATIVE) RSV (PCR) (Negative) - Progress Progress: improved Air Movement: poor Blood Culture(s) Obtained: Yes Antibiotics given: Yes Discussed with Dr.: Cervantes - Departure Departure Disposition: In-patient Admission Clinical Impression: Pneumonia, Possible covid, Altered mental status, Dehydration, Hypokalemia, Renal insufficiency, Elevated d-dimer Condition: Critical Critical Care Time: Yes Critical Care Time(excluding separately billable procedures): Critical 75-104 mins Referrals: CRISTINA HORTA MD [Primary Care Provider] -
[2019-12-15] MEDS ORDERED: PHENYLEPHRINE HCL ONE ×2 (08:51→09:10)
[2019-12-15] MEDS ORDERED: Sodium Chloride 0.9% 100 ML IVPB 100 ML IV ONE (08:51)
[2019-12-15] MEDS: PHENYLEPHRINE HCL IV PRN ×2 (08:55→09:05)
[2019-12-15 08:58] LABS: ALBUMIN 3.8 g/dL (3.5-5.0); ANION GAP 18.5 MEQ/L (5-15); BILIRUBIN,TOTAL 1.1 mg/dL (0.2-1.3); Calcium 9.3 mg/dL (8.4-10.2); Creatinine 1 3.01 mg/dL (0.66-1.25); MAGNESIUM 1.8 mg/dL (1.6-2.3); Potassium 3.2 mmol/L (3.5-5.1)
[2019-12-15] MEDS ORDERED: Zithromax 500 MG/ 250 ML NaCl Premix 500 MG/250 ML IVPB IV ONE (08:58)
[2019-12-15] MEDS ORDERED: FEVERALL 650 MG ONE (08:58)
[2019-12-15] MEDS ORDERED: ROCEPHIN 1 Gm-D5w 50 ml Bag** 1 G/50 ML IVPB IV ONE (08:59)
[2019-12-15] MEDS ORDERED: FEVERALL 650 MG PR ONE (09:03)
[2019-12-15] MEDS ORDERED: Dextrose 5%/Water IV Soln. 250 ML 250 ML IV ONE (09:10)
[2019-12-15] MEDS ORDERED: PHENYLEPHRINE HCL 10 MG in Dextrose 5%/Water IV Soln. 250 ML 250 ML IV PRN (09:10)
--- NOTE | 2019-12-15 09:32 | XRAY ---
Indication: Short of breath. Comparison: September 05, 2019. Portable chest demonstrates new diffuse patchy airspace opacities bilaterally with small bibasilar effusions. Heart not enlarged for AP portable technique. Bony thorax intact again with mild osteopenia and degenerative changes.
[2019-12-15] MEDS: LEVOPHED 4 MG/4 ML 4,000 MCG in Dextrose 5%/Water IV Soln. 500 ML 500 ML IV PRN ×4 (09:47→21:04)
[2019-12-15 09:52] LABS: Ferritin 40.8 ng/mL (17.9-464)
[2019-12-15 09:55] LABS: Appearance CLEAR (CLEAR); Bilirubin NEGATIVE (NEGATIVE); Blood NEGATIVE Ery/ul (0-5); Epithelial Cells RARE /HPF (FEW); Glucose NEGATIVE (NEGATIVE); Ketones TRACE (NEGATIVE); Leukocyte Esterase NEGATIVE (NEGATIVE); Nitrite NEGATIVE (NEGATIVE); Protein,Urine Dip NEGATIVE (Negative); Specific Gravity 1.018 (1.005-1.025); Urobilinogen NEGATIVE mg/dL (0-1); WBC 0-2 /HPF (0-5)
[2019-12-15 09:56] LABS: INFLUENZA A NEGATIVE (NEGATIVE); INFLUENZA B NEGATIVE (NEGATIVE); RESPIRATORY SYNCTIAL VIRUS NEGATIVE (Negative)
[2019-12-15] MEDS ORDERED: MORPHINE SULFATE 4 MG INJ IV PRN (10:07)
[2019-12-15] MEDS ORDERED: TYLENOL 325 MG PO PRN ×2 (10:07→11:13)
[2019-12-15] MEDS ORDERED: Zofran 4 MG/2 ML VIAL IV PRN ×2 (10:07→11:13)
[2019-12-15] MEDS ORDERED: Sodium Chloride 0.9% 1000 ML 1,000 ML IV SCH ×2 (10:15→11:00)
[2019-12-15] MEDS ORDERED: ENOXAPARIN SODIUM SQ SCH (10:15)
[2019-12-15] MEDS: Pepcid 20 MG VIAL IV SCH ×2 (12:46→21:46)
[2019-12-15] MEDS: ENOXAPARIN SODIUM SQ SCH (12:46)
[2019-12-15 14:41] LABS: A-aADO2 557; ABG HEMOGLOBIN 12.2; ARTERIAL BLD GAS O2 SATURATION 97.8 % (95-100); ARTERIAL BLOOD GAS BASE EXCESS -4.3 (-2.0-2.0); ARTERIAL BLOOD GAS FIO2 100 %; ARTERIAL BLOOD GAS PCO2 42 mmHg (35-45); ARTERIAL BLOOD GAS PO2 104 mmHg (75-100); ARTERIAL BLOOD GAS pH 7.32 (7.35-7.45); CARBOXYHEMOGLOBIN 1.2 % THgb (0.0-6.9); HCO3- 21.6 (22-28); HGB O2 SAT 96.3 g/dF (94-100); Lactic Acid 3.4 (0.4-2.0); Methhemoglobin 0.3 % (1.4-1.5); paO2 pAO1 0.16
[2019-12-15 14:42] LABS: ABG POTASSIUM 2.9 (3.5-5.1); ABG SITE RIGHT RADIAL; ALLEN TEST OK? YES
--- NOTE | 2019-12-15 15:15 | PCM.HP ---
History of Present Illness - Chief Complaint Chief Complaint: Pneumonia R/O COVID Date: 12/15/19 History of Present Illness: is a 89 year old male. Brought to ER after called for respiratory distress and altered level of consciousness, upon arrival to ER and continuing while in hospital patient is non-responsive. Unable to answer questions. History obtained from medical records. - Review of Systems Constitutional: Fever, Lethargy Respiratory: Short Of Breath All Other Systems: Unable due to condition Medications & Allergies Home Medications: Home Medication List Indapamide 2.5 mg PO DAILY 12/12/14 [History Confirmed 12/15/19] Currie-3/Dha/Epa/Fish Oil [Currie 3 500 Softgel] 1 each PO DAILY 07/05/19 [ History Confirmed 12/15/19] Aspirin [Aspir-Low] 81 mg PO DAILY 07/09/19 [History Confirmed 12/15/19] Non-Formulary Drug [Non-Formulary Item] 1 each PO DAILY 07/09/19 [History Confirmed 12/15/19] Non-Formulary Drug [Non-Formulary Item] 1 each PO DAILY 07/09/19 [History Confirmed 12/15/19] Non-Formulary Drug [Non-Formulary Item] 1 each PO DAILY 07/09/19 [History Confirmed 12/15/19] Non-Formulary Drug [Non-Formulary Item] 1 each PO DAILY 07/09/19 [History Confirmed 12/15/19] Allopurinol 300 mg [Zyloprim 300 mg] 300 mg PO DAILY #30 tablet 07/12/19 [ Rx Confirmed 12/15/19] Potassium Chloride 20 meq PO DAILY #30 tab.er.prt 09/08/19 [Rx Confirmed ] Metoprolol Succinate 25 mg Xl* [Toprol-Xl 25MG Tablets] 25 mg PO DAILY [History Confirmed 12/15/19] Allergies/Adverse Reactions: Allergies Allergy/AdvReac Type Severity Reaction Status Date / Time No Known Drug Allergies Allergy Verified 09/05/19 18:24 - Past Medical History Past Medical History: Yes Neurological History: No Pertinent History ENT History: No Pertinent History Cardiac History: Hypertension Respiratory History: No Pertinent History Endocrine Medical History: No Pertinent History Musculoskelatal History: Arthritis, Degenerative Disk Disease GI Medical History: No Pertinent History History: No Pertinent History Pyscho-Social History: No Pertinent History Male Reproductive Disorders: No Pertinent History Comment: BACK PAIN, Abdominal aortic aneurysm. hypokalemia, some confusion - Past Surgical History Past Surgical History: Yes Neuro Surgical History: No Pertinent History Cardiac History: No Pertinent History Respiratory Surgery: No Pertinent History GI Surgical History: Cholecystectomy, Other Genitourinary Surgical Hx: No Pertinent History Musculskeletal Surgical Hx: Orthopedic Surgery Male Surgical History: No Pertinent History Other Surgical History: back surgery, EGD w/ dilitation, bilateral knee surgeries-repairs on minicus, VEDA - Social History Smoking Status: Unknown if ever smoked How long have you smoked: 65 years Exposure to second hand smoke: No Alcohol: None Drug Use: none - Physical Exam Vital Signs: Vital Signs - 24 hr Temp Pulse Resp BP Pulse Ox 12/15/19 14:00 88 5 L 111/61 95 12/15/19 13:00 87 4 L 109/55 96 12/15/19 12:17 97.7 F 93 H 12 100/64 98 12/15/19 12:00 88 6 L 108/58 95 12/15/19 10:23 99.0 F 92 H 15 117/73 98 12/15/19 10:12 98.8 F 93 H 17 111/68 92 L 12/15/19 10:10 98.8 F 93 H 18 85/62 88 L 12/15/19 09:58 98.8 F 93 H 13 90/55 91 L 12/15/19 09:53 98.8 F 94 H 14 99/58 91 L 12/15/19 09:48 98.8 F 92 H 12 82/65 92 L 12/15/19 09:38 99.0 F 103 H 15 97/57 93 L 12/15/19 09:30 99.3 F 95 H 14 94/57 92 L 12/15/19 09:27 99.3 F 95 H 13 85/56 96 12/15/19 09:24 99.5 F 97 H 14 75/58 97 12/15/19 09:20 99.5 F 97 H 14 75/58 98 12/15/19 09:10 99.7 F 99 H 17 85/60 97 12/15/19 09:08 99.7 F 99 H 16 86/73 97 12/15/19 09:04 99.9 F 96 H 16 89/52 98 12/15/19 08:58 101 H 15 102/63 99 12/15/19 08:55 97 H 15 69/52 100 12/15/19 08:45 99.0 F 98 H 14 58/44 100 12/15/19 08:35 102 H 16 72/46 100 12/15/19 08:24 16 12/15/19 08:22 97.9 F 102 H 16 65/52 Oxygen-Last 24 hours Oxygen Flowrate (L/min)-RT 15 Oxygen Flowrate (L/min)-RT 15 Oxygen Flowrate (L/min)-RT 15 Oxygen Flowrate (L/min)-RT 15 General Appearance: moderate distress Ears, Nose, Throat Exam: TMs normal, dry mucous membranes Neck Exam: normal inspection Respiratory Exam: diminished breath sounds, accessory muscle use, prolonged expirations (upper airway turbulence noted) Cardiovascular Exam: regular rate/rhythm Gastrointestinal/Abdomen Exam: soft, normal bowel sounds, No tenderness, No distention, No mass Extremity Exam: normal inspection Results - Labs Lab/Micro Results: Lab Results-Last 24 Hours 12/15/19 12/15/19 12/15/19 Range/Units 08:27 08:27 08:30 WBC 15.8 H (4.0-10.5) K/mm3 RBC 4.40 (4.1-5.6) M/mm3 Hgb 13.0 (12.5-18.0) gm/dl Hct 42.4 (42-50) % MCV 96.4 (78-100) fl MCH 29.5 (26-32) pg MCHC 30.7 L (32-36) g/dl RDW 15.4 H (11.5-14.0) % Plt Count 313 (150-450) K/mm3 MPV 9.9 (7.5-11.0) fl Gran % 80.6 H (36.0-66.0) % Eos # (Auto) 0.02 (0-0.5) Absolute Lymphs (auto) 1.80 (1.0-4.6) Absolute Monos (auto) 1.21 (0.0-1.3) Lymphocytes % 11.4 L (24.0-44.0) % Monocytes % 7.7 (0.0-12.0) % Eosinophils % 0.1 (0.00-5.0) % Basophils % 0.2 (0.0-0.4) % Absolute Granulocytes 12.73 H (1.4-6.9) Basophils # 0.03 (0-0.4) PT 13.7 H (8.83-12.87) SECONDS INR 1.21 (0.8-3.0) APTT 38.2 H (24.1-36.1) SECONDS D-Dimer 7351 H* (215-500) ng/mL Puncture Site pCO2 (35-45) mmHg pO2 (75-100) mmHg Base Excess (-2.0-2.0) O2 Saturation (94-100) g/dF ABG pH (7.35-7.45) ABG HCO3 (22-28) ABG O2 Sat (Measured) (95-100) % Isidro Test A-a Gradient a/A Ratio Hemoglobin Carboxyhemoglobin (0.0-6.9) % THgb Methemoglobin (1.4-1.5) % Potassium 3.2 L (3.5-5.1) Temperature C POC O2 Flow Rate % Sodium 143 (137-145) mmol/L Chloride 104 (98-107) mmol/L Carbon Dioxide 24 (22-30) mmol/L Anion Gap 18.5 H (5-15) MEQ/L BUN 33 H (9-20) mg/dL Creatinine 3.01 H (0.66-1.25) mg/dL Estimated GFR 21.0 ML/MIN Glucose 132 H (74-106) mg/dL Lactic Acid (0.4-2.0) Calcium 9.3 (8.4-10.2) mg/dL Magnesium 1.8 (1.6-2.3) mg/dL Ferritin 40.8 (17.9-464) ng/mL Total Bilirubin 1.10 (0.2-1.3) mg/dL AST 21 (17-59) U/L ALT 14 (0-50) U/L Alkaline Phosphatase 58 (38-126) U/L Lactate Dehydrogenase 179 (120-246) U/L Troponin I (0.000-0.034) ng/mL NT-Pro-B Natriuret Pep 509 (0-1800) pg/mL Serum Total Protein 7.0 (6.3-8.2) g/dL Albumin 3.8 (3.5-5.0) g/dL Prealbumin (17.6-36.0) mg/dL Urine Color (YELLOW) Urine Appearance (CLEAR) Urine pH (5-6) Ur Specific [place] (1.005-1.025) Urine Protein (Negative) Urine Ketones (NEGATIVE) Urine Blood (0-5) Sanjay/ul Urine Nitrite (NEGATIVE) Urine Bilirubin (NEGATIVE) Urine Urobilinogen (0-1) mg/dL Ur Leukocyte Esterase (NEGATIVE) Urine WBC (Auto) (0-5) /HPF Urine RBC (Auto) (0-2) /HPF U Epithel Cells (Auto) (FEW) /HPF Urine Bacteria (Auto) (NEGATIVE) /HPF Urine Culture Reflexed (NO) Urine Glucose (NEGATIVE) mg/dL Influenza Type A Ag (NEGATIVE) Influenza Type B Ag (NEGATIVE) RSV (PCR) (Negative) 12/15/19 12/15/19 12/15/19 Range/Units 08:30 08:30 09:10 WBC (4.0-10.5) K/mm3 RBC (4.1-5.6) M/mm3 Hgb (12.5-18.0) gm/dl Hct (42-50) % MCV (78-100) fl MCH (26-32) pg MCHC (32-36) g/dl RDW (11.5-14.0) % Plt Count (150-450) K/mm3 MPV (7.5-11.0) fl Gran % (36.0-66.0) % Eos # (Auto) (0-0.5) Absolute Lymphs (auto) (1.0-4.6) Absolute Monos (auto) (0.0-1.3) Lymphocytes % (24.0-44.0) % Monocytes % (0.0-12.0) % Eosinophils % (0.00-5.0) % Basophils % (0.0-0.4) % Absolute Granulocytes (1.4-6.9) Basophils # (0-0.4) PT (8.83-12.87) SECONDS INR (0.8-3.0) APTT (24.1-36.1) SECONDS D-Dimer (215-500) ng/mL Puncture Site RIGHT RADIAL pCO2 42 (35-45) mmHg pO2 104 H (75-100) mmHg Base Excess -4.3 L (-2.0-2.0) O2 Saturation 96.3 (94-100) g/dF ABG pH 7.32 L (7.35-7.45) ABG HCO3 21.6 L (22-28) ABG O2 Sat (Measured) 97.8 (95-100) % Isidro Test YES A-a Gradient 557 a/A Ratio 0.16 Hemoglobin 12.2 Carboxyhemoglobin 1.2 (0.0-6.9) % THgb Methemoglobin 0.3 L (1.4-1.5) % Potassium 2.9 L* (3.5-5.1) Temperature 37.0 C POC O2 Flow Rate 100 % Sodium (137-145) mmol/L Chloride (98-107) mmol/L Carbon Dioxide (22-30) mmol/L Anion Gap (5-15) MEQ/L BUN (9-20) mg/dL Creatinine (0.66-1.25) mg/dL Estimated GFR ML/MIN Glucose (74-106) mg/dL Lactic Acid 3.4 H (0.4-2.0) Calcium (8.4-10.2) mg/dL Magnesium (1.6-2.3) mg/dL Ferritin (17.9-464) ng/mL Total Bilirubin (0.2-1.3) mg/dL AST (17-59) U/L ALT (0-50) U/L Alkaline Phosphatase (38-126) U/L Lactate Dehydrogenase (120-246) U/L Troponin I 0.032 (0.000-0.034) ng/mL NT-Pro-B Natriuret Pep (0-1800) pg/mL Serum Total Protein (6.3-8.2) g/dL Albumin (3.5-5.0) g/dL Prealbumin (17.6-36.0) mg/dL Urine Color (YELLOW) Urine Appearance (CLEAR) Urine pH (5-6) Ur Specific [place] (1.005-1.025) Urine Protein (Negative) Urine Ketones (NEGATIVE) Urine Blood (0-5) Sanjay/ul Urine Nitrite (NEGATIVE) Urine Bilirubin (NEGATIVE) Urine Urobilinogen (0-1) mg/dL Ur Leukocyte Esterase (NEGATIVE) Urine WBC (Auto) (0-5) /HPF Urine RBC (Auto) (0-2) /HPF U Epithel Cells (Auto) (FEW) /HPF Urine Bacteria (Auto) (NEGATIVE) /HPF Urine Culture Reflexed (NO) Urine Glucose (NEGATIVE) mg/dL Influenza Type A Ag NEGATIVE (NEGATIVE) Influenza Type B Ag NEGATIVE (NEGATIVE) RSV (PCR) NEGATIVE (Negative) 12/15/19 12/15/19 12/15/19 Range/Units 09:38 11:29 12:36 WBC (4.0-10.5) K/mm3 RBC (4.1-5.6) M/mm3 Hgb (12.5-18.0) gm/dl Hct (42-50) % MCV (78-100) fl MCH (26-32) pg MCHC (32-36) g/dl RDW (11.5-14.0) % Plt Count (150-450) K/mm3 MPV (7.5-11.0) fl Gran % (36.0-66.0) % Eos # (Auto) (0-0.5) Absolute Lymphs (auto) (1.0-4.6) Absolute Monos (auto) (0.0-1.3) Lymphocytes % (24.0-44.0) % Monocytes % (0.0-12.0) % Eosinophils % (0.00-5.0) % Basophils % (0.0-0.4) % Absolute Granulocytes (1.4-6.9) Basophils # (0-0.4) PT (8.83-12.87) SECONDS INR (0.8-3.0) APTT (24.1-36.1) SECONDS D-Dimer (215-500) ng/mL Puncture Site pCO2 (35-45) mmHg pO2 (75-100) mmHg Base Excess (-2.0-2.0) O2 Saturation (94-100) g/dF ABG pH (7.35-7.45) ABG HCO3 (22-28) ABG O2 Sat (Measured) (95-100) % Isidro Test A-a Gradient a/A Ratio Hemoglobin Carboxyhemoglobin (0.0-6.9) % THgb Methemoglobin (1.4-1.5) % Potassium (3.5-5.1) Temperature C POC O2 Flow Rate % Sodium (137-145) mmol/L Chloride (98-107) mmol/L Carbon Dioxide (22-30) mmol/L Anion Gap (5-15) MEQ/L BUN (9-20) mg/dL Creatinine (0.66-1.25) mg/dL Estimated GFR ML/MIN Glucose (74-106) mg/dL Lactic Acid (0.4-2.0) Calcium (8.4-10.2) mg/dL Magnesium (1.6-2.3) mg/dL Ferritin (17.9-464) ng/mL Total Bilirubin (0.2-1.3) mg/dL AST (17-59) U/L ALT (0-50) U/L Alkaline Phosphatase (38-126) U/L Lactate Dehydrogenase (120-246) U/L Troponin I 0.092 H* (0.000-0.034) ng/mL NT-Pro-B Natriuret Pep (0-1800) pg/mL Serum Total Protein (6.3-8.2) g/dL Albumin (3.5-5.0) g/dL Prealbumin 12.48 L (17.6-36.0) mg/dL Urine Color MILO (YELLOW) Urine Appearance CLEAR (CLEAR) Urine pH 5.0 (5-6) Ur Specific [place] 1.018 (1.005-1.025) Urine Protein NEGATIVE (Negative) Urine Ketones TRACE (NEGATIVE) Urine Blood NEGATIVE (0-5) Sanjay/ul Urine Nitrite NEGATIVE (NEGATIVE) Urine Bilirubin NEGATIVE (NEGATIVE) Urine Urobilinogen NEGATIVE (0-1) mg/dL Ur Leukocyte Esterase NEGATIVE (NEGATIVE) Urine WBC (Auto) 0-2 (0-5) /HPF Urine RBC (Auto) NONE (0-2) /HPF U Epithel Cells (Auto) RARE (FEW) /HPF Urine Bacteria (Auto) NONE (NEGATIVE) /HPF Urine Culture Reflexed ORDERED SEPARATELY (NO) Urine Glucose NEGATIVE (NEGATIVE) mg/dL Influenza Type A Ag (NEGATIVE) Influenza Type B Ag (NEGATIVE) RSV (PCR) (Negative) - Radiology Impressions Radiology Exams & Impressions: Radiology Procedures Category Date Time Status CHEST 1 VIEW (PORTABLE) Stat Exams 12/15/19 08:28 Completed - Other Procedures and Tests Respiratory Therapy 12/15/19 08:15 Standby STAT 12/15/19 08:27 Peak Expiratory Flow Rate ONCE 12/15/19 10:07 EKG DAILY Respiratory Therapy Consult ROUTINE 12/15/19 14:37 Oxygen Non-rebreather 15% Assessment/Plan (1) Altered mental status Current Visit: Yes Status: Acute Assessment & Plan: persists in hospital, pt. admitted with pneumonia on iv antibiotics Code(s): R41.82 - ALTERED MENTAL STATUS, UNSPECIFIED (2) Dehydration Current Visit: Yes Status: Acute Assessment & Plan: gentle hydration to maintaiin renal output only Code(s): E86.0 - DEHYDRATION (3) Pneumonia Current Visit: Yes Status: Acute Assessment & Plan: Iv abx of rocephin and azithromycin have been added. Code(s): J18.9 - PNEUMONIA, UNSPECIFIED ORGANISM (4) Elevated troponin Current Visit: No Status: Acute Assessment & Plan: moniter with serial checks. Code(s): R79.89 - OTHER SPECIFIED ABNORMAL FINDINGS OF BLOOD CHEMISTRY
[2019-12-15] MEDS ORDERED: Lasix 40 MG/4 ML IV ONE (17:58)
[2019-12-15] MEDS: CLINDAMYCIN-D5W 600 MG/50 ML*** 600 MG/50 ML BAG IV SCH ×3 (18:10→23:32)
[2019-12-15] MEDS: Sodium Chloride 0.9% 1000 ML 1,000 ML IV SCH (18:34)
[2019-12-15] MEDS ORDERED: Pepcid 20 MG VIAL IV SCH (22:00)
[2019-12-16] MEDS: LEVOPHED 4 MG/4 ML 4,000 MCG in Dextrose 5%/Water IV Soln. 500 ML 500 ML IV PRN ×8 (00:05→20:23)
[2019-12-16] MEDS: Sodium Chloride 0.9% 1000 ML 1,000 ML IV SCH ×3 (03:32→22:49)
[2019-12-16] MEDS: CLINDAMYCIN-D5W 600 MG/50 ML*** 600 MG/50 ML BAG IV SCH ×4 (06:38→23:01)
[2019-12-16] MEDS: Zithromax 500 MG/ 250 ML NaCl Premix 500 MG/250 ML IVPB IV SCH (09:50)
[2019-12-16] MEDS: ROCEPHIN 1 Gm-D5w 50 ml Bag** 1 G/50 ML IVPB IV SCH (09:50)
[2019-12-16] MEDS: Pepcid 20 MG VIAL IV SCH ×2 (09:50→23:01)
[2019-12-16] MEDS: Ativan 2 MG/1 ML VIAL IV PRN (09:51)
--- NOTE | 2019-12-16 09:53 | PCM.NOTE ---
Date and Time: 12/16/19 0950 Subjective Assessment: Pt. alert but confused this am, moving quit well, too confused to give any reliable history, family noted yesterday he has been choking daily and often through the day for over a month. - Review of Systems All Other Systems: Unable due to condition Objective Exam General Appearance: no apparent distress Neurologic Exam: agitation, uncooperative Skin Exam: normal color, warm, dry Eye Exam: EOMI Ears, Nose, Throat Exam: normal ENT inspection, moist mucous membranes Neck Exam: normal inspection Respiratory Exam: diminished breath sounds Cardiovascular Exam: regular rate/rhythm Gastrointestinal/Abdomen Exam: soft, normal bowel sounds, No tenderness, No distention OBJECTIVE DATA Vital Signs: Vital Signs - 24 hr Temp Pulse Resp BP Pulse Ox 12/16/19 08:59 89 19 129/67 92 L 12/16/19 08:01 92 L 12/16/19 08:00 92 H 16 155/68 98 12/16/19 06:48 96.3 F 96 H 12 149/67 97 12/16/19 06:00 9 L 12/16/19 05:48 86 9 L 100 12/16/19 05:00 11 L 12/16/19 04:57 87 8 L 98 12/16/19 03:57 10 L 12/16/19 03:52 97.5 F 79 10 L 148/66 98 12/16/19 03:00 6 L 12/16/19 02:59 79 6 L 98 12/16/19 02:00 7 L 12/16/19 01:53 78 7 L 99 12/16/19 00:47 80 6 L 128/57 98 12/16/19 00:45 8 L 12/16/19 00:00 98.4 F 80 6 L 131/61 100 12/15/19 23:00 80 4 L 128/60 98 12/15/19 22:00 82 3 L 122/58 98 12/15/19 21:00 84 4 L 98 12/15/19 20:40 96 12/15/19 20:00 97.9 F 80 4 L 113/60 97 12/15/19 19:00 84 4 L 117/58 98 12/15/19 18:00 86 5 L 98 12/15/19 17:00 86 5 L 97 12/15/19 16:00 99.1 F 86 5 L 99/53 97 12/15/19 15:00 86 6 L 108/56 96 12/15/19 14:00 88 5 L 111/61 95 12/15/19 13:00 87 4 L 109/55 96 12/15/19 12:17 97.7 F 93 H 12 100/64 98 12/15/19 12:00 88 6 L 108/58 95 12/15/19 10:23 99.0 F 92 H 15 117/73 98 12/15/19 10:12 98.8 F 93 H 17 111/68 92 L 12/15/19 10:10 98.8 F 93 H 18 85/62 88 L 12/15/19 09:58 98.8 F 93 H 13 90/55 91 L 12/15/19 09:53 98.8 F 94 H 14 99/58 91 L Oxygen-Last 24 hours Oxygen Flowrate (L/min)-RT 15 Oxygen Flowrate (L/min)-RT 15 Oxygen Flowrate (L/min)-RT 15 Oxygen Flowrate (L/min)-RT 15 Oxygen Flowrate (L/min)-RT 15 Oxygen Flowrate (L/min)-RT 15 Oxygen Flowrate (L/min)-RT 15 Oxygen Flowrate (L/min)-RT 15 Oxygen Flowrate (L/min)-RT 15 Oxygen Flowrate (L/min)-RT 15 Oxygen Flowrate (L/min)-RT 15 Oxygen Flowrate (L/min)-RT 15 Oxygen Flowrate (L/min)-RT 15 Oxygen Flowrate (L/min)-RT 15 Oxygen Flowrate (L/min)-RT 15 Oxygen Flowrate (L/min)-RT 15 Oxygen Flowrate (L/min)-RT 15 Pain Assessment - Last Documented Pain Intensity 0 Pain Scale Used FLACC Intake and Output: Intake & Output 12/13/19 12/14/19 12/15/19 12/16/19 11:59 11:59 11:59 11:59 Intake Total 4251 Output Total 1325 Balance 2926 Weight 88.451 kg 87 kg Lab Results: Lab Results-Last 24 Hours 12/15/19 12/15/19 12/15/19 Range/Units 08:30 08:30 09:10 Puncture Site RIGHT RADIAL pCO2 42 (35-45) mmHg pO2 104 H (75-100) mmHg Base Excess -4.3 L (-2.0-2.0) O2 Saturation 96.3 (94-100) g/dF ABG pH 7.32 L (7.35-7.45) ABG HCO3 21.6 L (22-28) ABG O2 Sat (Measured) 97.8 (95-100) % Isidro Test YES A-a Gradient 557 a/A Ratio 0.16 Hemoglobin 12.2 Carboxyhemoglobin 1.2 (0.0-6.9) % THgb Methemoglobin 0.3 L (1.4-1.5) % Potassium 2.9 L* (3.5-5.1) Temperature 37.0 C POC O2 Flow Rate 100 % Lactic Acid 3.4 H (0.4-2.0) Ferritin 40.8 (17.9-464) ng/mL Lactate Dehydrogenase 179 (120-246) U/L Troponin I (0.000-0.034) ng/mL Prealbumin (17.6-36.0) mg/dL Urine Color (YELLOW) Urine Appearance (CLEAR) Urine pH (5-6) Ur Specific [place] (1.005-1.025) Urine Protein (Negative) Urine Ketones (NEGATIVE) Urine Blood (0-5) Sanjay/ul Urine Nitrite (NEGATIVE) Urine Bilirubin (NEGATIVE) Urine Urobilinogen (0-1) mg/dL Ur Leukocyte Esterase (NEGATIVE) Urine WBC (Auto) (0-5) /HPF Urine RBC (Auto) (0-2) /HPF U Epithel Cells (Auto) (FEW) /HPF Urine Bacteria (Auto) (NEGATIVE) /HPF Urine Culture Reflexed (NO) Urine Glucose (NEGATIVE) mg/dL Influenza Type A Ag NEGATIVE (NEGATIVE) Influenza Type B Ag NEGATIVE (NEGATIVE) RSV (PCR) NEGATIVE (Negative) 12/15/19 12/15/19 12/15/19 Range/Units 09:38 11:29 12:36 Puncture Site pCO2 (35-45) mmHg pO2 (75-100) mmHg Base Excess (-2.0-2.0) O2 Saturation (94-100) g/dF ABG pH (7.35-7.45) ABG HCO3 (22-28) ABG O2 Sat (Measured) (95-100) % Isidro Test A-a Gradient a/A Ratio Hemoglobin Carboxyhemoglobin (0.0-6.9) % THgb Methemoglobin (1.4-1.5) % Potassium (3.5-5.1) Temperature C POC O2 Flow Rate % Lactic Acid (0.4-2.0) Ferritin (17.9-464) ng/mL Lactate Dehydrogenase (120-246) U/L Troponin I 0.092 H* (0.000-0.034) ng/mL Prealbumin 12.48 L (17.6-36.0) mg/dL Urine Color MILO (YELLOW) Urine Appearance CLEAR (CLEAR) Urine pH 5.0 (5-6) Ur Specific [place] 1.018 (1.005-1.025) Urine Protein NEGATIVE (Negative) Urine Ketones TRACE (NEGATIVE) Urine Blood NEGATIVE (0-5) Sanjay/ul Urine Nitrite NEGATIVE (NEGATIVE) Urine Bilirubin NEGATIVE (NEGATIVE) Urine Urobilinogen NEGATIVE (0-1) mg/dL Ur Leukocyte Esterase NEGATIVE (NEGATIVE) Urine WBC (Auto) 0-2 (0-5) /HPF Urine RBC (Auto) NONE (0-2) /HPF U Epithel Cells (Auto) RARE (FEW) /HPF Urine Bacteria (Auto) NONE (NEGATIVE) /HPF Urine Culture Reflexed ORDERED SEPARATELY (NO) Urine Glucose NEGATIVE (NEGATIVE) mg/dL Influenza Type A Ag (NEGATIVE) Influenza Type B Ag (NEGATIVE) RSV (PCR) (Negative) 12/15/19 12/15/19 12/15/19 Range/Units 14:30 17:30 18:06 Puncture Site pCO2 (35-45) mmHg pO2 (75-100) mmHg Base Excess (-2.0-2.0) O2 Saturation (94-100) g/dF ABG pH (7.35-7.45) ABG HCO3 (22-28) ABG O2 Sat (Measured) (95-100) % Isidro Test A-a Gradient a/A Ratio Hemoglobin Carboxyhemoglobin (0.0-6.9) % THgb Methemoglobin (1.4-1.5) % Potassium (3.5-5.1) Temperature C POC O2 Flow Rate % Lactic Acid 2.7 H (0.4-2.0) Ferritin (17.9-464) ng/mL Lactate Dehydrogenase (120-246) U/L Troponin I 0.199 H* 0.294 H* (0.000-0.034) ng/mL Prealbumin (17.6-36.0) mg/dL Urine Color (YELLOW) Urine Appearance (CLEAR) Urine pH (5-6) Ur Specific [place] (1.005-1.025) Urine Protein (Negative) Urine Ketones (NEGATIVE) Urine Blood (0-5) Sanjay/ul Urine Nitrite (NEGATIVE) Urine Bilirubin (NEGATIVE) Urine Urobilinogen (0-1) mg/dL Ur Leukocyte Esterase (NEGATIVE) Urine WBC (Auto) (0-5) /HPF Urine RBC (Auto) (0-2) /HPF U Epithel Cells (Auto) (FEW) /HPF Urine Bacteria (Auto) (NEGATIVE) /HPF Urine Culture Reflexed (NO) Urine Glucose (NEGATIVE) mg/dL Influenza Type A Ag (NEGATIVE) Influenza Type B Ag (NEGATIVE) RSV (PCR) (Negative) 12/15/19 12/15/19 Range/Units 21:10 21:25 Puncture Site pCO2 (35-45) mmHg pO2 (75-100) mmHg Base Excess (-2.0-2.0) O2 Saturation (94-100) g/dF ABG pH (7.35-7.45) ABG HCO3 (22-28) ABG O2 Sat (Measured) (95-100) % Isidro Test A-a Gradient a/A Ratio Hemoglobin Carboxyhemoglobin (0.0-6.9) % THgb Methemoglobin (1.4-1.5) % Potassium (3.5-5.1) Temperature C POC O2 Flow Rate % Lactic Acid 2.2 H (0.4-2.0) Ferritin (17.9-464) ng/mL Lactate Dehydrogenase (120-246) U/L Troponin I 0.293 H* (0.000-0.034) ng/mL Prealbumin (17.6-36.0) mg/dL Urine Color (YELLOW) Urine Appearance (CLEAR) Urine pH (5-6) Ur Specific [place] (1.005-1.025) Urine Protein (Negative) Urine Ketones (NEGATIVE) Urine Blood (0-5) Sanjay/ul Urine Nitrite (NEGATIVE) Urine Bilirubin (NEGATIVE) Urine Urobilinogen (0-1) mg/dL Ur Leukocyte Esterase (NEGATIVE) Urine WBC (Auto) (0-5) /HPF Urine RBC (Auto) (0-2) /HPF U Epithel Cells (Auto) (FEW) /HPF Urine Bacteria (Auto) (NEGATIVE) /HPF Urine Culture Reflexed (NO) Urine Glucose (NEGATIVE) mg/dL Influenza Type A Ag (NEGATIVE) Influenza Type B Ag (NEGATIVE) RSV (PCR) (Negative) Radiology Exams: Radiology Procedures Category Date Time Status CHEST 1 VIEW (PORTABLE) DAILY Exams 12/16/19 10:00 Ordered CHEST 1 VIEW (PORTABLE) Stat Exams 12/15/19 08:28 Completed Assessment/Plan (1) Altered mental status Current Visit: Yes Status: Acute Assessment & Plan: Continue treating sepsis Code(s): R41.82 - ALTERED MENTAL STATUS, UNSPECIFIED (2) Dehydration Current Visit: Yes Status: Acute Assessment & Plan: improved clinically recheck labs, continue ivf support. Code(s): E86.0 - DEHYDRATION (3) Pneumonia Current Visit: Yes Status: Acute Assessment & Plan: continue iv abx, will need swallow eval Code(s): J18.9 - PNEUMONIA, UNSPECIFIED ORGANISM (4) Elevated troponin Current Visit: No Status: Acute Assessment & Plan: moniter Code(s): R79.89 - OTHER SPECIFIED ABNORMAL FINDINGS OF BLOOD CHEMISTRY
[2019-12-16] MEDS ORDERED: Zithromax 500 MG/ 250 ML NaCl Premix 500 MG/250 ML IVPB IV SCH (10:00)
[2019-12-16] MEDS ORDERED: ROCEPHIN 1 Gm-D5w 50 ml Bag** 1 G/50 ML IVPB IV SCH (10:00)
[2019-12-16 10:15] LABS: Hematocrit 34.1 % (42-50); Hemoglobin 10.9 gm/dl (12.5-18.0); Mean Cell Volume 93.7 fl (78-100); Mean Corpuscular Hemoglobin 29.9 pg (26-32); Mean Platelet Volume 9.3 fl (7.5-11.0); Platelet Count 200 K/mm3 (150-450); Red Blood Count 3.64 M/mm3 (4.1-5.6); Red Cell Distribution Width 14.7 % (11.5-14.0); White Blood Count 17.2 K/mm3 (4.0-10.5)
[2019-12-16 10:42] LABS: ANION GAP 14.2 MEQ/L (5-15); Calcium 8.1 mg/dL (8.4-10.2); Creatinine 1 2.26 mg/dL (0.66-1.25); Potassium 3.3 mmol/L (3.5-5.1)
[2019-12-16] MEDS: ENOXAPARIN SODIUM SQ SCH (11:33)
[2019-12-16 11:58] LABS: ANISOCYTOSIS 1+; BAND 21 % (0.0-2.0); Lymphocytes 9 % (24-44); Monocyte 4 % (0.0-12.0); Neutrophils 66 % (36.-66.); Platelet Estimate NORMAL (NORMAL); Total Cells Counted 100; Toxic Granulation 2+
--- NOTE | 2019-12-16 20:03 | XRAY ---
Indication: Pneumonia. Suspect COVID 19. Comparison: One day earlier. Portable chest again demonstrates diffuse bilateral patchy airspace opacities with small bibasilar effusions. Interval mild right upper lobe clearing. Heart is not enlarged. No new cardiopulmonary abnormalities. Comment: Preliminary interpretation was made by [facility]. No critical discrepancy.
[2019-12-16] MEDS ORDERED: BRETHINE 1 MG/ML ONE (22:26)
[2019-12-16] MEDS ORDERED: BRETHINE 1 MG/ML SQ ONE (22:31)
[2019-12-17] MEDS: LEVOPHED 4 MG/4 ML 4,000 MCG in Dextrose 5%/Water IV Soln. 500 ML 500 ML IV PRN ×2 (04:31→14:03)
[2019-12-17] MEDS: CLINDAMYCIN-D5W 600 MG/50 ML*** 600 MG/50 ML BAG IV SCH ×2 (05:08→12:46)
[2019-12-17] MEDS: Sodium Chloride 0.9% 1000 ML 1,000 ML IV SCH ×3 (07:50→22:28)
[2019-12-17] MEDS: Zithromax 500 MG/ 250 ML NaCl Premix 500 MG/250 ML IVPB IV SCH (09:37)
[2019-12-17] MEDS: ROCEPHIN 1 Gm-D5w 50 ml Bag** 1 G/50 ML IVPB IV SCH (09:38)
[2019-12-17] MEDS: Pepcid 20 MG VIAL IV SCH ×2 (09:45→22:03)
[2019-12-17] MEDS: Ativan 2 MG/1 ML VIAL IV PRN ×2 (10:33→15:49)
[2019-12-17] MEDS: ENOXAPARIN SODIUM SQ SCH (10:49)
--- NOTE | 2019-12-17 12:58 | PCM.NOTE ---
Date and Time: 12/17/19 1252 Subjective Assessment: Overnight his levophed drip infiltrated; it was restarted in another IV. His requirement for levophed has waxed and waned. He was talking, earlier in the day, to people that weren't present. Was given ativan for increased restlessness. Currently he mumbles when spoken to but doesn't awake. - Review of Systems Constitutional: No Fever Objective Exam General Appearance: no apparent distress, other (sleeping; mumbles when spoken to/touched. UE occasionally twitch.) Skin Exam: normal color, warm, dry, No rash Ears, Nose, Throat Exam: moist mucous membranes Neck Exam: normal inspection, No lymphadenopathy Respiratory Exam: diminished breath sounds, rhonchi (scattered throughout), No wheezing Cardiovascular Exam: regular rate/rhythm, normal heart sounds, No murmur Gastrointestinal/Abdomen Exam: soft, No normal bowel sounds (hypoactive), No distention, No mass Extremity Exam: No pedal edema, No swelling OBJECTIVE DATA Vital Signs: Vital Signs - 24 hr Temp Pulse Resp BP BP Pulse Ox 12/17/19 12:00 99 F 103 H 17 98/44 94 L 12/17/19 11:00 107 H 17 91/79 94 L 12/17/19 10:00 109 H 17 91/79 12/17/19 09:00 109 H 18 101/61 96 12/17/19 07:59 99.6 F 110 H 19 103/57 94 L 12/17/19 06:54 97.4 F 115 H 19 104/53 12/17/19 06:52 25 H 12/17/19 06:00 25 H 12/17/19 05:59 97.6 F 117 H 25 H 104/54 95 12/17/19 05:00 121 H 17 118/52 93 L 12/17/19 04:00 98.6 F 120 H 20 102/55 95 12/17/19 03:00 119 H 16 119/61 95 12/17/19 02:00 97.9 F 116 H 17 113/59 96 12/17/19 01:00 119 H 20 113/65 94 L 12/16/19 23:57 17 12/16/19 23:49 98.6 F 109 H 17 123/64 93 L 12/16/19 23:00 96 H 15 116/58 95 12/16/19 22:00 98.2 F 88 16 123/55 94 L 12/16/19 20:57 81 20 101/55 96 12/16/19 20:08 83 23 106/55 95 12/16/19 19:28 96 12/16/19 19:00 98.4 F 85 22 110/58 92 L 12/16/19 18:00 81 12 112/61 98 12/16/19 17:00 97.5 F 85 11 L 125/67 98 12/16/19 16:00 16 12/16/19 15:58 82 16 99/52 97 12/16/19 15:52 81 10 L 99/52 94 L 12/16/19 15:00 97.4 F 78 14 101/57 94 L 12/16/19 14:04 76 4 L 120/59 90 L 12/16/19 14:00 4 L 12/16/19 13:51 97.3 F 77 12 117/63 96 12/16/19 13:00 77 7 L 123/63 99 Oxygen-Last 24 hours Oxygen Flowrate (L/min)-RT 3 Oxygen Flowrate (L/min)-RT 3 Oxygen Flowrate (L/min)-RT 3 Oxygen Flowrate (L/min)-RT 3 Oxygen Flowrate (L/min)-RT 3 Oxygen Flowrate (L/min)-RT 3 Oxygen Flowrate (L/min)-RT 3 Oxygen Flowrate (L/min)-RT 3 Oxygen Flowrate (L/min)-RT 3 Oxygen Flowrate (L/min)-RT 3 Oxygen Flowrate (L/min)-RT 3 Oxygen Flowrate (L/min)-RT 3 Oxygen Flowrate (L/min)-RT 3 Oxygen Flowrate (L/min)-RT 3 Oxygen Flowrate (L/min)-RT 3 Oxygen Flowrate (L/min)-RT 3 Oxygen Flowrate (L/min)-RT 3 Oxygen Flowrate (L/min)-RT 10 Oxygen Flowrate (L/min)-RT 10 Pain Assessment - Last Documented Pain Intensity 0 Pain Scale Used 0-10 Pain Scale Intake and Output: Intake & Output 12/15/19 12/16/19 12/17/19 12/18/19 11:59 11:59 11:59 11:59 Intake Total 4251 4502 Output Total 1325 3400 Balance 2926 1102 Weight 88.451 kg 87 kg Lab Results: Lab Results-Last 24 Hours 12/15/19 Range/Units 09:17 COVID-19 (ALISA) SEE SEPARATE REPORT Radiology Exams: Radiology Procedures Category Date Time Status CHEST 1 VIEW (PORTABLE) DAILY Exams 12/16/19 10:00 Completed Assessment/Plan (1) Sepsis Current Visit: Yes Status: Acute Qualifiers: Sepsis type: sepsis due to unspecified organism Sepsis acute organ dysfunction status: with acute organ dysfunction Severe sepsis acute organ dysfunction type: acute renal failure Acute renal failure type: unspecified Severe sepsis shock status: with septic shock Qualified Code(s): A41.9 - Sepsis, unspecified organism; R65.21 - Severe sepsis with septic shock; N17.9 - Acute kidney failure, unspecified Assessment & Plan: On levophed drip currently. (2) Pneumonia Current Visit: Yes Status: Acute Qualifiers: Pneumonia type: due to unspecified organism Laterality: bilateral Lung location: unspecified part of lung Qualified Code(s): J18.9 - Pneumonia, unspecified organism Assessment & Plan: After speaking with pharmacy, I discontinued the clindamycin, leaving pt on rocephin and zithromax (day #3). Currently on 3L O2 per oxymask. His condition is certainly guarded, I would say prognosis is poor, as pt has already done better than expected on admission. Code(s): J18.9 - PNEUMONIA, UNSPECIFIED ORGANISM (3) Renal insufficiency Current Visit: Yes Status: Acute Assessment & Plan: His eGFR was normal in Jun 2019. Will gently try to rehydrate today, with four spread out boluses of 250cc NS. (4) Altered mental status Current Visit: Yes Status: Acute Qualifiers: Altered mental status type: delirium Qualified Code(s): R41.0 - Disorientation, unspecified Assessment & Plan: In Sep, he apparently went in to see Dr. Gong for an office visit so I must assume he was completely alert and oriented. Code(s): R41.82 - ALTERED MENTAL STATUS, UNSPECIFIED (5) CAD (coronary artery disease) Current Visit: Yes Status: Chronic Qualifiers: Coronary Disease-Associated Artery/Lesion type: [place] artery [place] vs. transplanted heart: [place] heart Associated angina: without angina Qualified Code(s): I25.10 - Atherosclerotic heart disease of [place] coronary artery without angina pectoris Code(s): I25.10 - ATHSCL HEART DISEASE OF [place] CORONARY ARTERY W/O ANG PCTRS (6) Osteoarthritis Current Visit: Yes Status: Chronic Qualifiers: Osteoarthritis location: unspecified site Osteoarthritis type: unspecified Qualified Code(s): M19.90 - Unspecified osteoarthritis, unspecified site Code(s): M19.90 - UNSPECIFIED OSTEOARTHRITIS, UNSPECIFIED SITE
[2019-12-17 13:53] LABS: Absolute Neutrophil Ct (ANC) 6.07 (1.4-6.9); BASOPHIL % 0.1 % (0.0-0.4); Basophil (Absolute #) 0.01 (0-0.4); Eosinophil % 0.7 % (0.00-5.0); Eosinophil (Absolute #) 0.05 (0-0.5); Hematocrit 31.1 % (42-50); Hemoglobin 9.7 gm/dl (12.5-18.0); Lymphocyte (Absolute #) 0.62 (1.0-4.6); Lymphocytes % 8.5 % (24.0-44.0); Mean Cell Volume 95.4 fl (78-100); Mean Corpuscular Hemoglobin 29.8 pg (26-32); Mean Corpuscular Hgb Concent. 31.2 g/dl (32-36); Monocyte (Absolute #) 0.56 (0.0-1.3); Monocytes % 7.7 % (0.0-12.0); Platelet Count 133 K/mm3 (150-450); Red Blood Count 3.26 M/mm3 (4.1-5.6); Red Cell Distribution Width 14.9 % (11.5-14.0); White Blood Count 7.3 K/mm3 (4.0-10.5)
[2019-12-17 13:59] LABS: ALBUMIN 2.9 g/dL (3.5-5.0); ANION GAP 13.3 MEQ/L (5-15); BILIRUBIN,TOTAL 0.4 mg/dL (0.2-1.3); Calcium 7.8 mg/dL (8.4-10.2); Creatinine 1 1.49 mg/dL (0.66-1.25); Total Protein 5.5 g/dL (6.3-8.2)
[2019-12-17 14:04] LABS: Potassium 2.8 mmol/L (3.5-5.1)
[2019-12-17] MEDS: POTASSIUM CHLORIDE 20 mEq IN WATER 100ML 20 MEQ/100 ML BAG IV SCH ×2 (14:30→16:21)
[2019-12-17 20:43] LABS: MAGNESIUM 1.5 mg/dL (1.6-2.3); Potassium 3.1 mmol/L (3.5-5.1)
[2019-12-18] MEDS: Sodium Chloride 0.9% 1000 ML 1,000 ML IV SCH (06:24)
--- NOTE | 2019-12-18 09:27 | XRAY ---
Indication: Cough. Pneumonia. Comparison: December 16, 2019. Portable chest demonstrates continued minimal clearing of diffuse bilateral airspace opacities. Previous small bibasilar effusions have also improved. Heart is not enlarged. No new cardiopulmonary abnormalities.
[2019-12-18] MEDS: Zithromax 500 MG/ 250 ML NaCl Premix 500 MG/250 ML IVPB IV SCH (09:45)
[2019-12-18] MEDS: Pepcid 20 MG VIAL IV SCH ×2 (09:47→21:20)
[2019-12-18] MEDS: ROCEPHIN 1 Gm-D5w 50 ml Bag** 1 G/50 ML IVPB IV SCH (09:58)
[2019-12-18 10:48] LABS: ALBUMIN 2.9 g/dL (3.5-5.0); ALKALINE PHOSPHATASE 51 U/L (38-126); ANION GAP 12.4 MEQ/L (5-15); BLOOD UREA NITROGEN 30 mg/dL (9-20); CHLORIDE 108 mmol/L (98-107); Calcium 8.2 mg/dL (8.4-10.2); Carbon Dioxide 22 mmol/L (22-30); Creatinine 1 1.13 mg/dL (0.66-1.25); Glucose 72 mg/dL (74-106); SGOT/AST 19 U/L (17-59); SGPT/ALT 11 U/L (0-50); SODIUM 140 mmol/L (137-145); Total Protein 5.7 g/dL (6.3-8.2)
[2019-12-18] MEDS: MORPHINE SULFATE 4 MG INJ IV PRN ×3 (11:09→22:38)
[2019-12-18] MEDS: Ativan 2 MG/1 ML VIAL IV PRN ×2 (11:18→23:17)
[2019-12-18] MEDS ORDERED: TRANDATE 20 MG/5 ML SYRINGE IV ONE (11:23)
--- NOTE | 2019-12-18 12:04 | ECHO ---
Transthoracic echocardiographic examination and color Doppler was done on 12/18/2019. INDICATION: Shortness of breath. IMPRESSION: 1) NO DEFINITE REGIONAL WALL MOTION ABNORMALITY. ESTIMATED GLOBAL LEFT VENTRICULAR EJECTION FRACTION AROUND 50 TO 60%. 2) TRACE TRICUSPID REGURGITATION. RIGHT VENTRICULAR SYSTOLIC PRESSURE OF 23 MM OF MERCURY. 3) MILDLY DILATED RIGHT SIDED CHAMBERS. 4) LEFT VENTRICULAR HYPERTROPHY. 5) LEFT VENTRICULAR DIASTOLIC DYSFUNCTION. 6) MILDLY DILATED AORTIC ROOT. The left ventricle is visualized and demonstrated adequate motion of all the segments. Estimated global left ventricular ejection fraction of about 50 to 60%. There is concentric left ventricular hypertrophy with the basal septum being prominent. There is no significant gradient across the left ventricular outflow tract. The mitral valve is sclerotic but opens adequately. The tissue Doppler study of the lateral mitral annulus is suggestive of left ventricular diastolic dysfunction. The left atrium is normal. The aortic valve is mildly sclerotic and appears to be bicuspid. The peak gradient across the aortic valve is 10 mm of Mercury. The right side chambers appears to be mildly dilated. There is trace tricuspid regurgitation. The right ventricular systolic pressure of 23 mm of Mercury. The aortic root appears to be mildly dilated.
[2019-12-18] MEDS: POTASSIUM CHLORIDE 20 mEq IN WATER 100ML 20 MEQ/100 ML BAG IV SCH ×2 (12:36→14:49)
[2019-12-18] MEDS: Dextrose 5%-NS IV Solution 1000 ML 1,000 ML IV SCH (12:42)
--- NOTE | 2019-12-18 12:59 | XRAY ---
Indication: Altered mental status. Loss of consciousness. Multiple contiguous axial images obtained through the head without contrast. Comparison: September 05, 2019. Stable age-appropriate global atrophy and mild periventricular degenerative micro-ischemia bilaterally. Again no acute intracranial hemorrhage, abnormal extra-axial fluid collection, or mass effect. Fourth ventricle is midline without hydrocephalus. Bony calvarium remains intact. Stable left maxillary sinus mucosal thickening. Stable near complete opacification of the right middle ear and mastoid air cells with new left middle ear opacification. Stable left mastoidectomy. Impression: 1. Continued nonacute senile brain. 2. Stable near-complete opacification right middle ear/right mastoid air cells with new left middle ear opacification presumed inflammatory.
--- NOTE | 2019-12-18 13:03 | XRAY ---
Indication: Elevated d-dimer. Multiple contiguous axial images obtained through the chest using 80 cc Isovue 370 contrast and PE protocol. Comparison: CT chest without contrast December 12, 2014. There is adequate opacification of the pulmonary arteries. However diffuse respiration artifact markedly limits evaluation of the more distal lobar and segmental branches. No large central pulmonary embolus. Heart is not enlarged. Aorta remains mildly arteriosclerotic without aneurysm/dissection. Interval enlarging mediastinal lymph nodes, largest subcarinal measuring 2.1 x 3.8 cm. No pathologic hilar lymphadenopathy. Examination of the lung parenchyma demonstrates new diffuse airspace disease bilaterally, small bilateral effusions, and mild bibasilar dependent atelectasis. Stable small lingula calcified granuloma. Bony thorax again demonstrates osteopenia and mild degenerative changes throughout the spine. New nondisplaced healing posterior lateral right 6 rib fracture and remote-appearing inferior L1 endplate fracture with 25-50% height loss. Limited upper abdomen demonstrate stable left adrenal adenoma and a few splenic calcified granulomas. Impression: 1. Pulmonary embolus evaluation limited due to diffuse respiration artifact. No large central pulmonary embolus. 2. New diffuse bilateral pneumonia with small effusions. 3. New prominent mediastinal lymph nodes presumed reactive. 4. New healing right 6 rib fracture and remote-appearing L1 endplate fracture. 5. Stable left adrenal adenoma and evidence for old granulomatous disease.
[2019-12-18] MEDS: ENOXAPARIN SODIUM SQ SCH (13:22)
[2019-12-18] MEDS ORDERED: TRANDATE 20 MG/5 ML SYRINGE IV PRN (13:58)
[2019-12-18 15:07] LABS: Hematocrit 29.9 % (42-50); Hemoglobin 9.5 gm/dl (12.5-18.0); Mean Cell Volume 93.1 fl (78-100); Mean Corpuscular Hemoglobin 29.6 pg (26-32); Mean Corpuscular Hgb Concent. 31.8 g/dl (32-36); Mean Platelet Volume 9.9 fl (7.5-11.0); Platelet Count 175 K/mm3 (150-450); Red Blood Count 3.21 M/mm3 (4.1-5.6); White Blood Count 8.8 K/mm3 (4.0-10.5)
[2019-12-18 15:37] LABS: ANISOCYTOSIS 1+; BAND 4 % (0.0-2.0); Lymphocytes 6 % (24-44); Monocyte 8 % (0.0-12.0); Neutrophils 82 % (36.-66.); Platelet Estimate NORMAL (NORMAL); Total Cells Counted 100
[2019-12-18 15:38] LABS: Toxic Granulation 1+
--- NOTE | 2019-12-18 20:19 | PCM.NOTE ---
Date and Time: 12/18/192012 Subjective Assessment: 89 yr old male seen and examined this am. Patient is unable to answer questions related due to AMS - Review of Systems All Other Systems: Unable due to condition (Patient has AMS with encephalopathy) Objective Exam General Appearance: moderate distress (Nurse reported patient was agitated and groaning.) Neurologic Exam: other (Patient is unable to answer questions due to AMS. Unable to do full neuro assessment due to AMS), No oriented x 3, No normal mood/ affect Skin Exam: normal color, warm, dry Eye Exam: eyes nml inspection Ears, Nose, Throat Exam: moist mucous membranes Neck Exam: normal inspection Respiratory Exam: crackles/rales, rhonchi, No normal breath sounds, No chest tenderness, No lungs clear, No wheezing, No stridor Cardiovascular Exam: normal heart sounds, tachycardia, No murmur, No friction rub, No gallop, No edema Gastrointestinal/Abdomen Exam: soft, normal bowel sounds, No tenderness, No distention Extremity Exam: normal inspection Male Genitalia Exam: deferred Rectal Exam: deferred OBJECTIVE DATA Vital Signs: Vital Signs - 24 hr Temp Pulse Resp BP Pulse Ox 12/18/19 19:00 98.8 F 107 H 18 114/77 93 L 12/18/19 17:13 99.3 F 110 H 18 109/66 12/18/19 17:00 99.3 F 110 H 18 109/66 12/18/19 16:00 99.3 F 107 H 17 120/71 98 12/18/19 15:00 99.5 F 108 H 20 85/54 90 L 12/18/19 14:00 99.5 F 120 H 20 105/71 92 L 12/18/19 13:00 99.3 F 124 H 18 117/87 93 L 12/18/19 12:00 99.1 F 122 H 24 93/52 89 L 12/18/19 11:45 24 12/18/19 11:00 24 12/18/19 10:54 98.8 F 138 H 22 124/79 91 L 12/18/19 10:19 98.8 F 117 H 22 124/79 93 L 12/18/19 10:00 98.6 F 107 H 20 151/82 90 L 12/18/19 09:00 98.6 F 107 H 20 151/82 90 L 12/18/19 08:00 22 05/04/20 07:54 98.6 F 102 H 22 132/68 93 L 12/18/19 06:50 98.6 F 101 H 18 144/77 92 L 12/18/19 05:51 98.8 F 101 H 24 114/70 94 L 12/18/19 05:00 99.0 F 105 H 23 124/64 93 L 12/18/19 04:00 99.0 F 103 H 22 122/67 91 L 12/18/19 02:52 99.1 F 104 H 22 122/65 91 L 12/18/19 01:58 99.3 F 102 H 19 107/56 94 L 12/18/19 00:57 99.7 F 103 H 18 98/55 92 L 12/18/19 00:00 99.9 F 106 H 18 115/56 94 L 12/17/19 23:00 100.0 F 108 H 22 127/67 93 L 12/17/19 22:00 100.0 F 108 H 18 92/67 93 L 12/17/19 21:00 99.9 F 110 H 22 120/56 89 L Oxygen-Last 24 hours Oxygen Flowrate (L/min)-RT 4 Oxygen Flowrate (L/min)-RT 4 Pain Assessment - Last Documented Pain Intensity 0 Pain Scale Used 0-10 Pain Scale Intake and Output: Intake & Output 12/16/19 12/17/19 12/18/19 12/19/19 11:59 11:59 11:59 11:59 Intake Total 4251 4502 4151 1301 Output Total 1325 3400 4200 3300 Balance 2926 1102 -49 -1998 Weight 87 kg 87 kg Lab Results: Lab Results-Last 24 Hours 12/17/19 12/18/19 12/18/19 Range/Units 20:28 10:04 10:04 WBC 8.8 (4.0-10.5) K/mm3 RBC 3.21 L (4.1-5.6) M/mm3 Hgb 9.5 L (12.5-18.0) gm/dl Hct 29.9 L (42-50) % MCV 93.1 (78-100) fl MCH 29.6 (26-32) pg MCHC 31.8 L (32-36) g/dl RDW 15.0 H (11.5-14.0) % Plt Count 175 (150-450) K/mm3 MPV 9.9 (7.5-11.0) fl Segmented Neutrophils 82 H (36.-66.) % Band Neutrophils 4 H (0.0-2.0) % Lymphocytes (Manual) 6 L (24-44) % Monocytes (Manual) 8 (0.0-12.0) % Toxic Granulation 1+ Platelet Estimate NORMAL (NORMAL) RBC Morphology ABNORMAL Anisocytosis 1+ Sodium 140 (137-145) mmol/L Potassium 3.1 L 3.0 L (3.5-5.1) mmol/L Chloride 108 H (98-107) mmol/L Carbon Dioxide 22 (22-30) mmol/L Anion Gap 12.4 (5-15) MEQ/L BUN 30 H (9-20) mg/dL Creatinine 1.13 (0.66-1.25) mg/dL Estimated GFR > 60.0 ML/MIN Glucose 72 L (74-106) mg/dL Calcium 8.2 L (8.4-10.2) mg/dL Magnesium 1.5 L (1.6-2.3) mg/dL Total Bilirubin 0.50 (0.2-1.3) mg/dL AST 19 (17-59) U/L ALT 11 (0-50) U/L Alkaline Phosphatase 51 (38-126) U/L Troponin I (0.000-0.034) ng/mL NT-Pro-B Natriuret Pep (0-1800) pg/mL Serum Total Protein 5.7 L (6.3-8.2) g/dL Albumin 2.9 L (3.5-5.0) g/dL 12/18/19 12/18/19 12/18/19 Range/Units 10:04 10:09 14:10 WBC (4.0-10.5) K/mm3 RBC (4.1-5.6) M/mm3 Hgb (12.5-18.0) gm/dl Hct (42-50) % MCV (78-100) fl MCH (26-32) pg MCHC (32-36) g/dl RDW (11.5-14.0) % Plt Count (150-450) K/mm3 MPV (7.5-11.0) fl Segmented Neutrophils (36.-66.) % Band Neutrophils (0.0-2.0) % Lymphocytes (Manual) (24-44) % Monocytes (Manual) (0.0-12.0) % Toxic Granulation Platelet Estimate (NORMAL) RBC Morphology Anisocytosis Sodium (137-145) mmol/L Potassium (3.5-5.1) mmol/L Chloride (98-107) mmol/L Carbon Dioxide (22-30) mmol/L Anion Gap (5-15) MEQ/L BUN (9-20) mg/dL Creatinine (0.66-1.25) mg/dL Estimated GFR ML/MIN Glucose (74-106) mg/dL Calcium (8.4-10.2) mg/dL Magnesium (1.6-2.3) mg/dL Total Bilirubin (0.2-1.3) mg/dL AST (17-59) U/L ALT (0-50) U/L Alkaline Phosphatase (38-126) U/L Troponin I 0.137 H* 0.125 H* (0.000-0.034) ng/mL NT-Pro-B Natriuret Pep 5950 H (0-1800) pg/mL Serum Total Protein (6.3-8.2) g/dL Albumin (3.5-5.0) g/dL 12/18/19 12/18/19 Range/Units 17:10 18:24 WBC (4.0-10.5) K/mm3 RBC (4.1-5.6) M/mm3 Hgb (12.5-18.0) gm/dl Hct (42-50) % MCV (78-100) fl MCH (26-32) pg MCHC (32-36) g/dl RDW (11.5-14.0) % Plt Count (150-450) K/mm3 MPV (7.5-11.0) fl Segmented Neutrophils (36.-66.) % Band Neutrophils (0.0-2.0) % Lymphocytes (Manual) (24-44) % Monocytes (Manual) (0.0-12.0) % Toxic Granulation Platelet Estimate (NORMAL) RBC Morphology Anisocytosis Sodium (137-145) mmol/L Potassium 3.2 L (3.5-5.1) mmol/L Chloride (98-107) mmol/L Carbon Dioxide (22-30) mmol/L Anion Gap (5-15) MEQ/L BUN (9-20) mg/dL Creatinine (0.66-1.25) mg/dL Estimated GFR ML/MIN Glucose (74-106) mg/dL Calcium (8.4-10.2) mg/dL Magnesium (1.6-2.3) mg/dL Total Bilirubin (0.2-1.3) mg/dL AST (17-59) U/L ALT (0-50) U/L Alkaline Phosphatase (38-126) U/L Troponin I 0.130 H* (0.000-0.034) ng/mL NT-Pro-B Natriuret Pep (0-1800) pg/mL Serum Total Protein (6.3-8.2) g/dL Albumin (3.5-5.0) g/dL Radiology Exams: Radiology Procedures Category Date Time Status CHEST 1 VIEW (PORTABLE) Routine Exams 12/18/19 08:45 Completed CHEST WITH CONTRAST [CT] Urgent Exams 12/18/19 12:33 Completed ECHO W/2D AND DOPPLER [US] Routine Exams 12/18/19 09:48 Draft HEAD WITHOUT CONTRAST [CT] Urgent Exams 12/18/19 12:19 Completed Multi-Disciplinary Progress Notes: Multi-Disciplinary Progress Notes 12/18/19 12:57 Case Management Note by Massiel Auguste DR. CALLED AND CHANGED IVF TO D5NS FOR HIS BLOOD SUGAR. POTASSIUM RIDER CHANGED TO INFUSE THRU A PRIMARY LINE SO THESE BOTH COULD RUN. PRIMARY RATE DECREASED TO 30 TO MAKE A TOTAL IVF INFUSION RATE OF 75CC/HR Initialized on 12/18/19 12:57 - END OF NOTE 12/18/19 11:56 Speech Therapy Note by Denise White Patient transported to Radiology for CT scan of head. Per nurse, given Ativan and Morphene prior to transport. Nurse to notify ST when/if patient is awake/ alert for clinical swallow evaluation. MS Santos, CCC/ANALYSIS SPECIALIST Initialized on 12/18/19 11:56 - END OF NOTE 12/18/19 11:07 Case Management Note by Massiel Auguste S/W [facility] ([facility] ALEKSEY IS CURRENTLY AT WORK AT THE [employer] AND UNABLE TO TALK ON CELL. PATIENT LIVES IN AN APARTMENT ATTACHED TO THEIR HOUSE AND [employer] GIVES HIM HIS MEDICATIONS. PATIENT HAD BEEN INDEPENDENT BUT LATELY HAS BEEN REQUIRING MORE ASSISTANCE. SHE REPORTS THEY DID NOT THINK THEY WOULD PLACE PATIENT IN A [facility]. THEY WOULD LIKELY DECIDE TO TAKE PATIENT HOME WITH HOSPICE AND STAY WITH PATIENT 08/03 TO PROVIDE CARE. SHE WAS GIVEN HOSPICE COMPANY OPTIONS. HER AND ALEKSEY WILL DISCUSS THIS. WILL CONTINUE TO BE IN CONTACT AND PROVIDE SUPPORT Initialized on 12/18/19 11:07 - END OF NOTE Assessment/Plan (1) Encephalopathy Current Visit: Yes Status: Acute Assessment & Plan: 89 yr old male with encephalopathy likely due to sepsis. Patient is on antibiotics for pneumonia which appears to be the source of infection. Patient was still altered on exam this am. CT head was done and showed ear infection/ inflammation. Will continue on current antibiotic therapy. WBC has trended down. Code(s): G93.40 - ENCEPHALOPATHY, UNSPECIFIED (2) Sepsis Current Visit: Yes Status: Acute Qualifiers: Sepsis acute organ dysfunction status: with acute organ dysfunction Severe sepsis acute organ dysfunction type: acute renal failure Acute renal failure type: unspecified Severe sepsis shock status: with septic shock Assessment & Plan: Patient was requiring pressors and had jose and acute resp failure requiring 4l of oxygen. Pressors were discontinued last night and bp has remained above 90/ 60. Patient's source of infection was likely pneumonia. Blood cultures neg so far. Urine culture neg. CXR and CT demonstrated pneumonia. Patient is on antibiotics and WBC has trended down he has been afebrile (3) Hx of fracture of rib Current Visit: Yes Status: Acute Assessment & Plan: Patient has a newly healing rib fx and L1 endplate fx likely from fall unknown date. Patient has been moaning and has been getting morphine for pain. Will continue to monitor and possible consult neurosurgery to see if fx needs surgical repair or medical management. Code(s): Z87.81 - PERSONAL HISTORY OF (HEALED) TRAUMATIC FRACTURE (4) JOSE (acute kidney injury) Current Visit: Yes Status: Acute Assessment & Plan: Patient was reportedly dehydrated upon admission from ER. Patient has been given IV fluids and kidney function has improved. Code(s): N17.9 - ACUTE KIDNEY FAILURE, UNSPECIFIED (5) Closed fracture of lumbosacral vertebra Current Visit: Yes Status: Acute Assessment & Plan: Same plan as above Code(s): S32.9XXA - FRACTURE OF UNSP PARTS OF LUMBOSACRAL SPINE AND PELVIS, INIT (6) Hypokalemia Current Visit: Yes Status: Acute Assessment & Plan: Present on admission. Patient has had potassium repletion. He had mag level drawn which was low. Will replete both to correct hypokalemia Code(s): E87.6 - HYPOKALEMIA (7) Elevated troponin Current Visit: No Status: Acute Assessment & Plan: Not likely a NSTEMI but possibly related to heart failure jose and sepsis. It initially trended down then became slightly elevated and has been hovering around the same value. With patient's comorbities will continue to monitor as he is likely not a candidate for cardiac intervention at this time. Code(s): R79.89 - OTHER SPECIFIED ABNORMAL FINDINGS OF BLOOD CHEMISTRY (8) Tachycardia Current Visit: Yes Status: Acute Assessment & Plan: Unsure etiology. Trops are elevated but trending down. EKG showed showed type 1 av block and tachycardia. Echo was performed as well with no clear cause for tachycardia. Will continue to monitor with Tele. Patient initially was on higher dose of IV fluids but was becoming fluid overloaded and so IV fluids had to be turned down. Tachycardia likely not related to sepsis at this time but other etiology Code(s): R00.0 - TACHYCARDIA, UNSPECIFIED
[2019-12-18] MEDS: Magnesium 1 Gm / 100 Ml D5W*** 100 ML IV SCH ×2 (20:47→21:20)
[2019-12-18] MEDS ORDERED: POTASSIUM CHLORIDE 20 mEq IN WATER 100ML 20 MEQ/100 ML BAG IV ONE (21:44)
[2019-12-19] MEDS: MORPHINE SULFATE 4 MG INJ IV PRN ×3 (03:17→20:47)
[2019-12-19 05:40] LABS: ALBUMIN 2.8 g/dL (3.5-5.0); ALKALINE PHOSPHATASE 50 U/L (38-126); ANION GAP 12.2 MEQ/L (5-15); BLOOD UREA NITROGEN 26 mg/dL (9-20); CHLORIDE 111 mmol/L (98-107); Calcium 8.8 mg/dL (8.4-10.2); Carbon Dioxide 22 mmol/L (22-30); Creatinine 1 0.95 mg/dL (0.66-1.25); Glucose 90 mg/dL (74-106); MAGNESIUM 2.3 mg/dL (1.6-2.3); Potassium 3.1 mmol/L (3.5-5.1); SGOT/AST 19 U/L (17-59); SGPT/ALT 11 U/L (0-50); SODIUM 141 mmol/L (137-145); Total Protein 5.6 g/dL (6.3-8.2)
[2019-12-19] MEDS: FEVERALL 650 MG PR PRN ×2 (06:20→21:07)
[2019-12-19] MEDS: Dextrose 5%-NS IV Solution 1000 ML 1,000 ML IV SCH (06:20)
[2019-12-19] MEDS: ROCEPHIN 1 Gm-D5w 50 ml Bag** 1 G/50 ML IVPB IV SCH (09:14)
[2019-12-19] MEDS: Pepcid 20 MG VIAL IV SCH ×2 (09:16→21:09)
[2019-12-19] MEDS: Zithromax 500 MG/ 250 ML NaCl Premix 500 MG/250 ML IVPB IV SCH (10:52)
[2019-12-19] MEDS: ENOXAPARIN SODIUM SQ SCH (10:56)
--- NOTE | 2019-12-19 11:07 | PCM.NOTE ---
Date and Time: 12/19/19 1102 Subjective Assessment: Patient has decreased level of consciousness. Patient is unable to answer questions. He responds to painful stimuli. - Review of Systems Constitutional: Other (Patient is moaning at times. Rattling sounds in throat. ) Cardiac: No Edema All Other Systems: Unable due to condition (Patient has decreased level of consciousness. ) Objective Exam General Appearance: lethargy, thin Neurologic Exam: other (Pupils are mildly reactive and appear to be close to 1 mm. Obtunded. Non verbal), No alert, No oriented x 3, No cooperative Skin Exam: normal color, warm, dry Eye Exam: other (pupils 1 mm reactive to light) Ears, Nose, Throat Exam: moist mucous membranes, other (requiring 4 L of oxygen which is not baseline) Neck Exam: normal inspection Respiratory Exam: crackles/rales, rhonchi, No normal breath sounds, No lungs clear, No diminished breath sounds, No wheezing Cardiovascular Exam: tachycardia, No murmur, No friction rub, No gallop Gastrointestinal/Abdomen Exam: soft, normal bowel sounds, No tenderness, No distention Extremity Exam: No pedal edema, No swelling Male Genitalia Exam: deferred Rectal Exam: deferred OBJECTIVE DATA Vital Signs: Vital Signs - 24 hr Temp Pulse Resp BP Pulse Ox 12/19/19 08:00 99.7 F 108 H 16 137/73 96 12/19/19 04:00 113 H 12/19/19 03:22 99.5 F 113 H 21 140/73 94 L 12/19/19 00:00 106 H 12/18/19 23:52 98.6 F 121 H 18 139/85 92 L 12/18/19 22:37 106 H 131/77 12/18/19 19:20 96 12/18/19 19:00 98.8 F 107 H 18 114/77 93 L 12/18/19 17:13 99.3 F 110 H 18 109/66 12/18/19 17:00 99.3 F 110 H 18 109/66 12/18/19 16:00 99.3 F 107 H 17 120/71 98 12/18/19 15:00 99.5 F 108 H 20 85/54 90 L 12/18/19 14:00 99.5 F 120 H 20 105/71 92 L 12/18/19 13:00 99.3 F 124 H 18 117/87 93 L 12/18/19 12:00 99.1 F 122 H 24 93/52 89 L 12/18/19 11:45 24 Oxygen-Last 24 hours Oxygen Flowrate (L/min)-RT 4 Oxygen Flowrate (L/min)-RT 4 Oxygen Flowrate (L/min)-RT 4 Pain Assessment - Last Documented Pain Intensity 0 [facility] Intake and Output: Intake & Output 12/16/19 12/17/19 12/18/19 12/19/19 11:59 11:59 11:59 11:59 Intake Total 4251 4502 4151 2574 Output Total 1325 3400 4200 4200 Balance 2926 1102 -49 -1626 Weight 87 kg 87 kg Lab Results: Lab Results-Last 24 Hours 12/18/19 12/18/19 12/18/19 Range/Units 10:04 10:09 14:10 WBC 8.8 (4.0-10.5) K/mm3 RBC 3.21 L (4.1-5.6) M/mm3 Hgb 9.5 L (12.5-18.0) gm/dl Hct 29.9 L (42-50) % MCV 93.1 (78-100) fl MCH 29.6 (26-32) pg MCHC 31.8 L (32-36) g/dl RDW 15.0 H (11.5-14.0) % Plt Count 175 (150-450) K/mm3 MPV 9.9 (7.5-11.0) fl Segmented Neutrophils 82 H (36.-66.) % Band Neutrophils 4 H (0.0-2.0) % Lymphocytes (Manual) 6 L (24-44) % Monocytes (Manual) 8 (0.0-12.0) % Toxic Granulation 1+ Platelet Estimate NORMAL (NORMAL) RBC Morphology ABNORMAL Anisocytosis 1+ Sodium (137-145) mmol/L Potassium (3.5-5.1) mmol/L Chloride (98-107) mmol/L Carbon Dioxide (22-30) mmol/L Anion Gap (5-15) MEQ/L BUN (9-20) mg/dL Creatinine (0.66-1.25) mg/dL Estimated GFR ML/MIN Glucose (74-106) mg/dL Calcium (8.4-10.2) mg/dL Magnesium (1.6-2.3) mg/dL Total Bilirubin (0.2-1.3) mg/dL AST (17-59) U/L ALT (0-50) U/L Alkaline Phosphatase (38-126) U/L Troponin I 0.137 H* 0.125 H* (0.000-0.034) ng/mL Serum Total Protein (6.3-8.2) g/dL Albumin (3.5-5.0) g/dL 12/18/19 12/18/19 12/19/19 Range/Units 17:10 18:24 04:20 WBC (4.0-10.5) K/mm3 RBC (4.1-5.6) M/mm3 Hgb (12.5-18.0) gm/dl Hct (42-50) % MCV (78-100) fl MCH (26-32) pg MCHC (32-36) g/dl RDW (11.5-14.0) % Plt Count (150-450) K/mm3 MPV (7.5-11.0) fl Segmented Neutrophils (36.-66.) % Band Neutrophils (0.0-2.0) % Lymphocytes (Manual) (24-44) % Monocytes (Manual) (0.0-12.0) % Toxic Granulation Platelet Estimate (NORMAL) RBC Morphology Anisocytosis Sodium 141 (137-145) mmol/L Potassium 3.2 L 3.1 L (3.5-5.1) mmol/L Chloride 111 H (98-107) mmol/L Carbon Dioxide 22 (22-30) mmol/L Anion Gap 12.2 (5-15) MEQ/L BUN 26 H (9-20) mg/dL Creatinine 0.95 (0.66-1.25) mg/dL Estimated GFR > 60.0 ML/MIN Glucose 90 (74-106) mg/dL Calcium 8.8 (8.4-10.2) mg/dL Magnesium 2.3 (1.6-2.3) mg/dL Total Bilirubin 0.60 (0.2-1.3) mg/dL AST 19 (17-59) U/L ALT 11 (0-50) U/L Alkaline Phosphatase 50 (38-126) U/L Troponin I 0.130 H* (0.000-0.034) ng/mL Serum Total Protein 5.6 L (6.3-8.2) g/dL Albumin 2.8 L (3.5-5.0) g/dL Radiology Exams: Radiology Procedures Category Date Time Status CHEST 1 VIEW (PORTABLE) Routine Exams 12/18/19 08:45 Completed CHEST WITH CONTRAST [CT] Urgent Exams 12/18/19 12:33 Completed ECHO W/2D AND DOPPLER [US] Routine Exams 12/18/19 09:48 Draft HEAD WITHOUT CONTRAST [CT] Urgent Exams 12/18/19 12:19 Completed Multi-Disciplinary Progress Notes: Multi-Disciplinary Progress Notes 12/19/19 10:44 Case Management Note by Massiel Auguste S/W ALEKSEY- ANSWERED QUESTIONS REGARDING PLAN OF CARE. HE PLANS TO S/W DR. CHAVEZ THIS EVENING TO MAKE DECISIONS REGARDING PLAN OF CARE GOING FORWARD Initialized on 12/19/19 10:44 - END OF NOTE 12/19/19 09:59 Case Management Note by Massiel Auguste CHECKED WITH ADMIN ABOUT SETTING UP A VISITATION FOR ALEKSEY TO SEE PATIENT. CURRENT [place] [id number] POLICY DOES NOT ALLOW ANY VISITORS. PRIMARY NURSE PLANS TO FACETIME WITH FAMILY LATER TODAY AFTER 5 PM. [facility] AWARE AND WILL BE EXPECTING TO HEAR FROM PRIMARY RN WHEN SHE IS READY TO DO THIS. Initialized on 12/19/19 09:59 - END OF NOTE 12/19/19 09:40 Case Management Note by Massiel Auguste S/W DR. CHAVZE- SHE PLANS TO CALL PATIENT'S POA ALEKSEY THIS EVENING TO DISCUSS PATIENT'S CURRENT STATUS SO THAT THEY CAN GET ALL THE INFORMATION AND DISCUSS PATIENT'S PLAN OF CARE. DR. CHAVEZ HAS [facility] AND WILL CALL AFTER 4PM. ALEKSEY'S [facility]WOOD NOTIFIED. Initialized on 12/19/19 09:40 - END OF NOTE 12/18/19 12:57 Case Management Note by Massiel Auguste DR. CALLED AND CHANGED IVF TO D5NS FOR HIS BLOOD SUGAR. POTASSIUM RIDER CHANGED TO INFUSE THRU A PRIMARY LINE SO THESE BOTH COULD RUN. PRIMARY RATE DECREASED TO 30 TO MAKE A TOTAL IVF INFUSION RATE OF 75CC/HR Initialized on 12/18/19 12:57 - END OF NOTE 12/18/19 11:56 Speech Therapy Note by White,Denise Patient transported to Radiology for CT scan of head. Per nurse, given Ativan and Morphene prior to transport. Nurse to notify ST when/if patient is awake/ alert for clinical swallow evaluation. MS Santos, CCC/SELLING MANAGER Initialized on 12/18/19 11:56 - END OF NOTE 12/18/19 11:07 Case Management Note by Massiel Auguste S/W [employer] ([facility]S ) ALEKSEY IS CURRENTLY AT WORK AT THE [employer] AND UNABLE TO TALK ON CELL. PATIENT LIVES IN AN APARTMENT ATTACHED TO THEIR HOUSE AND DA[facility] SUPPLIES GIVES HIM HIS MEDICATIONS. PATIENT HAD BEEN INDEPENDENT BUT LATELY HAS BEEN REQUIRING MORE ASSISTANCE. SHE REPORTS THEY DID NOT THINK THEY WOULD PLACE PATIENT IN A JAIL. THEY WOULD LIKELY DECIDE TO TAKE PATIENT HOME WITH HOSPICE AND STAY WITH PATIENT 08/03 TO PROVIDE CARE. SHE WAS GIVEN HOSPICE COMPANY OPTIONS. HER AND ALEKSEY WILL DISCUSS THIS. WILL CONTINUE TO BE IN CONTACT AND PROVIDE SUPPORT Initialized on 12/18/19 11:07 - END OF NOTE Assessment/Plan (1) Encephalopathy Current Visit: Yes Status: Acute Assessment & Plan: 89 yr old male seen this am and still has decreased LOC. This is likely multifactorial due to sepsis from pneumonia, jose and other potential causes. Will continue to monitor labs and vital signs. After examination this am I had a conversation with the LYNETTE hollingsworth and his . We discussed the prognosis of the patient Patient had papers supporting no artificial care measures including nutrition. Patient has not eaten since Wednesday. I discussed with family that without patient being able to swallow we could not feed him unless artificial nutrition was provided. Family wanted to continue to follow patient's expressed wishes and chose to provide patient with comfort care. It was decided that patient would go home with hospice. Code(s): G93.40 - ENCEPHALOPATHY, UNSPECIFIED (2) Sepsis Current Visit: Yes Status: Acute Qualifiers: Sepsis acute organ dysfunction status: with acute organ dysfunction Severe sepsis acute organ dysfunction type: acute renal failure Acute renal failure type: unspecified Severe sepsis shock status: with septic shock Assessment & Plan: Blood cultures neg. Patient had pneumonia and otitis media. Patient has been on roceph and azith. He was put on zosyn for broader coverage. Although patient's VS have improved some. He still remains tachycardic. He has not required pressors since wednesday night. He had IV fluids decreased. His WBC count had decreased and kidney functioned improved. Patient has remained obtunded. Plan for home hospice care per family request (3) Hx of fracture of rib Current Visit: Yes Status: Acute Code(s): Z87.81 - PERSONAL HISTORY OF ( HEALED) TRAUMATIC FRACTURE (4) JOSE (acute kidney injury) Current Visit: Yes Status: Acute Assessment & Plan: Patient received IV fluids for sepsis which corrected his JOSE. Code(s): N17.9 - ACUTE KIDNEY FAILURE, UNSPECIFIED (5) Closed fracture of lumbosacral vertebra Current Visit: Yes Status: Acute Code(s): S32.9XXA - FRACTURE OF UNSP PARTS OF LUMBOSACRAL SPINE AND PELVIS, INIT (6) Hypokalemia Current Visit: Yes Status: Acute Assessment & Plan: Patient had repletion of K and Mg and continued to req K repletion. Code(s): E87.6 - HYPOKALEMIA (7) Elevated troponin Current Visit: No Status: Acute Assessment & Plan: Mulitifactorial and patient would not be stable enough to tolerated cardiac intervention at this time. Code(s): R79.89 - OTHER SPECIFIED ABNORMAL FINDINGS OF BLOOD CHEMISTRY (8) Tachycardia Current Visit: Yes Status: Acute Assessment & Plan: Still present with no clear etiology. Will continue to monitor until patient has been accepted by hospice physician Code(s): R00.0 - TACHYCARDIA, UNSPECIFIED Discharge Summary Date of Admission: 12/15/19 10:55 Date of Discharge: 12/19/2019 Admitting Physician: IVY CHÁVEZ Consults: hospice Primary Care Provider: CRISTINA HORTA
[2019-12-19] MEDS: Ativan 2 MG/1 ML VIAL IV PRN (11:26)
[2019-12-19] MEDS ORDERED: PHARMACY DOSING REQUEST MC ONE (12:01)
[2019-12-19] MEDS: Zosyn INJ 4.5 GM in Sodium Chloride 100ML MINI-BAG PLUS 100 ML IV SCH ×2 (14:39→21:10)
[2019-12-19 21:51] VITALS: O2SAT 95
[2019-12-19 22:11] VITALS: BP 139/97; PULSE 134
== END 2019-12-19 23:40 | disposition hospice, home (50) | DRG 193 ==
LOC: ED 08:20 → MED SURG 10:55 → ED 10:58 → ICU 12-16 19:02
PROVIDERS: ADMIT Family Medicine; ATTEND Family Medicine
DX: J18.9 Pneumonia, unspecified organism (principal); A41.9 Sepsis, unspecified organism; S32.9XXA Fracture of unspecified parts of lumbosacral spine and pelvis, initial encounter for closed fracture; N17.9 Acute kidney failure, unspecified; G93.40 Encephalopathy, unspecified; R41.82 Altered mental status, unspecified; R06.03 Acute respiratory distress; I10 Essential (primary) hypertension; E86.0 Dehydration; E87.6 Hypokalemia; R79.89 Other specified abnormal findings of blood chemistry; I25.10 Atherosclerotic heart disease of native coronary artery without angina pectoris; M19.90 Unspecified osteoarthritis, unspecified site; R00.0 Tachycardia, unspecified; H66.90 Otitis media, unspecified, unspecified ear; Z79.899 Other long term (current) drug therapy; Z87.81 Personal history of (healed) traumatic fracture
CPT/HCPCS: 36415; 70450; 71045; 71260; 80048; 80053; 81001; 82375; 82728; 82803; 83605; 83615; 83735; 83880; 84132; 84134; 84484; 85025; 85379; 85610; 85730; 87040; 87086; 87631; 93005; 93041; 93306; 94762; 94799; 96360; 96365; 96367; 96374; 96376; 99291; 99292; U0002; 36600; 94760; 99285; J0456; J0696; J1650; J1940; J2060; J2270; J2370; J3475; J3480; A9270-GY